=== PATIENT | male | born 1950 | race Caucasian/White ===

== ENCOUNTER 2024-08-06 17:58 | Inpatient (IN) | payer OTHER, MEDICAID ==
[~2024-08-06] VITALS: Ht 180.3 cm; Wt 69.4 kg
[2024-08-06] MEDS: NOREPINEPHRINE 8 MG/250ML KIT 250 ML IV SCH
--- NOTE | 2024-08-06 18:12 | ED.PDOC ---
History of Present Illness HPI Comments 74 year old male with a history of COPD, HTN, and A-Fib was BIBA for the c/c of SOB. Pt states that he was at home with his sister and nephew when he started feeling SOB 3x hours ago with no alleviating factors at this time. Pt notes he is also experiencing associated N/, chills, and a Cough that produces yellow colored Phlegm. Pt also notes of being here at [facility] 13x days ago and he is noted to have been Dx with Pneumonia and Sepsis. No other symptoms or modifying factors reported at this time. Time Seen by MD: 18:04 Reviewed Notes: Nurses Notes, Boiler Technician Notes, Medications, Allergies Allergies: Coded Allergies: NO KNOWN ALLERGIES (Unverified , 08/06/24) Information Source: Patient, Emergency Med Personnel Mode of Arrival: EMS Severity: Moderate Timing: Hours Duration: Since onset, Hours Prehospital treatment: Accucheck, Oxygen Past Medical History PAST MEDICAL HISTORY: AFIB, COPD, HTN Surgical History: Denies all surgeries Family History Family History: Reviewed,noncontributory to illness, No family hx of Cancer, No family hx of DM, No family hx of Heart annie, No family hx of HTN, No family hx ofKidney annie, No family hx of Liver annie, No family hx of Lung annie, No family hx of Stroke Social History Smoker: Secondhand Alcohol: Denies ETOH Use Drugs: Denies Drug Use Lives In: Home Constitutional: reports: chills; denies: diaphoresis, fatigue, fever, malaise, sweats, weakness, others EENTM: denies: blurred vision, double vision, ear bleeding, ear discharge, ear drainage, ear pain, ear ringing, eye pain, eye redness, hearing loss, mouth pain, mouth swelling, nasal discharge, nose bleeding, nose congestion, nose pain, photophobia, tearing, throat pain, throat swelling, voice changes, others Respiratory: reports: cough; denies: hemoptysis, orthopnea, SOB at rest, shortness of breath, SOB with excertion, stridor, wheezing, others Cardiovascular: denies: chest pain, dizzy spells, diaphoresis, Dyspnea on exertion, edema, irregular heart beat, left arm pain, lightheadedness, palpitations, PND, syncope, others Gastrointestinal: reports: nausea; denies: abdomen distended, abdominal pain, blood streaked bowels, constipated, diarrhea, dysphagia, difficulty swallowing, hematemesis, melena, poor appetite, poor fluid intake, rectal bleeding, rectal pain, vomiting, others Genitourinary: denies: burning, dysuria, flank pain, frequency, hematuria, incontinence, penile discharge, penile sore, pain, testicle pain, testicle swelling, urgency, others Neurological: denies: dizziness, fainting, headache, left sided numbness, left sided weakness, numbness, paresthesia, pre-existing deficit, right sided numbness, right sided weakness, seizure, speech problems, tingling, tremors, weakness, others Musculoskeletal: denies: back pain, gout, joint pain, joint swelling, muscle pain, muscle stiffness, neck pain, others Integumetry: denies: bruises, change in color, change in hair/nails, dryness, laceration, lesions, lumps, rash, wounds, others Allergic/Immunocompromised: denies: Difficulty Healing, Frequent Infections, Hives, Itching, others Hematologic/Lymphatic: denies: anemia, blood clots, easy bleeding, easy bruising, swollen glands, others Endocrine: denies: excessive hunger, excessive sweating, excessive thirst, excessive urination, flushing, intolerance to cold, intolerance to heat, unexplained weight gain, unexplained weight loss, others Psychiatric: denies: anxiety, bipolar disorder, depression, hopeless, panic disorder, schizophrenia, sleepless, suicidal, others All Other Systems: Reviewed and Negative Physical Exam General Appearance: Moderate Distress HEENT: Normal ENT Inspection, Pharynx Normal, TMs Normal Neck: Full Range of Motion, Non-Tender, Normal, Normal Inspection Respiratory: Chest Non-Tender, Lungs Clear, No Accessory Muscle Use, No Respir atory Distress, Normal Breath Sounds Cardiovascular: No Edema, No JVD, No Murmur, No Gallop, Normal Peripheral Pulses, Regular Rate/Rhythm Breast Exam: Deferred Gastrointestinal: No Organomegaly, Non Tender, No Pulsatile Mass, Normal Bowel Sounds, Soft Genitalia: Deferred Pelvic: Deferred Rectal: Deferred Extremities: No calf tenderness, Normal capillary refill, No pedal edema Musculoskeletal : Apperance: Normal Neurologic: Alert, head of stock II-XII nml as Tested, Motor Weakness, Normal Affect, Normal Mood, No Sensory Deficits Cerebellar Function: Unable to Test Reflexes: Normal Skin: Dry, Normal Color, Warm Lymphatic: No Adenopathy Was a procedure done? Was a procedure done?: No Differential Dx Considerations may include: Generalized weakness, pneumonia, electrolyte imbalance, dehydration X-Ray, Labs, Meds, VS Vital Signs Date Time Temp Pulse Resp B/P (MAP) Pulse Ox O2 Delivery O2 Flow Rate FiO2 08/06/24 20:16 120 18 96 Nasal Cannula* 5 40 08/06/24 20:16 98.1 120 18 130/78 (95) 97 98.1 08/06/24 20:00 121 08/06/24 18:26 117 08/06/24 18:16 97.1 118 44 128/107 (114) 85 97.1 08/06/24 18:16 118 44 85 Nasal Cannula* 5 40 08/06/24 18:15 33 100 Nasal Cannula* 4 36 08/06/24 18:08 98.1 116 24 118/93 (101) 99 98.1 Lab Test 08/06/24 21:07 08/06/24 19:37 08/06/24 18:15 Range/Units Sodium Level Pending 144 136-145 mmol/L Potassium Level Pending 5.0 3.5-5.1 mmol/L Chloride Level Pending 105 98-107 mmol/L Carbon Dioxide Level Pending 16 L 20-31 mmol/L Anion Gap Pending 23 H 5-15 Blood Urea Nitrogen Pending 62 H 9-23 mg/dL Creatinine Pending 4.03 H 0.700-1.30 mg/dL Glomerular Filtration Rate Calc Pending 15 >90 mL/min BUN/Creatinine Ratio Pending 15.4 10.0-20.0 Serum Glucose Pending 109 H 74-106 mg/dL Calcium Level Pending 9.5 8.7-10.4 mg/dL Magnesium Level Pending Total Bilirubin Pending Direct Bilirubin Pending Aspartate Amino Transferase (AST) Pending Alanine Aminotransferase (ALT) Pending Alkaline Phosphatase Pending Troponin I High Sensitivity Pending 21 17 </=54 ng/L Total Protein Pending Albumin Pending White Blood Count 3.8 L 4.4-10.8 10^3/uL Red Blood Count 4.41 L 4.5-5.90 10^6/uL Hemoglobin 13.6 13.5-17.5 g/dL Hematocrit 41.2 41.0-53.0 % Mean Corpuscular Volume 93.4 80.0-100.0 fL Mean Corpuscular Hemoglobin 30.8 28.0-32.0 pg Mean Corpuscular Hemoglobin Concent 33.0 32.0-36.0 g/dL Red Cell Distribution Width 22.5 H 11.8-14.3 % Platelet Count 247 140-450 10^3/uL Mean Platelet Volume 9.4 6.9-10.8 fL Neutrophils (%) (Auto) 78.0 37.0-80.0 % Lymphocytes (%) (Auto) 13.4 10.0-50.0 % Monocytes (%) (Auto) 8.4 0.0-12.0 % Eosinophils (%) (Auto) 0.1 0.0-7.0 % Basophils (%) (Auto) 0.1 0.0-2.0 % Neutrophils # (Auto) 3.0 1.6-8.6 10 ^3/uL Lymphocytes # (Auto) 0.5 0.4-5.4 10 ^3/uL Monocytes # (Auto) 0.3 0-1.3 10 ^3/uL Eosinophils # (Auto) 0 0-0.8 10 ^3/uL Basophils # (Auto) 0 0-0.2 10 ^3/uL Nucleated Red Blood Cells 1.1 % Prothrombin Time Pending Prothrombin Time INR Pending Activated Partial Thromboplast Time Pending Hemoglobin A1c Pending B-Type Natriuretic Peptide 50.58 0-100 pg/mL Vitamin B12 Level Pending Folic Acid Pending Thyroid Stimulating Hormone (TSH) Pending Current Medications Medications (Trade) Dose Ordered Sig/[facility] Route Start Time Stop Time Status Last Admin Methylprednisolone Sodium Succinate (Solu Medrol) 125 mg ONCE ONCE IV 08/06/24 18:15 08/06/24 18:16 DC 08/06/24 18:15 Ipratropium [place] (Atrovent Medneb) 1 mg ONCE ONCE HHN 08/06/24 18:15 08/06/24 18:16 DC 08/06/24 18:34 Albuterol (Ventolin Medneb) 20 mg ONCE ONCE HHN 08/06/24 18:15 08/06/24 18:16 DC 08/06/24 18:34 CBC is within normal limits The chemistry panel shows a CO2 of 16 The anion gap is elevated at 23 The BUN is 62 and the creatinine is 4.03 The patient is having some shortness a breath and so was given a breathing treatment of albuterol and Atrovent as a continuous The patient was given Solu-Medrol 125 mg IV push At this time, the patient is being admitted IMPRESSION: Right basilar atelectasis/ pneumonia with mild pulmonary vascular congestion / senescent changes. The patient is admitted Images Reviewed?: Images reviewed and evaluated by me Time of 1ST Reevaluation: 18:34 Reevaluation 1ST: Unchanged Patient Education/Counseling: Diagnosis, Treatment, Prognosis Family Education/Counseling: No Family Present SEPSIS Sepsis Screen Physician Orders Urinalysis (08/06/24 18:05) Med Neb Initial Treatment (08/06/24 18:05) Chest Portable (08/06/24 18:05) Heplock Iv (08/06/24 18:05) Pulse Oximetry (08/06/24 18:05) Liquid Chlorine Operator (08/06/24 18:05) Blood Pressure (08/06/24 18:05) Troponin-I Hs (08/06/24 21:05) Electrocardigram (08/06/24 19:05) Electrocardigram (08/06/24 21:05) Vital Signs Date Time Temp Pulse Resp B/P (MAP) Pulse Ox O2 Delivery O2 Flow Rate FiO2 08/06/24 20:16 120 18 96 Nasal Cannula* 5 40 08/06/24 20:16 98.1 120 18 130/78 (95) 97 98.1 08/06/24 20:00 121 08/06/24 18:26 117 08/06/24 18:16 97.1 118 44 128/107 (114) 85 97.1 08/06/24 18:16 118 44 85 Nasal Cannula* 5 40 08/06/24 18:15 33 100 Nasal Cannula* 4 36 08/06/24 18:08 98.1 116 24 118/93 (101) 99 98.1 Laboratory Tests Test 08/06/24 18:15 White Blood Count 3.8 10^3/uL (4.4-10.8) L Medications Medications Dose Ordered Sig/Mary Route Start Time Stop Time Status Last Admin Dose Admin Albuterol 20 mg ONCE ONCE HHN 08/06/24 18:15 08/06/24 18:16 DC 08/06/24 18:34 Ipratropium [place] 1 mg ONCE ONCE HHN 08/06/24 18:15 08/06/24 18:16 DC 08/06/24 18:34 Methylprednisolone Sodium Succinate 125 mg ONCE ONCE IV 08/06/24 18:15 08/06/24 18:16 DC 08/06/24 18:15 Departure 1 Departure Time of Disposition: 21:30 Impression: Primary Impression: Generalized weakness Additional Impression: Autonomic dysfunction Disposition: ADMITTED INPATIENT Admit to: [facility] Condition: Fair Critical Care Note Critical Care Time?: Yes (45 min-critical care time only) Stability Stability form required: Yes Unstable for transfer: Telemetry monitoring (Telemetry monitoring required), ED Physician Assesment (Clinical assesment) Heart Score Heart Score: Heart Score Response (Comments) Value History N/A 0 EKG N/A 0 Age N/A 0 Risk Factors N/A 0 Troponin N/A 0 Total 0 I personally scribed for MADY ROMERO MD ([email or web address]) on 08/06/24 at 18:12. Electronically submitted by Dharmesh Shaver ([email or web address]). I personally scribed for MADY ROMERO MD ([email or web address]) on 08/06/24 at 19:36. Electronically submitted by Dahrmesh Shaver ([email or web address]). MADY ROMERO MD Aug 06, 2024 18:12
[2024-08-06] MEDS: methylPREDNISolone SOD SUCC 125 MG/2 ML VL IV ONE (18:15)
[2024-08-06 18:16] VITALS: PULSE 118; RESP 44; O2SAT 85
--- NOTE | 2024-08-06 18:27 | ECG ---
[facility] Test Date: 2024-08-06 Test Time: 18:26:11 Pat Name: BEE OSBORN Department: ED Room: 0264 Gender: M Transition Manager: MARZENA : 1950 Requested By: MADY ROMERO Order Number: [id number] Reading MD: Yann Lal Measurements Intervals [place] Rate: 117 P: 77 NM: 114 QRS: -90 QRSD: 94 T: 81 QT: 360 QTc: 503 Interpretive Statements Sinus tachycardia RVH with secondary repolarization abnrm Inferolateral infarct, old Prolonged QT interval Baseline wander in lead(s) V3 Electronically Signed On 08-07-2024 22:56:14 PDT by Yann Lal Please click the below link to view image of tracing.
[2024-08-06] MEDS: ALBUTEROL SULF 2.5 MG/0.5ML(0.5%) NEB SOLN HHN ONE (18:34)
[2024-08-06] MEDS: IPRATROPIUM BROM 0.5 MG/2.5ML INH SOL HHN ONE (18:34)
[2024-08-06 18:43] LABS: Chloride 105 mmol/L (98-107); Sodium 144 mmol/L (136-145)
[2024-08-06 18:44] LABS: Anion Gap 23 (5-15)
[2024-08-06 18:45] LABS: Calcium 9.5 mg/dL (8.7-10.4)
[2024-08-06 18:49] LABS: BUN/Creatinine Ratio 15.4 (10.0-20.0)
[2024-08-06 18:54] LABS: Blood Urea Nitrogen 62 mg/dL (9-23); Carbon Dioxide 16 mmol/L (20-31); Glucose 109 mg/dL (74-106)
[2024-08-06 18:56] LABS: Basophils # (auto) 0 10 ^3/uL (0-0.2); Basophils % (auto) 0.1 % (0.0-2.0); Eosinophils # (auto) 0 10 ^3/uL (0-0.8); Eosinophils % (auto) 0.1 % (0.0-7.0); Hematocrit 41.2 % (41.0-53.0); Hemoglobin 13.6 g/dL (13.5-17.5); Lymphocytes # (auto) 0.5 10 ^3/uL (0.4-5.4); Lymphocytes % (auto) 13.4 % (10.0-50.0); Mean Corpuscular Hemoglobin 30.8 pg (28.0-32.0); Mean Corpuscular Volume 93.4 fL (80.0-100.0); Monocytes # (auto) 0.3 10 ^3/uL (0-1.3); Monocytes % (auto) 8.4 % (0.0-12.0); Nucleated Red Blood Cells % 1.1 %; Platelet Count (auto) 247 10^3/uL (140-450); Red Blood Cells 4.41 10^6/uL (4.5-5.90); White Blood Cell 3.8 10^3/uL (4.4-10.8)
[2024-08-06 18:58] LABS: Red Cell Distribution Width 22.5 % (11.8-14.3)
--- NOTE | 2024-08-06 19:04 | DVH ---
CHEST RADIOGRAPH Indication: sob Technique: Single frontal view of the chest was obtained Comparison: None FINDINGS: Lines and Tubes: None Lungs: External artifact overlies the right lung apex limiting evaluation. Right basilar opacity. Mil d interstitial prominence. Pleura: No effusion. No pneumothorax. Cardiomediastinal contours: Unremarkable Bones: No acute osseous abnormality. IMPRESSION: Right basilar atelectasis/ pneumonia with mild pulmonary vascular congestion / senescent changes.
[2024-08-06 20:16] VITALS: PULSE 120; RESP 18; O2SAT 96
[2024-08-06] MEDS: PIPERACILLIN-TAZO 4.5GM 100 ML IV ONE (21:15)
[2024-08-06 21:21] VITALS: BP 130/78; PULSE 102; RESP 18; TEMP 98.7; O2SAT 97
--- NOTE | 2024-08-06 21:22 | DVHHPRES ---
History of Present Illness Resident Creating Document: MARLON TY RESIDENT History of Present Illness 73-year-old Male with past medical history of COPD, hypertension, AFib, questionable CHF, questionable CKD presented with complaints of syncopal episode that heparin 4 hours before presented to the. Patient was seen by his daughter to be passing out and as per the patient he passed out for 10 minutes. Patient also mentioned that has been having shortness of breath at the same time it was associated with cough, nausea, vomiting and chills. On presented to the ED patient was found to be tachypneic and tachycardiac. Patient was seen and examined bedside. Patient was currently on room air. He is mentioning of generalized weakness and we will dizziness but not mentioning of any shortness of breath, cough, chest pain, nausea, vomiting, abdominal pain. He was recently admitted in [facility] for pneumonia and sepsis. Past medical history COPD, hypertension, AFib, questionable CHF, questionable CKD Surgical history Denied any recent surgery Medication History Metoprolol, Amlodipine, Eliquis, Tizanidine Social History Ex-smoker, quit four months ago used to smoke for more than 20 years, History of alcohol use disorder but not actively consuming Did not marijuana or any other drug intake Lives With daughter Family history Noncontributory to the above illness Allergic history No known allergies Review of Systems Review of Systems As described in the HPI Allergies: Coded Allergies: NO KNOWN ALLERGIES (Unverified , 08/06/24) Medications Current Medications Medications Dose Ordered Sig/Mary Route Start Time Stop Time Status Last Admin Dose Admin Piperacillin Sod/ Tazobactam Sod 100 ml @ 25 mls/hr Q12HR IV 08/06/24 22:00 UNV Albuterol 2.5 mg Q4HPRN PRN NEB 08/06/24 21:15 UNV Ipratropium Christine 0.5 mg Q4HPRN PRN NEB 08/06/24 21:15 UNV Linezolid 300 ml @ 150 mls/hr Q12HR IV 08/06/24 22:00 UNV Exam Vital Signs Vital Signs Date Time Temp Pulse Resp B/P (MAP) Pulse Ox O2 Delivery O2 Flow Rate FiO2 08/06/24 20:16 120 18 96 Nasal Cannula* 5 40 08/06/24 20:16 98.1 130/78 (95) 98.1 Exam Examination General Appearance: Alert, Oriented X3, Cooperative, No acute distress HEENT: EOMI Respiratory: Clear to auscultation, Normal air movement Cardiovascular: Regular rate, Normal S1, Normal S2 Abdominal: Normal bowel sounds, ecchymosis right flank Extremities: No cyanosis, No edema, Normal pulses, No tenderness/swelling Skin: No rashes, No breakdown Neuro: Speech and tone, gait not assessed Point of care ultrasound done at bedside Lung ultrasound B lines on the right lower lobe IVC Greater than 50% collapsibility Limited cardiac ultrasound because of technical difficulty Labs/Xrays Labs Test 08/06/24 21:07 08/06/24 18:15 Range/Units White Blood Count 3.8 L 4.4-10.8 10^3/uL Red Blood Count 4.41 L 4.5-5.90 10^6/uL Hemoglobin 13.6 13.5-17.5 g/dL Hematocrit 41.2 41.0-53.0 % Mean Corpuscular Volume 93.4 80.0-100.0 fL Mean Corpuscular Hemoglobin 30.8 28.0-32.0 pg Mean Corpuscular Hemoglobin Concent 33.0 32.0-36.0 g/dL Red Cell Distribution Width 22.5 H 11.8-14.3 % Platelet Count 247 140-450 10^3/uL Mean Platelet Volume 9.4 6.9-10.8 fL Neutrophils (%) (Auto) 78.0 37.0-80.0 % Lymphocytes (%) (Auto) 13.4 10.0-50.0 % Monocytes (%) (Auto) 8.4 0.0-12.0 % Eosinophils (%) (Auto) 0.1 0.0-7.0 % Basophils (%) (Auto) 0.1 0.0-2.0 % Neutrophils # (Auto) 3.0 1.6-8.6 10 ^3/uL Lymphocytes # (Auto) 0.5 0.4-5.4 10 ^3/uL Monocytes # (Auto) 0.3 0-1.3 10 ^3/uL Eosinophils # (Auto) 0 0-0.8 10 ^3/uL Basophils # (Auto) 0 0-0.2 10 ^3/uL Nucleated Red Blood Cells 1.1 % Sodium Level 144 136-145 mmol/L Potassium Level 5.0 3.5-5.1 mmol/L Chloride Level 105 98-107 mmol/L Carbon Dioxide Level 16 L 20-31 mmol/L Anion Gap 23 H 5-15 Blood Urea Nitrogen 62 H 9-23 mg/dL Creatinine 4.03 H 0.700-1.30 mg/dL Glomerular Filtration Rate Calc 15 >90 mL/min BUN/Creatinine Ratio 15.4 10.0-20.0 Serum Glucose 109 H 74-106 mg/dL Calcium Level 9.5 8.7-10.4 mg/dL B-Type Natriuretic Peptide 50.58 0-100 pg/mL Assessment/Plan Assessment/Plan A and P # shock likely hypovolemic shock/septic shock IV fluids followed by norepinephrine drip Currently on norepinephrine at 4 Retroperitoneal hemorrhage measures up to 10 cm longitudinal. right iliacus intramuscular hemorrhage. ( SEEN ON CT ) # severe Sepsis with septic shock likely due to ?aspiration pneumonia, other sources not identified yet -IV fluids, small boluses (history of CHF) -IV antibiotics -cultures -Lactic acid -ABG #Acute hypoxic resp failure due to sepsis, ?aspiration pneumonia -currently on room air CT chest shows No focal pneumonia. #Chronic HFpEF, ?acute exacerbation -echo #Multiple pulmonary nodules seen on chest CT : Multiple pulmonary nodules (at least 8) are seen throughout both lungs, the largest measuring up to 10 mm in the left upper lobe. Recommend PET-CT for further evaluation. #Mediastinal lymphadenopathy, left paratracheal lymph node measuring up to 1.5 cm. -seen on chest CT #Small right pleural effusion possible exudative ? parapneumonic effusion ?transudative -seen on chest CT -consider thoracentesis #FILIPPO on CKD likely due to vasomotor nephropathy due to sepsis -iV fluids urine studies pending # Retroperitoneal hemorrhage measures up to 10 cm longitudinal. # likely right iliacus intramuscular hemorrhage. -seen on CT surgical #COPD Severe centrilobular emphysema seen on chest CT -no wheezing PRN albuterol and ipratropium #Afib, now sinus tachycardia EKG hold anticoagulation, retroperitoneal hemorrhage on imaging #Syncope -echo ekg tsh b12 fdolate head CT #Hypertension -currently in shock #history of Cirrhosis #Coagulopathy due to ?sepsis ?liver cirrohsis ?anticoagulation therapy IV access : Peripheral lines Critical care time excluding procedures >77 min Code status discussed with the patient for 21 min, FULL CODE Case discussion with Dr Martinez Plan discussed with: Other My Orders Orders - MARLON TY RESIDENT Procedure Category Date Status Time Complete Blood Count LAB 08/06/24 Logged 21:07 Comprehensive LAB 08/06/24 Logged Metabolic Panel 21:07 B-Type Natriuretic LAB 08/06/24 Logged Peptide 21:07 Urinalysis LAB 08/06/24 Logged 21:07 Magnesium LAB 08/06/24 Logged 21:07 Sodium Chloride 0.9% PHA 08/06/24 In Process 21:15 Troponin-I Hs LAB 08/06/24 Logged 22:07 Troponin-I Hs LAB 08/07/24 Verified 00:07 Admit ADMIT 08/06/24 Transmitted 21:07 Oxygen By Nasal RT 08/06/24 Transmitted Cannula 21:07 Stat Ekg For Chest JOSE 08/06/24 In Process Pain 21:07 Notify Of Changes JOSE 08/06/24 In Process From Base 21:07 Shank Cementer Hand For [facility] 08/06/24 In Process 24 Hours 21:07 Emergency Dysrhythmia JOSE 08/06/24 In Process Protocol 21:07 Rhythm Strips Once JOSE 08/06/24 In Process Every Shift 21:07 Piperacillin-Tazo PHA 08/06/24 In Process 4.5gm (Zosyn 4.5gm/100 21:15 Piperacillin-Tazob PHA 08/06/24 Logged 3.375gm (Zosyn 3.375g 22:00 Lactic Acid W/ Reflex LAB 08/06/24 Logged Order 21:07 Bilat Lower Dvt US 08/06/24 Logged 21:07 Albuterol Medneb PHA 08/06/24 Logged (Ventolin Medneb) 21:15 Ipratropium Medneb PHA 08/06/24 Logged (Atrovent Medneb) 21:15 Covid19 Antigen Yamel LAB 08/06/24 Logged Rapid Influenza A&B LAB 08/06/24 Logged 21:07 Mrsa Screen IRIS 08/06/24 Logged 21:07 Linezolid 600mg/300ml PHA 08/06/24 Logged (Zyvox) 22:[address] 08/06/24 Logged 21:12 Urine Creatinine LAB 08/06/24 Transmitted 21:12 Urine Sodium LAB 08/06/24 Transmitted 21:[address] 08/06/24 Logged 21:12 Blood Culture IRIS 08/06/24 Verified 21:14 Respiratory Culture IRIS 08/06/24 Verified W/ Gs 21:14 Sputum Induction RT 08/06/24 Verified 21:14 Date of Service: Aug 06, 2024 Billing Provider: PATI MARTINEZ MD Common Visit Codes: 37021-[id number] INP/OBS CARE (HIGH) Secondary Visit Codes: 82812-[id number] CARE PLAN 30 MINUTES MARLON TY RESIDENT Aug 06, 2024 21:22
[2024-08-06] MEDS: SODIUM CHLORIDE 0.9% 250 ML IV ONE ×2 (21:28→23:24)
[2024-08-06] MEDS ORDERED: ACETAMINOPHEN 500 MG TAB or CAP PO PRN (21:30)
[2024-08-06 21:52] LABS: Base Excess -9.3 mmol/L (-2.0-3.0)
[2024-08-06 21:53] LABS: Anion Gap 22 (5-15); BUN/Creatinine Ratio 12.5 (10.0-20.0); Calcium 9.3 mg/dL (8.7-10.4); Chloride 107 mmol/L (98-107); Glucose 102 mg/dL (74-106); Potassium 4.8 mmol/L (3.5-5.1); Sodium 141 mmol/L (136-145)
--- NOTE | 2024-08-06 21:53 | DVH ---
EXAM: CT HEAD WITHOUT CONTRAST INDICATION: syncope TECHNIQUE: CT of the head without intravenous contrast. Radiation Dose : 1. Head: CT Dose: CTDI volume is 61.61 mGy. Dose-length product is 1181.37 mGy*cm The dose indicators for CT are the volume Computed Tomography (CT) Dose Index (CTDIvol) and the Dose Length Product (DLP), and are measured in units of mGy and mGy-cm, respectively. These indicators are not patient dose, but values generated from the CT scanner acquisition factors. The report includes radiation exposure data for exposures received during this examination. COMPARISON: None FINDINGS: There is no evidence of acute intracranial hemorrhage, extra-axial collection, mass effect, midline s hift, herniation or hydrocephalus. The ventricles, sulci and cisterns are age appropriate. The sheffield-white differentiation is intact. Patchy periventricular and subcortical white matter hypoattenuation is nonspecific but may be related to small vessel ischemic disease. The visualized paranasal sinuses and mastoid air cells are clear. The surrounding soft tissues and osseous structures are unremarkable. IMPRESSION: 1. No acute intracranial abnormality. Radiation optimization: All CT scans at this facility use at least one of these dose optimization geovanna hniques: automated exposure control mA and/or kV adjustment per patient size (includes targeted exam s where dose is matched to clinical indication) or iterative reconstruction.
[2024-08-06 21:55] LABS: Folate (Folic Acid) 14.61 ng/mL (>5.38)
[2024-08-06 21:56] LABS: Alanine Aminotransferase 77 U/L (7-40); Aspartate Aminotransferase 143 U/L (<34); Bilirubin, Direct 2.8 mg/dL (<0.3); Bilirubin, Total 3.6 mg/dL (0.2-1.0); Blood Urea Nitrogen 50 mg/dL (9-23); Carbon Dioxide 12 mmol/L (20-31); Total Protein 5.1 g/dL (5.7-8.2)
[2024-08-06 22:04] LABS: INR 3.84 (0.9-1.15); Partial Thromboplastin Time 52.1 SEC (24.5-34.5); Prothrombin Time 35.6 sec (9.3-11.8)
[2024-08-06 22:15] LABS: Alkaline Phosphatase 1240 U/L (46-116)
[2024-08-06] MEDS ORDERED: HEPARIN SODIUM (PORCINE) 5000 UNITS/ML 1ML VIAL IV ONE (22:15)
[2024-08-06 22:27] LABS: Magnesium 2.7 mg/dL (1.6-2.6)
--- NOTE | 2024-08-06 22:35 | DVH ---
Bilateral lower extremity venous duplex Clinical History: rule out DVT Comparison: None Technique: Duplex Doppler evaluation of the deep venous systems of both lower extremities from the common femora l veins to the popliteal veins including color Doppler and spectral/pulsed waveform analysis was perf ormed. Findings: RIGHT SIDE: The common femoral vein demonstrates appropriate compressibility and waveform variability. There is compressibility/patency of the great saphenous vein at the proximal thigh. The femoral vein demonstrates appropriate compressibility and waveform variability. The deep femoral vein demonstrates appropriate compressibility and waveform variability. The popliteal vein demonstrates appropriate compressibility and waveform variability. There is normal compressibility at the tibioperoneal trunk. LEFT SIDE: The common femoral vein demonstrates appropriate compressibility and waveform variability. There is compressibility/patency of the great saphenous vein at the proximal thigh. The femoral vein demonstrates appropriate compressibility and waveform variability. The deep femoral vein demonstrates appropriate compressibility and waveform variability. The popliteal vein demonstrates appropriate compressibility and waveform variability. There is normal compressibility at the tibioperoneal trunk. Impression: 1. No right or left femoropopliteal venous thrombosis.
[2024-08-06 22:36] LABS: Lactic Acid w/Reflex 11.9 mmol/L (0.4-2.0)
[2024-08-06 23:11] LABS: Basophils # (auto) 0 10 ^3/uL (0-0.2); Basophils % (auto) 0.4 % (0.0-2.0); Eosinophils # (auto) 0 10 ^3/uL (0-0.8); Eosinophils % (auto) 0.1 % (0.0-7.0); Hematocrit 37.1 % (41.0-53.0); Hemoglobin 12.3 g/dL (13.5-17.5); Lymphocytes # (auto) 0.2 10 ^3/uL (0.4-5.4); Lymphocytes % (auto) 3.8 % (10.0-50.0); Mean Corpuscular Hemoglobin 31.1 pg (28.0-32.0); Mean Corpuscular Volume 94.3 fL (80.0-100.0); Monocytes # (auto) 0.3 10 ^3/uL (0-1.3); Monocytes % (auto) 5.9 % (0.0-12.0); Neutrophils # (auto) 4.2 10 ^3/uL (1.6-8.6); Neutrophils % (auto) 89.8 % (37.0-80.0); Nucleated Red Blood Cells % 0.4 %; Platelet Count (auto) 257 10^3/uL (140-450); Red Blood Cells 3.94 10^6/uL (4.5-5.90); Red Cell Distribution Width 22.8 % (11.8-14.3); White Blood Cell 4.7 10^3/uL (4.4-10.8)
[2024-08-06 23:24] LABS: Partial Thromboplastin Time 57.5 SEC (24.5-34.5); Prothrombin Time 47.8 sec (9.3-11.8)
[2024-08-06 23:30] VITALS: PULSE 99; RESP 28; O2SAT 100
[2024-08-06] MEDS: SODIUM CHLORIDE 0.9% 1,000 ML IV ONE (23:30)
[2024-08-06 23:32] LABS: INR 5.32 (0.9-1.15)
[2024-08-06] MEDS: LINEZOLID 600MG/300ML 300 ML IV SCH (23:54)
[2024-08-07] VITALS (95 sets, daily range): BP systolic 78–116; BP diastolic 49–77; PULSE 52–135; RESP 14–43; TEMP 95.5–98.1; O2SAT 97–100
[2024-08-07] MEDS: HEPARIN DRIP/D5W 100UNITS/ML 250 ML IV SCH (00:12)
[2024-08-07] MEDS: IPRATROPIUM BROM 0.5 MG/2.5ML INH SOL NEB PRN (00:59)
[2024-08-07] MEDS: ALBUTEROL SULF 2.5 MG/0.5ML(0.5%) NEB SOLN NEB PRN (00:59)
--- NOTE | 2024-08-07 01:04 | DVH ---
Procedure: CT CHEST WITHOUT CONTRAST Reason for study/Clinical History: [facility] Comparison Study: None Exam Date: 08/06/2024 09:26 PM TECHNIQUE: Multidetector CT of the chest was performed from the lung apices to the upper abdomen with out the use of intravenous contract. Axial, coronal and sagittal multiplanar reformats were performed . Radiation Dose Information: CT Dose: CTDI volume is 5.1 mGy. Dose-length product is 1181 mGy*cm The dose indicators for CT are the volume Computed Tomography (CT) Dose Index (CTDIvol) and the Dose Length Product (DLP), and are measured in units of mGy and mGy-cm, respectively. These indicators are not patient dose, but values generated from the CT scanner acquisition factors. The report includes radiation exposure data for exposures received during this examination. FINDINGS: Lower neck: Normal thyroid. Lungs: No focal consolidation, pleural effusion or pneumothorax. Multiple pulmonary nodules (at least 8) are seen throughout both lungs, the largest measuring up to 10 mm in the left upper lobe. Severe centrilobular emphysema. Heart/Vascular Structures: Normal heart size. No pericardial effusion. Lymph Nodes: Mediastinal lymphadenopathy, for example a left paratracheal lymph node measuring up to 1.5 cm. Pleura: Small right pleural effusion. Musculoskeletal: No acute osseous abnormality. Soft tissues: Normal. Upper abdomen: Limited portions of the upper abdomen are unremarkable. IMPRESSION: 1. No focal pneumonia. 2. Multiple pulmonary nodules (at least 8) are seen throughout both lungs, the largest measuring up t o 10 mm in the left upper lobe. Recommend PET-CT for further evaluation. 3. Severe centrilobular emphysema. 4. Mediastinal lymphadenopathy, for example a left paratracheal lymph node measuring up to 1.5 cm. 5. Small right pleural effusion. Radiation optimization: All CT scans at this facility use at least one of these dose optimization geovanna hniques: automated exposure control mA and/or kV adjustment per patient size (includes targeted exam s where dose is matched to clinical indication) or iterative reconstruction.
[2024-08-07 03:48] LABS: COVID19 ANTIGEN SOFIA FIA NEGATIVE (NEGATIVE); Rapid Influenza A Negative (Negative); Rapid Influenza B Negative (Negative)
[2024-08-07 05:14] LABS: Chloride 106 mmol/L (98-107); Potassium 4.4 mmol/L (3.5-5.1); Sodium 143 mmol/L (136-145)
[2024-08-07 05:15] LABS: Anion Gap 26 (5-15)
[2024-08-07 05:18] LABS: Hemoglobin 11.9 g/dL (13.5-17.5); Mean Corpuscular Hemoglobin 31.1 pg (28.0-32.0); Mean Corpuscular Hgb Conc. 33.1 g/dL (32.0-36.0); Mean Corpuscular Volume 94.1 fL (80.0-100.0); Platelet Count (auto) 259 10^3/uL (140-450); Red Blood Cells 3.83 10^6/uL (4.5-5.90); Red Cell Distribution Width 22.4 % (11.8-14.3); White Blood Cell 6.7 10^3/uL (4.4-10.8)
[2024-08-07 05:19] LABS: Calcium 7.9 mg/dL (8.7-10.4); Carbon Dioxide 11 mmol/L (20-31)
[2024-08-07 05:20] LABS: BUN/Creatinine Ratio 14.1 (10.0-20.0)
[2024-08-07 05:22] LABS: Basophils % (manual) 0 (0.0-2.0); Blast Cells 0; Eosinophils % (manual) 0 (0-7); Metamyelocytes % 0; Myelocytes % 0; Promyelocytes % 0; Reactive Lymphocytes 0
--- NOTE | 2024-08-07 05:29 | DVH ---
EXAM: XY CHEST PORTABLE Indication: SOB Technique: Single frontal view of the chest was obtained Comparison: XY CHEST PORTABLE on DOS: 08/06/24 FINDINGS: Lines and Tubes: None Lungs: Pulmonary vascular congestion. Pleura: No effusion. No pneumothorax. Cardiomediastinal contours: Unremarkable Bones: No acute osseous abnormality. IMPRESSION: Pulmonary vascular congestion. Pulmonary nodules better seen on prior CT.
[2024-08-07 05:41] LABS: Glucose 232 mg/dL (74-106)
[2024-08-07 05:42] LABS: Blood Urea Nitrogen 64 mg/dL (9-23)
--- NOTE | 2024-08-07 05:47 | DVH ---
EXAM: CT CT AB PEL WO CON-NO ORAL OR IV HISTORY: lung nodules COMPARISON: CT scan of the chest dated 08/06/2024. TECHNIQUE: Helical CT images of the abdomen and pelvis were performed without IV contrast. Sagittal a nd coronal reformatted images were obtained. This CT exam was performed using one or more of the foll owing dose reduction techniques: Automated exposure control, adjustment of the mA and/or kv according to patient size, or the use of iterative reconstruction techniques. Radiation Dose: Abdomen/Pelvis: CTDIvol 12.55 mGy, DLP 641.71 mGy*cm. FINDINGS: CT abdomen: There small bilateral pleural effusions, larger on the right. There are interstitial opac ities in the bilateral lung bases. There is peribronchial thickening and mucous plugging, greatest in the right lower lobe. Emphysematous changes are better characterized on prior CT scan of the chest. The heart is not enlarged. There are coronary artery calcifications. There is a small pericardial e ffusion. The liver measures 20 cm longitudinal. The noncontrast spleen, gallbladder, pancreas, kidney s, and adrenal glands are unremarkable. No abdominal aortic aneurysm. There are atherosclerotic calci fications of the abdominal aorta and major branches. There is a retroperitoneal hemorrhage measuring 10 cm longitudinal x 4.6 cm transverse x 3.8 cm AP (images 33-49, series 2; images 64-74, series 601) . There is likely also mild intramuscular hemorrhage involving the right iliacus muscle (image 56, se quin 2). CT pelvis: No abnormal bowel dilatation or free air. There is low volume free fluid in the pelvis. T he appendix is not visualized, and there is no specific evidence of acute appendicitis. There is mode rate osteoarthritis of the hips. There is moderate to severe lumbar degenerative disc disease and fa cet arthropathy. There are thoracolumbar and lumbosacral transitional vertebrae. IMPRESSION: 1. Emphysema and reactive airways disease in the lung bases, with mucous plugging in the right lower lobe. 2. Small bilateral pleural effusions, voygv-tudubge-vcyj-left, stable since the previous day. 3. Coronary artery disease and atherosclerotic vascular disease in the abdomen and pelvis. 4. Right retroperitoneal hemorrhage measures up to 10 cm longitudinal. There is also likely right il iacus intramuscular hemorrhage. 5. Moderate to severe degenerative changes in the lumbar spine. 6. No evidence of bowel obstruction or other acute process in the abdomen or pelvis.
[2024-08-07 06:11] LABS: Band Neutrophils % (manual) 2; Lymphocytes % (manual) 1 (10.0-50.0); Monocytes % (manual) 2 (0-12)
[2024-08-07 06:12] LABS: Large Platelets FEW; Platelet Estimate Adequate
[2024-08-07] MEDS: PIPERACILLIN-TAZOB 3.375GM 100 ML IV SCH ×2 (06:37→18:00)
[2024-08-07] MEDS: LIDOCAINE 2% JELLY 11ml (GLYDO) ONE (10:43)
--- NOTE | 2024-08-07 11:11 | DVHINCON2 ---
Date of service: Aug 07, [address] Breaux Reason for Consultation Acute kidney injury History of Present Illness Patient is a 73-year-old male with past medical history of AFIB, COPD, emphysema and HTN is admitted for shortness of breath associated with cough and sputum production. On admission patient found to have elevated BUN creatinine nephrology is consulted for acute kidney injury Past Medical History PAST MEDICAL HISTORY: AFIB, COPD, HTN Past Surgical History Surgical History: Denies all surgeries Allergies: Coded Allergies: NO KNOWN ALLERGIES (Unverified , 08/06/24) Current Medications Current Medications Medications (Trade) Dose Ordered Sig/Mary Route PRN Reason Start Time Stop Time Status Last Admin Piperacillin Sod/ Tazobactam Sod 100 ml @ 25 mls/hr Q12HR IV 08/07/24 10:00 08/07/24 08:48 DC 08/07/24 06:37 Albuterol (Ventolin Medneb) 2.5 mg Q4HPRN PRN NEB SHORTNESS OF BREATH 08/06/24 21:15 08/07/24 07:39 Ipratropium [place] (Atrovent Medneb) 0.5 mg Q4HPRN PRN NEB SHORTNESS OF BREATH 08/06/24 21:15 08/07/24 07:39 Linezolid 300 ml @ 150 mls/hr Q12HR IV 08/06/24 22:00 08/07/24 10:43 Acetaminophen (Tylenol Tablet Or Capsule) 500 mg Q8HP PRN PO MILD PAIN (1-3 PAIN SCALE) 08/06/24 21:30 Heparin Sodium/ Dextrose 250 ml @ 11 mls/hr [id number] IV 08/06/24 22:15 08/07/24 02:34 DC 08/07/24 02:08 Norepinephrine Bitartrate 250 ml @ 3.75 mls/hr Q24H IV 08/06/24 23:15 08/07/24 00:00 Piperacillin Sod/ Tazobactam Sod 100 ml @ 25 mls/hr Q12H IV 08/07/24 18:00 Family History: FH: cancer G8 MOTHER Review of Systems All 12 item review of systems reviewed with the patient nonsignificant except what is mentioned in the history of present illness H&P Exam Vital Signs/I&O Vital Sign Date Time Temp Pulse Resp B/P (MAP) Pulse Ox O2 Delivery O2 Flow Rate FiO2 08/07/24 07:50 80 20 100 08/07/24 07:47 Nasal Cannula* 2 28 08/07/24 07:30 101/65 (77) 08/07/24 04:25 96.6 96.6 Intake and Output 08/06/24 08/07/24 19:00 07:00 Intake Total 1030.00 ml Output Total 0 ml Balance 1030.00 ml Intake Oral 0 ml IV Total 1030.00 ml Output Urine Total 0 ml Physical Exam Patient lying in bed with jaundic Lungs distant breath sounds Cardiac exam regular rate and rhythm GI soft nontender distended bladder Extremities no clubbing cyanosis or edema Neuro nonfocal Labs/Diagnostic Data Labs/Diagnostic Data Laboratory Tests Test 08/07/24 07:29 08/07/24 04:42 08/07/24 03:03 08/07/24 02:45 Range/Units Lactic Acid Level 8.6 *H 10.0 *H 0.4-2.0 mmol/L White Blood Count 6.7 # 4.4-10.8 10^3/uL Red Blood Count 3.83 L 4.5-5.90 10^6/uL Hemoglobin 11.9 L 13.5-17.5 g/dL Hematocrit 36.0 L 41.0-53.0 % Mean Corpuscular Volume 94.1 80.0-100.0 fL Mean Corpuscular Hemoglobin 31.1 28.0-32.0 pg Mean Corpuscular Hemoglobin Concent 33.1 32.0-36.0 g/dL Red Cell Distribution Width 22.4 H 11.8-14.3 % Platelet Count 259 140-450 10^3/uL Mean Platelet Volume 9.4 6.9-10.8 fL Neutrophils (%) (Auto) 37.0-80.0 % Lymphocytes (%) (Auto) 10.0-50.0 % Monocytes (%) (Auto) 0.0-12.0 % Basophils (%) (Auto) 0.0-2.0 % Neutrophils # (Auto) 1.6-8.6 10 ^3/uL Lymphocytes # (Auto) 0.4-5.4 10 ^3/uL Monocytes # (Auto) 0-1.3 10 ^3/uL Differential Total Cells Counted 100.0 100 Neutrophils % (Manual) 95 H 37.0-80.0 Band Neutrophils % (Manual) 2 Lymphocytes % (Manual) 1 L 10.0-50.0 Monocytes % (Manual) 2 0-12 Eosinophils % (Manual) 0 0-7 Basophils % (Manual) 0 0.0-2.0 Metamyelocytes % (manual) 0 Myelocytes % (Manual) 0 Promyelocytes % (Manual) 0 Blast Cells % (Manual) 0 Reactive Lymphocytes 0 Platelet Estimate Adequate Clumped Platelets Few Large Platelets Few Sodium Level 143 136-145 mmol/L Potassium Level 4.4 3.5-5.1 mmol/L Chloride Level 106 98-107 mmol/L Carbon Dioxide Level 11 L 20-31 mmol/L Anion Gap 26 H 5-15 Blood Urea Nitrogen 64 #H 9-23 mg/dL Creatinine 4.54 H 0.700-1.30 mg/dL Glomerular Filtration Rate Calc 13 >90 mL/min BUN/Creatinine Ratio 14.1 10.0-20.0 Serum Glucose 232 #H 74-106 mg/dL Calcium Level 7.9 L 8.7-10.4 mg/dL Carcinoembryonic Antigen 2.73 <=5.0 ng/mL Influenza Type A Antigen Negative Negative Influenza Type B Antigen Negative Negative SARS-CoV-2 Antigen (Rapid) Negative NEGATIVE Test 08/07/24 00:35 08/06/24 22:49 08/06/24 21:51 08/06/24 21:45 Range/Units Lactic Acid Level 11.7 *H 11.9 *H 0.4-2.0 mmol/L Troponin I High Sensitivity 28 </=54 ng/L White Blood Count 4.7 4.4-10.8 10^3/uL Red Blood Count 3.94 L 4.5-5.90 10^6/uL Hemoglobin 12.3 L 13.5-17.5 g/dL Hematocrit 37.1 L 41.0-53.0 % Mean Corpuscular Volume 94.3 80.0-100.0 fL Mean Corpuscular Hemoglobin 31.1 28.0-32.0 pg Mean Corpuscular Hemoglobin Concent 33.0 32.0-36.0 g/dL Red Cell Distribution Width 22.8 H 11.8-14.3 % Platelet Count 257 140-450 10^3/uL Mean Platelet Volume 9.4 6.9-10.8 fL Neutrophils (%) (Auto) 89.8 H 37.0-80.0 % Lymphocytes (%) (Auto) 3.8 L 10.0-50.0 % Monocytes (%) (Auto) 5.9 0.0-12.0 % Eosinophils (%) (Auto) 0.1 0.0-7.0 % Basophils (%) (Auto) 0.4 0.0-2.0 % Neutrophils # (Auto) 4.2 1.6-8.6 10 ^3/uL Lymphocytes # (Auto) 0.2 L 0.4-5.4 10 ^3/uL Monocytes # (Auto) 0.3 0-1.3 10 ^3/uL Eosinophils # (Auto) 0 0-0.8 10 ^3/uL Basophils # (Auto) 0 0-0.2 10 ^3/uL Nucleated Red Blood Cells 0.4 % Prothrombin Time 47.8 H 9.3-11.8 sec Prothrombin Time INR 5.32 *H 0.9-1.15 Activated Partial Thromboplast Time 57.5 H 24.5-34.5 SEC Blood Gas Specimen Type Arterial Blood Gas Sample Site Right radial Blood Gas Patient Temperature 37.0 Arterial Blood Date Drawn [id number] Arterial Blood pH 7.433 7.350-7.450 Arterial Blood Partial Pressure CO2 19.2 *L 35.0-48.0 mmHg Arterial Blood Partial Pressure O2 102.5 83.0-108.0 mmHg Arterial Blood HCO3 12.5 L 21.0-28.0 mmol/L Arterial Blood Oxygen Saturation 97.6 94.0-98.0 % Arterial Blood Base Excess -9.3 L -2.0-3.0 mmol/L Arterial Blood Oxyhemoglobin 96.4 94.0-98.0 % Arterial Blood Carboxyhemoglobin 0.7 0.5-1.5 % Arterial Blood Methemoglobin 0.5 0.0-1.5 % Vinny Test Yes Blood Gas Total Hemoglobin 13.10 L 13.5-17.5 g/dL Blood Gas Liter Flow 3.00 Blood Gas Modality Nasal cannula Blood Gas Spontaneous Rate 28 FiO2 % 32.0 Specimen Drawn By Deisy madden rt Blood Gas Critical Value Read Back Yes Blood Gas Notified Whom aparna Breaux md Blood Gas Notified Time [id number] Blood Gas Notified By Deisy madden rt Test 08/06/24 21:07 08/06/24 19:37 08/06/24 18:15 Range/Units Sodium Level 141 144 136-145 mmol/L Potassium Level 4.8 5.0 3.5-5.1 mmol/L Chloride Level 107 105 98-107 mmol/L Carbon Dioxide Level 12 L 16 L 20-31 mmol/L Anion Gap 22 H 23 H 5-15 Blood Urea Nitrogen 50 #H 62 H 9-23 mg/dL Creatinine 4.01 H 4.03 H 0.700-1.30 mg/dL Glomerular Filtration Rate Calc 15 15 >90 mL/min BUN/Creatinine Ratio 12.5 15.4 10.0-20.0 Serum Glucose 102 109 H 74-106 mg/dL Calcium Level 9.3 9.5 8.7-10.4 mg/dL Magnesium Level 2.7 H 1.6-2.6 mg/dL Total Bilirubin 3.6 H 0.2-1.0 mg/dL Direct Bilirubin 2.8 H <0.3 mg/dL Aspartate Amino Transferase (AST) 143 H <34 U/L Alanine Aminotransferase (ALT) 77 H 7-40 U/L Alkaline Phosphatase 1240 H 46-116 U/L Troponin I High Sensitivity 25 21 17 </=54 ng/L Total Protein 5.1 L 5.7-8.2 g/dL Albumin 3.0 L 3.2-4.8 g/dL White Blood Count 3.8 L 4.4-10.8 10^3/uL Red Blood Count 4.41 L 4.5-5.90 10^6/uL Hemoglobin 13.6 13.5-17.5 g/dL Hematocrit 41.2 41.0-53.0 % Mean Corpuscular Volume 93.4 80.0-100.0 fL Mean Corpuscular Hemoglobin 30.8 28.0-32.0 pg Mean Corpuscular Hemoglobin Concent 33.0 32.0-36.0 g/dL Red Cell Distribution Width 22.5 H 11.8-14.3 % Platelet Count 247 140-450 10^3/uL Mean Platelet Volume 9.4 6.9-10.8 fL Neutrophils (%) (Auto) 78.0 37.0-80.0 % Lymphocytes (%) (Auto) 13.4 10.0-50.0 % Monocytes (%) (Auto) 8.4 0.0-12.0 % Eosinophils (%) (Auto) 0.1 0.0-7.0 % Basophils (%) (Auto) 0.1 0.0-2.0 % Neutrophils # (Auto) 3.0 1.6-8.6 10 ^3/uL Lymphocytes # (Auto) 0.5 0.4-5.4 10 ^3/uL Monocytes # (Auto) 0.3 0-1.3 10 ^3/uL Eosinophils # (Auto) 0 0-0.8 10 ^3/uL Basophils # (Auto) 0 0-0.2 10 ^3/uL Nucleated Red Blood Cells 1.1 % Prothrombin Time 35.6 H 9.3-11.8 sec Prothrombin Time INR 3.84 H 0.9-1.15 Activated Partial Thromboplast Time 52.1 H 24.5-34.5 SEC Hemoglobin A1c 4.7 <5.7 % A1C B-Type Natriuretic Peptide 50.58 0-100 pg/mL Vitamin B12 Level 1589 H 211-911 pg/mL Folic Acid 14.61 >5.38 ng/mL Thyroid Stimulating Hormone (TSH) 7.08 H 0.55-4.78 uIU/mL Assessment Acute kidney injury superimposed imposed on Chronic Kidney Disease secondary urinary retention COPD exacerbation AFib Metabolic acidosis Jaundice Transaminitis Anemia of chronic kidney disease Recommendations Closely monitor fluid and electrolytes Avoid nephrotoxic medications [place] catheter Strict I&Os Check urinalysis urine electrolytes and protein excretion Check kidney ultrasound Check hep B and hep C virus IVF 1/2 NS with 50 mEq/L sodium bicarb at 100 cc/hour IV steroids IV antibiotics We will Continue to follow Patient seen and examined by myself in the day OU. I discussed my plan of care with the patient and primary nurse at the bedside I would like to thank Dr. Garcia for the consult, will follow up Plan discussed with: Patient KISHA DUBOIS MD Aug 07, 2024 11:11
[2024-08-07 11:39] LABS: Magnesium 2.4 mg/dL (1.6-2.6)
[2024-08-07 11:44] LABS: Phosphorus 7.2 mg/dL (2.4-5.1)
[2024-08-07 11:52] LABS: Urine Bacteria FEW /hpf (None Seen); Urine Blood TRACE /uL (Negative); Urine Clarity Turbid (Clear); Urine Color Dark-Yellow (Yellow); Urine Protein, UAD 1+ (Negative); Urine Squamous Epithelial Cell FEW /hpf (<5); Urine Urobilinogen 4 mg/dL (Negative); Urine WBC 12 /HPF (0-3)
--- NOTE | 2024-08-07 12:05 | DVHCONRES ---
Date Seen: Aug 07, 2024 Resident Creating Document: GRACE LUGO Jr., MD Referring Physician er Reason for Consultation A retroperitoneal hematoma History of Present Illness 73-year-old Male with past medical history of COPD, hypertension, AFib, questionable CHF, questionable CKD presented with complaints of syncopal episode that heparin 4 hours before presented to the. Patient was seen by his daughter to be passing out and as per the patient he passed out for 10 minutes. Patient also mentioned that has been having shortness of breath at the same time it was associated with cough, nausea, vomiting and chills. On presented to the ED patient was found to be tachypneic and tachycardiac. Patient was seen and examined bedside. Patient was currently on room air. He is mentioning of generalized weakness and we will dizziness but not mentioning of any shortness of breath, cough, chest pain, nausea, vomiting, abdominal pain. 60 scan demonstrated a retroperitoneal hematoma measuring 10 cm patient is complaining of minimal flank pain. Past Medical History COPD, hypertension, AFib, questionable CHF, questionable CKD Family History: FH: cancer G8 MOTHER Social History Nonsmoker and nondrinker Allergies: Coded Allergies: NO KNOWN ALLERGIES (Unverified , 08/06/24) Current Medications Current Medications Medications (Trade) Dose Ordered Sig/Mary Route PRN Reason Start Time Stop Time Status Last Admin Piperacillin Sod/ Tazobactam Sod 100 ml @ 25 mls/hr Q12HR IV 08/07/24 10:00 08/07/24 08:48 DC 08/07/24 06:37 Albuterol (Ventolin Medneb) 2.5 mg Q4HPRN PRN NEB SHORTNESS OF BREATH 08/06/24 21:15 08/07/24 07:39 Ipratropium [place] (Atrovent Medneb) 0.5 mg Q4HPRN PRN NEB SHORTNESS OF BREATH 08/06/24 21:15 08/07/24 07:39 Linezolid 300 ml @ 150 mls/hr Q12HR IV 08/06/24 22:00 08/07/24 10:43 Acetaminophen (Tylenol Tablet Or Capsule) 500 mg Q8HP PRN PO MILD PAIN (1-3 PAIN SCALE) 08/06/24 21:30 Heparin Sodium/ Dextrose 250 ml @ 11 mls/hr [id number] IV 08/06/24 22:15 08/07/24 02:34 DC 08/07/24 02:08 Norepinephrine Bitartrate 250 ml @ 3.75 mls/hr Q24H IV 08/06/24 23:15 08/07/24 00:00 Piperacillin Sod/ Tazobactam Sod 100 ml @ 25 mls/hr Q12H IV 08/07/24 18:00 Sodium Bicarbonate 75 ml/ Sodium Chloride 1,075 ml @ 100 mls/hr [id number] IV 08/07/24 11:15 UNV Review of Systems All systems reviewed otherwise negative other than what is in HPI. Vital Signs Vital Signs Date Time Temp Pulse Resp B/P (MAP) Pulse Ox O2 Delivery O2 Flow Rate FiO2 08/07/24 07:50 80 20 100 08/07/24 07:47 Nasal Cannula* 2 28 08/07/24 07:30 101/65 (77) 08/07/24 04:25 96.6 96.6 Physical Exam Head eyes ears nose and throat exam eyes nonicteric conjunctiva is pink neck was supple no JVD no lymphadenopathy no carotid bruits. Lungs are clear to auscultation heart was regular rate and rhythm abdomen is soft nontender he has not ecchymosis in the right flank. Palpable femoral and pedal pulses bilaterally. Labs/Diagnostic Data Labs Test 08/07/24 11:15 08/07/24 07:29 08/07/24 04:42 08/07/24 03:03 Range/Units Urine Color Dark-yellow Yellow Urine Clarity Turbid H Clear Urine pH 5.0 5.0-9.0 Urine Specific [place] 1.020 1.001-1.035 Urine Protein 1+ H Negative Urine Ketones 1+ H Negative Urine Blood Trace H Negative /uL Urine Nitrite Negative Negative Urine Bilirubin 1+ Negative Urine Urobilinogen 4 H Negative mg/dL Urine Leukocyte Esterase Negative Negative /uL Urine RBC 5 0 - 3 /hpf Urine Microscopic WBC 12 H 0-3 /HPF Urine Squamous Epithelial Cells Few <5 /hpf Urine Bacteria Few H None Seen /hpf Urine Glucose 1+ H Normal mg/dL Lactic Acid Level 8.6 *H 0.4-2.0 mmol/L White Blood Count 6.7 # 4.4-10.8 10^3/uL Red Blood Count 3.83 L 4.5-5.90 10^6/uL Hemoglobin 11.9 L 13.5-17.5 g/dL Hematocrit 36.0 L 41.0-53.0 % Mean Corpuscular Volume 94.1 80.0-100.0 fL Mean Corpuscular Hemoglobin 31.1 28.0-32.0 pg Mean Corpuscular Hemoglobin Concent 33.1 32.0-36.0 g/dL Red Cell Distribution Width 22.4 H 11.8-14.3 % Platelet Count 259 140-450 10^3/uL Mean Platelet Volume 9.4 6.9-10.8 fL Neutrophils (%) (Auto) 37.0-80.0 % Lymphocytes (%) (Auto) 10.0-50.0 % Monocytes (%) (Auto) 0.0-12.0 % Basophils (%) (Auto) 0.0-2.0 % Neutrophils # (Auto) 1.6-8.6 10 ^3/uL Lymphocytes # (Auto) 0.4-5.4 10 ^3/uL Monocytes # (Auto) 0-1.3 10 ^3/uL Differential Total Cells Counted 100.0 100 Neutrophils % (Manual) 95 H 37.0-80.0 Band Neutrophils % (Manual) 2 Lymphocytes % (Manual) 1 L 10.0-50.0 Monocytes % (Manual) 2 0-12 Eosinophils % (Manual) 0 0-7 Basophils % (Manual) 0 0.0-2.0 Metamyelocytes % (manual) 0 Myelocytes % (Manual) 0 Promyelocytes % (Manual) 0 Blast Cells % (Manual) 0 Reactive Lymphocytes 0 Platelet Estimate Adequate Clumped Platelets Few Large Platelets Few Sodium Level 143 136-145 mmol/L Potassium Level 4.4 3.5-5.1 mmol/L Chloride Level 106 98-107 mmol/L Carbon Dioxide Level 11 L 20-31 mmol/L Anion Gap 26 H 5-15 Blood Urea Nitrogen 64 #H 9-23 mg/dL Creatinine 4.54 H 0.700-1.30 mg/dL Glomerular Filtration Rate Calc 13 >90 mL/min BUN/Creatinine Ratio 14.1 10.0-20.0 Serum Glucose 232 #H 74-106 mg/dL Calcium Level 7.9 L 8.7-10.4 mg/dL Phosphorus Level 7.2 H 2.4-5.1 mg/dL Magnesium Level 2.4 1.6-2.6 mg/dL Carcinoembryonic Antigen 2.73 <=5.0 ng/mL Vitamin D 25-Hydroxy 32.0 30.0-100 ng/mL Parathyroid Hormone (Intact) 256.2 H 18.4-80.1 pg/mL Influenza Type A Antigen Negative Negative Influenza Type B Antigen Negative Negative SARS-CoV-2 Antigen (Rapid) Negative NEGATIVE Test 08/07/24 00:35 08/06/24 22:49 08/06/24 21:45 08/06/24 21:07 Range/Units Troponin I High Sensitivity 28 </=54 ng/L Eosinophils (%) (Auto) 0.1 0.0-7.0 % Eosinophils # (Auto) 0 0-0.8 10 ^3/uL Basophils # (Auto) 0 0-0.2 10 ^3/uL Nucleated Red Blood Cells 0.4 % Prothrombin Time 47.8 H 9.3-11.8 sec Prothrombin Time INR 5.32 *H 0.9-1.15 Activated Partial Thromboplast Time 57.5 H 24.5-34.5 SEC Blood Gas Specimen Type Arterial Blood Gas Sample Site Right radial Blood Gas Patient Temperature 37.0 Arterial Blood Date Drawn [id number] Arterial Blood pH 7.433 7.350-7.450 Arterial Blood Partial Pressure CO2 19.2 *L 35.0-48.0 mmHg Arterial Blood Partial Pressure O2 102.5 83.0-108.0 mmHg Arterial Blood HCO3 12.5 L 21.0-28.0 mmol/L Arterial Blood Oxygen Saturation 97.6 94.0-98.0 % Arterial Blood Base Excess -9.3 L -2.0-3.0 mmol/L Arterial Blood Oxyhemoglobin 96.4 94.0-98.0 % Arterial Blood Carboxyhemoglobin 0.7 0.5-1.5 % Arterial Blood Methemoglobin 0.5 0.0-1.5 % Vinny Test Yes Blood Gas Total Hemoglobin 13.10 L 13.5-17.5 g/dL Blood Gas Liter Flow 3.00 Blood Gas Modality Nasal cannula Blood Gas Spontaneous Rate 28 FiO2 % 32.0 Specimen Drawn By Deisy tirado Blood Gas Critical Value Read Back Yes Blood Gas Notified Whom aparna Breaux md Blood Gas Notified Time [id number] Blood Gas Notified By L madden rt Total Bilirubin 3.6 H 0.2-1.0 mg/dL Direct Bilirubin 2.8 H <0.3 mg/dL Aspartate Amino Transferase (AST) 143 H <34 U/L Alanine Aminotransferase (ALT) 77 H 7-40 U/L Alkaline Phosphatase 1240 H 46-116 U/L Total Protein 5.1 L 5.7-8.2 g/dL Albumin 3.0 L 3.2-4.8 g/dL Test 08/06/24 18:15 Range/Units Hemoglobin A1c 4.7 <5.7 % A1C B-Type Natriuretic Peptide 50.58 0-100 pg/mL Vitamin B12 Level 1589 H 211-911 pg/mL Folic Acid 14.61 >5.38 ng/mL Thyroid Stimulating Hormone (TSH) 7.08 H 0.55-4.78 uIU/mL EXAM: CT CT AB PEL WO CON-NO ORAL OR IV HISTORY: lung nodules COMPARISON: CT scan of the chest dated 08/06/2024. TECHNIQUE: Helical CT images of the abdomen and pelvis were performed without IV contrast. Sagittal and coronal reformatted images were obtained. This CT exam was performed using one or more of the following dose reduction techniques: Automated exposure control, adjustment of the mA and/or kv according to patient size, or the use of iterative reconstruction techniques. Radiation Dose: Abdomen/Pelvis: CTDIvol 12.55 mGy, DLP 641.71 mGy*cm. FINDINGS: CT abdomen: There small bilateral pleural effusions, larger on the right. There are interstitial opacities in the bilateral lung bases. There is peribronchial thickening and mucous plugging, greatest in the right lower lobe. Emphysematous changes are better characterized on prior CT scan of the chest. The heart is not enlarged. There are coronary artery calcifications. There is a small pericardial effusion. The liver measures 20 cm longitudinal. The noncontrast spleen, gallbladder, pancreas, kidneys, and adrenal glands are unremarkable. No abdominal aortic aneurysm. There are atherosclerotic calcifications of the abdominal aorta and major branches. There is a retroperitoneal hemorrhage measuring 10 cm longitudinal x 4.6 cm transverse x 3.8 cm AP (images 33-49, series 2; images 64-74, series 601). There is likely also mild intramuscular hemorrhage involving the right iliacus muscle (image 56, series 2). CT pelvis: No abnormal bowel dilatation or free air. There is low volume free fluid in the pelvis. The appendix is not visualized, and there is no specific evidence of acute appendicitis. There is moderate osteoarthritis of the hips. There is moderate to severe lumbar degenerative disc disease and facet arthropa thy. There are thoracolumbar and lumbosacral transitional vertebrae. IMPRESSION: 1. Emphysema and reactive airways disease in the lung bases, with mucous plugging in the right lower lobe. 2. Small bilateral pleural effusions, [id number]-[id number]-left, stable since the previous day. 3. Coronary artery disease and atherosclerotic vascular disease in the abdomen and pelvis. 4. Right retroperitoneal hemorrhage measures up to 10 cm longitudinal. There is also likely right iliacus intramuscular hemorrhage. 5. Moderate to severe degenerative changes in the lumbar spine. 6. No evidence of bowel obstruction or other acute process in the abdomen or pelvis. Assessment Right retroperitoneal hematoma Hold anticoagulation Monitor exam No surgical intervention at this time. Plan discussed with: Patient GRACE LUGO Jr., MD Aug 07, 2024 12:05
--- NOTE | 2024-08-07 13:54 | DVH ---
INDICATION: neeraj TECHNIQUE: Multiple real-time sonographic images of the kidneys and bladder were obtained. COMPARISON: None FINDINGS: The right kidney measures 9.0 cm in length, which is normal in size. There is normal echoge nicity of the right kidney. No hydronephrosis. The left kidney measures 10.5 cm in length, which is normal in size. There is normal echogenicity of the left kidney. No hydronephrosis. Urinary bladder is decompressed with [place] catheter. Incidentally seen trace bilateral pleural effusi ons. IMPRESSION: 1. Normal sonographic appearance of the kidneys. No hydronephrosis.
[2024-08-07 14:20] LABS: Protein, Urine 115.9 mg/dL (1-14)
[2024-08-07 14:22] LABS: Creatinine, Urine 152.15 mg/dL (30.0-125.0); Urine Protein/Creatinine Ratio 0.76
[2024-08-07] MEDS: SODIUM BICARB 50mEq/50ml Vial 75 ML in SOD CHL 0.45% 1,000 ML IV SCH (15:05)
--- NOTE | 2024-08-07 15:50 | DVHPNRES ---
Progress Note Date Seen: Aug 07, 2024 Resident Creating Document: NANI NESBITT RESIDENT Has the PT tested + for MRSA If YES, has PT been informed?: No Medical Necessity Reason Pt with a Central, PICC or Fol: No The following are medically ne: Central Line Medical Necessity Reason Patient is a 73-year-old Male with past medical history of COPD, hypertension, AFib, questionable CHF, questionable CKD presented with complaints of syncopal episode that happened 4 hours prior to presentation. According to the patient, he passed out whilst returning from the bathroom. Denies any chest pain, palpitations,dizziness prior to passing out. Per patient, he passed out for about 10 minutes. He lives with his sister who saw him and called the ambulance to bring him to the hospital. Patient also mentioned that has been having .9, T. simon: 3.6, TSH: 7.08. Right basilar atelectasis/ pneumonia with mild pulmonary vascular congestion / senescent changes. Kidney US Normal sonographic appearance of the kidneys. No hydronephrosis. CT abdomen: Right retroperitoneal hemorrhage measures up to 10 cm longitudinal.There is also likely right iliacus intramuscular hemorrhage. Moderate to severe degenerative changes in the lumbar spine. Subjective Review of Systems Constitutional: Denies fever no chills no feeling of malaise HEENT: Denies headache, ear pain, ear discharges, conjunctivitis, nasal discharge throat pain Cardiovascular: Denies chest pain, palpitation, orthopnea, PND, or pedal edema Respiratory: Denies shortness of breath, cough cough, sputum production, hemoptysis, GI: Denies abdominal pain, nausea, vomiting, diarrhea, hematemesis, hematochezia, : Denies frequency, urgency, hematuria, Endocrine: Denies unintentional weight gain or weight loss, feeling of hot flashes, Eugenio: Denies easy bruising, bleeding disorders, epistaxis Musculoskeletal: Denies joint pains, muscle aches Psych: No evidence of depression, bob, suicidal ideation Objective vital signs Vital Sign Date Time Temp Pulse Resp B/P (MAP) Pulse Ox O2 Delivery O2 Flow Rate FiO2 08/07/24 14:00 89 30 98/65 (76) 99 08/07/24 14:00 Nasal Cannula* 2 28 08/07/24 11:45 97.0 206.6 Total Intake and Output 08/06/24 08/06/24 08/07/24 15:00 23:00 07:00 Intake Total 1030.00 ml Output Total 0 ml Balance 1030.00 ml medications Current Medications Medications Dose Ordered Sig/Mary Route Start Time Stop Time Status Last Admin Dose Admin Albuterol 2.5 mg Q4HPRN PRN NEB 08/06/24 21:15 08/07/24 07:39 2.5 MG Ipratropium [place] 0.5 mg Q4HPRN PRN NEB 08/06/24 21:15 08/07/24 07:39 0.5 MG Linezolid 300 ml @ 150 mls/hr Q12HR IV 08/06/24 22:00 08/07/24 10:43 150 MLS/HR Acetaminophen 500 mg Q8HP PRN PO 08/06/24 21:30 Norepinephrine Bitartrate 250 ml @ 3.75 mls/hr Q24H IV 08/06/24 23:15 08/07/24 00:00 3.75 MLS/HR Piperacillin Sod/ Tazobactam Sod 100 ml @ 25 mls/hr Q12H IV 08/07/24 18:00 Sodium Bicarbonate 75 ml/ Sodium Chloride 1,075 ml @ 100 mls/hr [id number] IV 08/07/24 11:15 08/07/24 15:05 100 MLS/HR Examination General Appearance: Alert, Oriented X3, Cooperative, No acute distress HEENT: Atraumatic, PERRLA, EOMI, Mucous membrane moist/pink Respiratory: Clear to auscultation, Normal air movement Cardiovascular: Regular rate, Normal S1, Normal S2, No murmurs, no chest wall tenderness Abdominal: RIGHT right flank pain, Extremities: No clubbing, No cyanosis, No edema, Normal pulses, No tenderness/swelling Skin: No rashes, No breakdown, No significant lesion Neuro: Normal gait, Normal speech, Strength at 5/5 X4 ext, Normal tone, Sensation intact, Cranial nerves 3-12 NL, Reflexes 2+ Psych/Mental Status: Mental status NL, Mood NL laboratory and microbiology Laboratory Tests 08/07/24 04:42 Test 08/07/24 04:42 Range/Units Serum Glucose 232 #H 74-106 mg/dL Microbiology Date/Time Source Procedure Growth Status 08/07/24 03:03 Nose MRSA Screen - Final Complete Problem List/Assessment/Plan Problem List/Assessment/Plan Assessment and plan Neurology: syncope -echo pending - tsh b12 fdolate - head CT: No acute intracranial abnormality. Cardiovascular: Chronic HFpEF, ?acute exacerbation Afib, now sinus tachycardia Hypotension -currently in shock, on levophed 2mcg/hr hold anticoagulation, retroperitoneal hemorrhage on imaging -echo Respiratory: Acute hypoxic resp failure due to sepsis, ?aspiration pneumonia Multiple pulmonary nodules Mediastinal lymphadenopathy, left paratracheal lymph node measuring up to 1.5 cm ( CT) Small right pleural effusion possible exudative ? parapneumonic effusion ?transudative COPD - PRN albuterol and ipratropium - CT : Multiple pulmonary nodules (at least 8) are seen throughout both lungs, the largest measuring up to 10 mm in the left upper lobe. Recommend PET-CT for further evaluation. - currently on room air - CT chest shows No focal pneumonia. - consider thoracentesis Gastrointestinal : Retroperitoneal hemorrhage measures up to 10 cm longitudinal. right iliacus intramuscular hemorrhage. ( SEEN ON CT ) Coagulopathy due to ?sepsis Possible liver cirrohsis anticoagulation therapy Jaundice Transaminitis Gi consult Monitor hemoglobin Genitourinary: FILIPPO on CKD likely due to vasomotor nephropathy due to sepsis Anemia of chronic kidney disease -iV fluids - urine studies pending Infectious Disease Shock likely hypovolemic shock/septic shock Severe Sepsis with septic shock likely due to ?aspiration pneumonia, other sources not identified yet Lactic acid:8.6 Metabolic acidosis IV fluids followed by norepinephrine drip, 2mcg/hr -IV fluids, small boluses (history of CHF) -IV antibiotics -cultures IV access : Peripheral lines Critical care time excluding procedures >45 min Code status discussed with the patient for 21 min, FULL CODE advance care discussed with patient and nurse Case and plan discussed with Plan discussed with: Patient My Orders My Orders Orders - NANI NESBITT Procedure Category Date Status Time Full Liq Diet DIET 08/07/24 Transmitted Lunch Dietary Evaluation Review Comments: 1) Advance to renal specific 40gm 2) Monitor wt trend, lab values, PO intake Expected Outcomes/Goals: To meet >75% estimated needs Fu 3-5 days Date of Service: Aug 07, 2024 Billing Provider: JOSE MELENDEZ MD Common Visit Codes: NOT BILLABLE NANI NESBITT Aug 07, 2024 15:50 JOSE MELENDEZ MD Aug 13, 2024 17:58
[2024-08-08] VITALS (102 sets, daily range): BP systolic 76–166; BP diastolic 22–89; PULSE 79–148; RESP 11–34; TEMP 96.1–99.2; O2SAT 91–100
[2024-08-08] MEDS: ONDANSETRON HCL 4 MG/2 ML VIAL IV PRN (08:08)
[2024-08-08 09:39] LABS: Hemoglobin 10.8 g/dL (13.5-17.5); Mean Corpuscular Hemoglobin 30.9 pg (28.0-32.0); Mean Corpuscular Hgb Conc. 33.8 g/dL (32.0-36.0); Mean Corpuscular Volume 91.6 fL (80.0-100.0); Platelet Count (auto) 227 10^3/uL (140-450); Red Cell Distribution Width 22.7 % (11.8-14.3); White Blood Cell 12.4 10^3/uL (4.4-10.8)
[2024-08-08 09:45] LABS: Chloride 106 mmol/L (98-107); Potassium 3.8 mmol/L (3.5-5.1); Sodium 143 mmol/L (136-145)
[2024-08-08 09:46] LABS: Anion Gap 17 (5-15); Calcium 8.4 mg/dL (8.7-10.4); Carbon Dioxide 20 mmol/L (20-31)
[2024-08-08 09:47] LABS: Band Neutrophils % (manual) 0; Basophils % (manual) 0 (0.0-2.0); Blast Cells 0; Eosinophils % (manual) 0 (0-7); Myelocytes % 0; Promyelocytes % 0; Reactive Lymphocytes 0
[2024-08-08 09:51] LABS: BUN/Creatinine Ratio 14.3 (10.0-20.0); Blood Urea Nitrogen 72 mg/dL (9-23); Glucose 123 mg/dL (74-106)
[2024-08-08 09:52] LABS: Lactic Acid w/Reflex 4.1 mmol/L (0.4-2.0)
[2024-08-08 10:37] LABS: Anisocytosis Slight; Lymphocytes % (manual) 2 (10.0-50.0); Metamyelocytes % 1; Monocytes % (manual) 7 (0-12); Platelet Estimate Adequate
--- NOTE | 2024-08-08 10:40 | DVHPN2 ---
Progress Note Date Seen: Aug 08, 2024 Has the PT tested + for MRSA If YES, has PT been informed?: No Medical Necessity Reason Pt with a Central, PICC or Fol: No The following are medically ne: Central Line Subjective Other Systems: Patient seen and examined by myself today in follow-up Objective vital signs Vital Sign Date Time Temp Pulse Resp B/P (MAP) Pulse Ox O2 Delivery O2 Flow Rate FiO2 08/08/24 09:07 96 Room Air 0.0 08/08/24 09:07 21 08/08/24 08:00 26 08/08/24 08:00 87 08/08/24 08:00 98.4 117/70 (86) 98.4 Total Intake and Output 08/07/24 08/07/24 08/08/24 15:00 23:00 07:00 Intake Total 426.25 ml 1283.75 ml 1098.75 ml Output Total 100 ml 150 ml Balance 426.25 ml 1183.75 ml 948.75 ml medications Current Medications Medications Dose Ordered Sig/Mary Route Start Time Stop Time Status Last Admin Dose Admin Albuterol 2.5 mg Q4HPRN PRN NEB 08/06/24 21:15 08/07/24 22:54 2.5 MG Ipratropium [place] 0.5 mg Q4HPRN PRN NEB 08/06/24 21:15 08/07/24 07:39 0.5 MG Linezolid 300 ml @ 150 mls/hr Q12HR IV 08/06/24 22:00 08/08/24 00:01 150 MLS/HR Acetaminophen 500 mg Q8HP PRN PO 08/06/24 21:30 Norepinephrine Bitartrate 250 ml @ 3.75 mls/hr Q24H IV 08/06/24 23:15 08/07/24 00:00 3.75 MLS/HR Piperacillin Sod/ Tazobactam Sod 100 ml @ 25 mls/hr Q12H IV 08/07/24 18:00 08/08/24 07:03 25 MLS/HR Ondansetron HCl 4 mg Q4HPRN PRN IV 08/08/24 06:00 08/08/24 08:08 4 MG Sodium Bicarbonate 75 ml/ Sodium Chloride 1,075 ml @ 120 mls/hr Q8H58M IV 08/08/24 10:45 UNV Dopamine HCl/ Dextrose 250 ml @ 5.205 mls/ hr Q24H IV 08/08/24 10:45 UNV Examination: LUNGS:Normal, CVS:Normal, MSK:Normal laboratory and microbiology Laboratory Tests 08/08/24 09:23 Test 08/08/24 09:23 Range/Units Serum Glucose 123 #H 74-106 mg/dL Microbiology Date/Time Source Procedure Growth Status 08/07/24 03:03 Nose MRSA Screen - Final Complete 08/06/24 21:51 Blood Blood Culture - Preliminary NO GROWTH AFTER 24 HOURS OF INCUBATION. Resulted Problem List/Assessment/Plan Problem List/Assessment/Plan Acute kidney injury superimposed imposed on Chronic Kidney Disease secondary vasomotor nephropathy, FeNa <1% COPD exacerbation AFib Metabolic acidosis Jaundice Transaminitis Retroperitoneal hemorrhage Anemia of chronic kidney disease Recommendations Kidney function slightly worsened today Patient remained oliguric [place] catheter Strict I&Os kidney ultrasound reported within normal limit Check hep B and hep C virus IVF 1/2 NS with 50 mEq/L sodium bicarb at 120 cc/hour Low-dose dopamine IV steroids IV antibiotics We will monitor closely and assess for hemodialysis on a daily basis Plan discussed with: Patient My Orders My Orders Orders - KISHA DUBOIS MD Procedure Category Date Status Time Insert [place] Catheter JOSE 08/07/24 In Process 11:02 Kidney US 08/07/24 Resulted 11:02 Hepatitis C Antibody LAB 08/07/24 In Process 11:02 Hepatitis B Surface LAB 08/07/24 In Process Antigen 11:02 Sod Chl 0.45% PHA 08/08/24 Logged (Sodi... W/Sodium 10:45 Dopamine 1600mcg/Ml PHA 08/08/24 Logged D5W 10:45 Dietary Evaluation Review Comments: 1) Advance to renal specific 40gm 2) Monitor wt trend, lab values, PO intake Expected Outcomes/Goals: To meet >75% estimated needs Fu 3-5 days KISHA DUBOIS MD Aug 08, 2024 10:40
[2024-08-08 11:06] LABS: Hepatitis B Surface Antigen Negative (Negative); Hepatitis C Antibody Negative (Negative)
[2024-08-08] MEDS: DOPamine 1600MCG/ML D5W 250 ML IV SCH (12:15)
[2024-08-08 12:28] LABS: INR 1.94 (0.9-1.15); Prothrombin Time 19.3 sec (9.3-11.8)
--- NOTE | 2024-08-08 15:33 | DVHPNRES ---
Progress Note Date Seen: Aug 08, 2024 Resident Creating Document: NANI NESBITT RESIDENT Has the PT tested + for MRSA If YES, has PT been informed?: No Medical Necessity Reason Pt with a Central, PICC or Fol: No The following are medically ne: Central Line Medical Necessity Reason Patient seen examined today. He is not in any acute distress. Temperature has been running a little low 96.1-->97.1. His CA 19-9 is 308 (H) and lactic acid is trending downward. BP pressure was good today whilst on Levophed 2mcg/min. He made only a total of 250 urine in 24hrs. His Urine sodium is 22 and Urine creatinine 152. Per the nephrology is on the case. He will add dopamine to help with the urine output. CXR Pulmonary vascular congestion. Pulmonary nodules better seen on prior CT. CT abdomen showed noncontrast spleen, gallbladder, pancreas, kidneys, and adrenal glands are unremarkable. Patient didnt tolerate the dopamine. it took him to AFIB rvr. it was discontinued. His creatinines are going up.He may need dilaysis. has a central line today Subjective Review of Systems Constitutional: Denies fever no chills no feeling of malaise, but has not appetite HEENT: Denies headache, ear pain, ear discharges, conjunctivitis, nasal discharge throat pain Cardiovascular: irregularly irregular rhythm, palpitation, orthopnea, PND, or pedal edema Respiratory: Denies shortness of breath, cough cough, sputum production, hemoptysis, GI: Denies abdominal pain, nausea, vomiting, diarrhea, hematemesis, hematochezia, : Denies frequency, urgency, hematuria, Endocrine: Denies unintentional weight gain or weight loss, feeling of hot flashes, Eugenio: Denies easy bruising, bleeding disorders, epistaxis Musculoskeletal: Denies joint pains, muscle aches Psych: No evidence of depression, bob, suicidal ideation Objective vital signs Vital Sign Date Time Temp Pulse Resp B/P (MAP) Pulse Ox O2 Delivery O2 Flow Rate FiO2 08/08/24 12:45 87 17 119/71 (87) 94 08/08/24 12:00 96.1 96.1 08/08/24 11:41 Room Air* 0 21 Total Intake and Output 08/07/24 08/07/24 08/08/24 15:00 23:00 07:00 Intake Total 426.25 ml 1283.75 ml 1098.75 ml Output Total 100 ml 150 ml Balance 426.25 ml 1183.75 ml 948.75 ml medications Current Medications Medications Dose Ordered Sig/Mary Route Start Time Stop Time Status Last Admin Dose Admin Albuterol 2.5 mg Q4HPRN PRN NEB 08/06/24 21:15 08/07/24 22:54 2.5 MG Ipratropium [place] 0.5 mg Q4HPRN PRN NEB 08/06/24 21:15 08/07/24 07:39 0.5 MG Linezolid 300 ml @ 150 mls/hr Q12HR IV 08/06/24 22:00 08/08/24 00:01 150 MLS/HR Acetaminophen 500 mg Q8HP PRN PO 08/06/24 21:30 Norepinephrine Bitartrate 250 ml @ 3.75 mls/hr Q24H IV 08/06/24 23:15 08/07/24 00:00 3.75 MLS/HR Piperacillin Sod/ Tazobactam Sod 100 ml @ 25 mls/hr Q12H IV 08/07/24 18:00 08/08/24 07:03 25 MLS/HR Ondansetron HCl 4 mg Q4HPRN PRN IV 08/08/24 06:00 08/08/24 08:08 4 MG Sodium Bicarbonate 75 ml/ Sodium Chloride 1,075 ml @ 120 mls/hr Q8H58M IV 08/08/24 10:45 Dopamine HCl/ Dextrose 250 ml @ 5.205 mls/ hr Q24H IV 08/08/24 10:45 08/08/24 12:15 5.205 MLS/HR Midodrine 10 mg TID@0600,1200,1800 PO 08/08/24 12:00 Examination General Appearance: Alert, Oriented X3, Cooperative, No acute distress, jaundice HEENT: Atraumatic, icteric sclera, Mucous membrane moist/pink, poor oral dentition Respiratory: Clear to auscultation, Normal air movement Cardiovascular: Regular rate, Normal S1, Normal S2, No murmurs, no chest wall tenderness Abdominal: RIGHT right flank pain, ecchymosis; mildly elevated liver Extremities: No clubbing, No cyanosis, No edema, Normal pulses, No tenderness/swelling Skin: jaundiced, Neuro: weak unable to stand on his toes Psych/Mental Status: Mental status NL, Mood NL laboratory and microbiology Laboratory Tests 08/08/24 09:23 Test 08/08/24 09:23 Range/Units Serum Glucose 123 #H 74-106 mg/dL Microbiology Date/Time Source Procedure Growth Status 08/07/24 03:03 Nose MRSA Screen - Final Complete 08/06/24 21:51 Blood Blood Culture - Preliminary NO GROWTH AFTER 24 HOURS OF INCUBATION. Resulted Problem List/Assessment/Plan Problem List/Assessment/Plan Assessment and plan Neurology: syncope -echo pending - tsh b12 fdolate - head CT: No acute intracranial abnormality. Cardiovascular: Chronic HFpEF, ?acute exacerbation Afib RVR today 08/08/2024 Hypotension -currently in shock, on levophed 2mcg/hr hold because of AFIB RVR- started amiodarone -Need Central line for all medications and possible -hold anticoagulation, retroperitoneal hemorrhage on imaging -echo Respiratory: Acute hypoxic resp failure due to sepsis, ?aspiration pneumonia Multiple pulmonary nodules Mediastinal lymphadenopathy, left paratracheal lymph node measuring up to 1.5 cm ( CT) Small right pleural effusion possible exudative ? parapneumonic effusion ?transudative COPD - PRN levalbuterol and ipratropium - CT : Multiple pulmonary nodules (at least 8) are seen throughout both lungs, the largest measuring up to 10 mm in the left upper lobe. Recommend PET-CT for further evaluation. - currently on room air - CT chest shows No focal pneumonia. - consider thoracentesis Gastrointestinal : Retroperitoneal hemorrhage measures up to 10 cm longitudinal. right iliacus intramuscular hemorrhage. ( SEEN ON CT ) Coagulopathy due to ?sepsis Possible liver cirrhosis anticoagulation therapy Jaundice Transaminitis Gi consult Monitor hemoglobin Genitourinary: FILIPPO on CKD likely due to vasomotor nephropathy due to sepsis Anemia of chronic kidney disease - iV fluids - urine studies pending -> Kidney function not getting better. May need dialysis in the near future Infectious Disease Shock likely hypovolemic shock/septic shock Severe Sepsis with septic shock likely due to ?aspiration pneumonia, other sources not identified yet Lactic acid: 3.8 Metabolic acidosis IV fluids followed by norepinephrine drip, 2mcg/hr -IV fluids, small boluses (history of CHF) -IV antibiotics - cultures pending result IV access Central line [facility] 08/08/2024 IV access : Peripheral lines Critical care time excluding procedures >45 min Code status discussed with the patient for 21 min, FULL CODE advance care discussed with patient and nurse Case and plan discussed with Plan discussed with: Patient My Orders My Orders Orders - NANI NESBITT Procedure Category Date Status Time Renal Specific DIET 08/08/24 Transmitted Diet(Renal) Breakfast * Picc Line Consult CONS 08/08/24 Transmitted 09:46 Stool Occult Blood LAB 08/08/24 Logged 09:46 Stool Bacterial IRIS 08/08/24 Logged Culture 09:46 Stool Wbc LAB 08/08/24 Logged 09:46 Ph Stool LAB 08/08/24 Logged 09:46 Electrocardigram EKG 08/08/24 Logged 09:46 Dietary Evaluation Review Comments: 1) Advance to renal specific 40gm 2) Monitor wt trend, lab values, PO intake Expected Outcomes/Goals: To meet >75% estimated needs Fu 3-5 days Date of Service: Aug 08, 2024 Billing Provider: JOSE MELENDEZ MD Common Visit Codes: NOT BILLABLE NANI NESBITT Aug 08, 2024 15:33 JOSE MELENDEZ MD Aug 13, 2024 18:14
--- NOTE | 2024-08-08 16:01 | DVH ---
CHEST RADIOGRAPH Indication: rule out pneumonia Technique: Single frontal view of the chest was obtained Comparison: XY CHEST PORTABLE on DOS: 08/07/24, XY CHEST PORTABLE on DOS: 08/06/24, XY CHEST PORTABLE o n DOS: 08/07/24 FINDINGS: Lines and Tubes: None Lungs: Pulmonary vascular congestion. Pleura: No effusion. No pneumothorax. Cardiomediastinal contours: Unremarkable Bones: No acute osseous abnormality. IMPRESSION: Pulmonary vascular congestion. Pulmonary nodules better seen on prior CT.
[2024-08-08] MEDS: SODIUM BICARB 50mEq/50ml Vial 75 ML in SOD CHL 0.45% 1,000 ML IV SCH (16:09)
[2024-08-08] MEDS: MIDODRINE HCL 10 MG TAB PO SCH (18:24)
[2024-08-08] MEDS: NOREPINEPHRINE 8 MG/250ML KIT 250 ML IV SCH (19:15)
[2024-08-08] MEDS: LEVALBUTEROL HCL 1.25 MG/3 ML NEB NEB SCH (19:16)
--- NOTE | 2024-08-08 19:16 | DVHNC2 ---
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: Other Indication: Hypotension, Volume resuscitation, Inability to obtain IV Room prepared for procedure: Yes [employer] performed hand hygien: Yes Maximal sterile barrier precau: Mask/Eye shield, Sterile gown, Cap, Sterlie gloves, Large sterlie drape Skin Preparation: Chlorhexidine gluconate Skin preparation completely dr: Yes Insertion site: Right, Internal jugular Central line catheter type: Tunneled- not dialysis Number of lumens: 3 Antiseptic ointment applied to: Yes Post Assessment: Chest X-Ray Informed consent obtained: Yes Risks/benefits/alt described: Yes Notes Central line place using the RIJ. Indication needs IV access for multiple medications. Procedure explained to the patient. Risk and benefits discussed. Procedure done under sterile condition under the supervision of my attending Dr. Castro. Procedure was successful. No complications observed. Cxr Right central venous catheter in satisfactory position. No appreciable pneumothorax. Date of Service: Aug 08, 2024 Billing Provider: JOSE CASTRO MD Common Visit Codes: PROCEDURE ONLY Date of Service: Aug 08, 2024 Billing Provider: JOSE CASTRO MD Common Visit Codes: NOT BILLABLE NANI NESBITT RESIDENT Aug 08, 2024 19:16 JOSE CASTRO MD Aug 13, 2024 18:10
--- NOTE | 2024-08-08 19:56 | DVH ---
CHEST RADIOGRAPH Indication: CENTRAL LINE PLACEMENT VERIFICATION Technique: Single frontal view of the chest was obtained COMPARISON: XY CHEST XRAY 1 VIEW on DOS: 08/08/24, XY CHEST PORTABLE on DOS: 08/07/24, XY CHEST PORTABL E on DOS: 08/06/24 FINDINGS: Lines and Tubes: Right central venous catheter in satisfactory position. Lungs: Congestion Pleura: No effusion. No pneumothorax. Cardiomediastinal contours: Unremarkable Bones: Unremarkable IMPRESSION: Right central venous catheter in satisfactory position. No appreciable pneumothorax.
[2024-08-09] VITALS (69 sets, daily range): BP systolic 82–125; BP diastolic 48–73; PULSE 69–135; RESP 15–32; TEMP 96.9–98.7; O2SAT 93–100
[2024-08-09 05:40] LABS: Basophils # (auto) 0 10 ^3/uL (0-0.2); Basophils % (auto) 0.5 % (0.0-2.0); Eosinophils # (auto) 0 10 ^3/uL (0-0.8); Hematocrit 32.7 % (41.0-53.0); Hemoglobin 11.1 g/dL (13.5-17.5); Lymphocytes # (auto) 0.2 10 ^3/uL (0.4-5.4); Lymphocytes % (auto) 2.8 % (10.0-50.0); Mean Corpuscular Hemoglobin 31.1 pg (28.0-32.0); Mean Corpuscular Hgb Conc. 33.9 g/dL (32.0-36.0); Mean Corpuscular Volume 91.7 fL (80.0-100.0); Monocytes # (auto) 0.3 10 ^3/uL (0-1.3); Neutrophils # (auto) 6.7 10 ^3/uL (1.6-8.6); Neutrophils % (auto) 92.7 % (37.0-80.0); Nucleated Red Blood Cells % 3.8 %; Platelet Count (auto) 161 10^3/uL (140-450); Red Blood Cells 3.57 10^6/uL (4.5-5.90); Red Cell Distribution Width 21.6 % (11.8-14.3); White Blood Cell 7.2 10^3/uL (4.4-10.8)
[2024-08-09 05:59] LABS: Anion Gap 14 (5-15); Carbon Dioxide 24 mmol/L (20-31); Chloride 104 mmol/L (98-107); Potassium 3.7 mmol/L (3.5-5.1); Sodium 142 mmol/L (136-145)
[2024-08-09 06:00] LABS: BUN/Creatinine Ratio 14.6 (10.0-20.0)
[2024-08-09 06:02] LABS: Alanine Aminotransferase 100 U/L (7-40); Albumin 2.3 g/dL (3.2-4.8); Alkaline Phosphatase 976 U/L (46-116); Aspartate Aminotransferase 60 U/L (<34); Bilirubin, Total 3.3 mg/dL (0.2-1.0); Blood Urea Nitrogen 78 mg/dL (9-23); Calcium 7.5 mg/dL (8.7-10.4); Glucose 123 mg/dL (74-106); Total Protein 3.9 g/dL (5.7-8.2)
--- NOTE | 2024-08-09 07:35 | ECG ---
[facility] Test Date: 2024-08-08 Test Time: 09:53:06 Pat Name: BEE OSBORN Department: Room: 0264 A Gender: M Process Specialist: : [id number] Requested By: NANI NESBITT Order Number: [id number] Reading MD: Yann Lal Measurements Intervals [place] Rate: 86 P: 47 AR: 156 QRS: -84 QRSD: 102 T: 86 QT: 404 QTc: 483 Interpretive Statements Normal sinus rhythm Left axis deviation Low voltage QRS Possible Lateral infarct , age undetermined Inferior-posterior infarct , age undetermined Electronically Signed On 08-11-2024 20:18:57 PDT by Yann Lal Please click the below link to view image of tracing.
--- NOTE | 2024-08-09 11:11 | DVHPN2 ---
Progress Note Date Seen: Aug 09, 2024 Has the PT tested + for MRSA If YES, has PT been informed?: No Medical Necessity Reason Pt with a Central, PICC or Fol: No The following are medically ne: Central Line Subjective Other Systems: Patient seen and by myself today in follow-up on ventilator Objective vital signs Vital Sign Date Time Temp Pulse Resp B/P (MAP) Pulse Ox O2 Delivery O2 Flow Rate FiO2 08/09/24 08:15 94 21 91/61 (71) 93 08/09/24 08:00 98.2 98.2 08/09/24 06:35 Nasal Cannula 2.0 08/09/24 06:35 28 Total Intake and Output 08/08/24 08/08/24 08/09/24 15:00 23:00 07:00 Intake Total 131.455 ml 990.90 ml 1130.900 ml Output Total 300 ml 250 ml Balance 131.455 ml 690.90 ml 880.900 ml medications Current Medications Medications Dose Ordered Sig/Mary Route Start Time Stop Time Status Last Admin Dose Admin Ipratropium [place] 0.5 mg Q4HPRN PRN NEB 08/06/24 21:15 08/08/24 19:16 0.5 MG Linezolid 300 ml @ 150 mls/hr Q12HR IV 08/06/24 22:00 08/09/24 10:18 150 MLS/HR Acetaminophen 500 mg Q8HP PRN PO 08/06/24 21:30 Piperacillin Sod/ Tazobactam Sod 100 ml @ 25 mls/hr Q12H IV 08/07/24 18:00 08/09/24 06:10 25 MLS/HR Ondansetron HCl 4 mg Q4HPRN PRN IV 08/08/24 06:00 08/09/24 06:32 4 MG Sodium Bicarbonate 75 ml/ Sodium Chloride 1,075 ml @ 120 mls/hr Q8H58M IV 08/08/24 10:45 08/09/24 04:41 120 MLS/HR Dopamine HCl/ Dextrose 250 ml @ 5.205 mls/ hr Q24H IV 08/08/24 10:45 08/08/24 12:15 5.205 MLS/HR Midodrine 10 mg TID@0600,1200,1800 PO 08/08/24 12:00 08/09/24 06:10 10 MG Levalbuterol HCl 0.625 mg Q6HR NEB 08/08/24 18:00 08/09/24 06:35 0.625 MG Norepinephrine Bitartrate 250 ml @ 3.75 mls/hr Q24H IV 08/08/24 19:15 08/08/24 19:15 3.75 MLS/HR Examination: LUNGS:Normal, CVS:Normal, MSK:Normal laboratory and microbiology Laboratory Tests 08/09/24 04:58 Test 08/09/24 04:58 Range/Units Serum Glucose 123 H 74-106 mg/dL Microbiology Date/Time Source Procedure Growth Status 08/07/24 03:03 Nose MRSA Screen - Final Complete 08/06/24 21:51 Blood Blood Culture - Preliminary NO GROWTH AFTER 48 HOURS OF INCUBATION. Resulted Problem List/Assessment/Plan Problem List/Assessment/Plan Acute kidney injury superimposed imposed on Chronic Kidney Disease secondary vasomotor nephropathy, FeNa <1% Toxic encephalopathy COPD exacerbation AFib Metabolic acidosis Jaundice Transaminitis Retroperitoneal hemorrhage Anemia of chronic kidney disease Recommendations Kidney function continues to worsens Patient remained oliguric Obtain consents for Ryan catheter and hemodialysis Hemodialysis after catheter placement Albumin 25% IV piggyback P.r.n. hemodialysis IV pressors for blood pressure support [place] catheter Strict I&Os kidney ultrasound reported within normal limit Check hep B and hep C virus Discontinue Low-dose dopamine --> arrythmias IV steroids IV antibiotics We will continue to follow Plan discussed with: Patient, Other (Nurse) My Orders My Orders Orders - KISHA DUBOIS MD Procedure Category Date Status Time Midodrine Tablet PHA 08/08/24 In Process (Proamatine Tablet) 12:00 Dietary Evaluation Review Comments: 1) Advance to renal specific 40gm 2) Monitor wt trend, lab values, PO intake Expected Outcomes/Goals: To meet >75% estimated needs Fu 3-5 days KISHA DUBOIS MD Aug 09, 2024 11:11
[2024-08-09] MEDS ORDERED: ALBUMIN 25% 100 ML IV PRN (11:15)
[2024-08-09 13:19] LABS: Lactic Acid w/Reflex 3.8 mmol/L (0.4-2.0)
[2024-08-09] MEDS: NOREPINEPHRINE 8 MG/250ML KIT 250 ML IV SCH (14:30)
[2024-08-09] MEDS: THROAT LOZENGES(CEPASTAT) MT PRN (14:37)
[2024-08-09] MEDS: AMIODARONE 360mg/200mL PREMIX 200 ML IV ONE (15:45)
--- NOTE | 2024-08-09 16:54 | DVHPNRES ---
Progress Note Date Seen: Aug 09, 2024 Resident Creating Document: NANI NESBITT RESIDENT Has the PT tested + for MRSA If YES, has PT been informed?: No Medical Necessity Reason Pt with a Central, PICC or Fol: Yes The following are medically ne: Central Line Medical Necessity Reason Patient seen and examine. He has no new complaints today. His blood pressure continues to go low even on levophed. Yesterday, patient was started on dopamine for kidney perfusion; however, he did not tolerate it well he went into AFib RVR and had to be discontinued. This morning on re-evaluation his creatinine level seemed to be trending up. Nephrology has seen the patient and recommended Ryan catheter for hemodialysis. Still no source of infection identified but patient keeps running low blood pressure. Patient had an echo done July 18 under a different name ([facility]) EF: 60%. Patient had a central line placed yesterday08/08/2024 in the right internal jugular vein pale with no complications. Ryan catheter placed on the left IJ 08/09/2024. Subjective Review of Systems Constitutional: Denies fever no chills no feeling of malaise, fatigue, weak, weight loss HEENT: Denies headache, ear pain, ear discharges, conjunctivitis, nasal discharge throat pain Cardiovascular: Denies chest pain, palpitation, orthopnea, PND, or pedal edema, tachycardia Respiratory: Denies shortness of breath, cough cough, sputum production, hemoptysis, GI: Denies abdominal pain, nausea, vomiting, diarrhea, hematemesis, hematochezia, : Denies frequency, urgency, hematuria; Oliguric Endocrine: Denies unintentional weight gain or weight loss, feeling of hot flashes; Weight loss 30 lbs Eugenio: Denies easy bruising, bleeding disorders, epistaxis Musculoskeletal: Denies joint pains, muscle aches Psych: No evidence of depression, bob, suicidal ideation Objective vital signs Vital Sign Date Time Temp Pulse Resp B/P (MAP) Pulse Ox O2 Delivery O2 Flow Rate FiO2 08/09/24 15:55 84/56 08/09/24 15:00 131 17 99 08/09/24 12:00 97.7 97.7 08/09/24 11:43 Nasal Cannula 2.0 08/09/24 11:43 28 Total Intake and Output 08/08/24 08/08/2408/09/25 15:00 23:00 07:00 Intake Total 131.455 ml 990.90 ml 1157.775 ml Output Total 300 ml 250 ml Balance 131.455 ml 690.90 ml 907.775 ml medications Current Medications Medications Dose Ordered Sig/Mary Route Start Time Stop Time Status Last Admin Dose Admin Ipratropium [place] 0.5 mg Q4HPRN PRN NEB 08/06/24 21:15 08/08/24 19:16 0.5 MG Linezolid 300 ml @ 150 mls/hr Q12HR IV 08/06/24 22:00 08/09/24 10:18 150 MLS/HR Acetaminophen 500 mg Q8HP PRN PO 08/06/24 21:30 Piperacillin Sod/ Tazobactam Sod 100 ml @ 25 mls/hr Q12H IV 08/07/24 18:00 08/09/24 06:10 25 MLS/HR Ondansetron HCl 4 mg Q4HPRN PRN IV 08/08/24 06:00 08/09/24 06:32 4 MG Sodium Bicarbonate 75 ml/ Sodium Chloride 1,075 ml @ 120 mls/hr Q8H58M IV 08/08/24 10:45 08/09/24 13:49 120 MLS/HR Midodrine 10 mg TID@0600,1200,1800 PO 08/08/24 12:00 08/09/24 13:44 10 MG Levalbuterol HCl 0.625 mg Q6HR NEB 08/08/24 18:00 08/09/24 11:43 0.625 MG Norepinephrine Bitartrate 250 ml @ 3.75 mls/hr Q24H IV 08/08/24 19:15 08/09/24 15:55 3.75 MLS/HR Throat Lozenges 1 nuno Q2HP PRN MT 08/09/24 13:00 08/09/24 14:37 1 NUNO Norepinephrine Bitartrate 250 ml @ 3.75 mls/hr Q24H IV 08/09/24 14:30 UNV Vasopressin 20 units/Sodium Chloride 100 ml @ 9 mls/hr Q11H7M IV 08/09/24 14:30 Examination General Appearance: Alert, Oriented X3, Cooperative, weak HEENT: Atraumatic, PERRLA, EOMI, Mucous membrane moist/pink; RIJ central line Respiratory: Clear to auscultation, Normal air movement Cardiovascular: irregular , Normal S1, Normal S2, No murmurs, no chest wall tenderness Abdominal: NO distention, no tenderness, bowel sounds present, no scars noted Extremities: No clubbing, No cyanosis, No edema, Normal pulses, No tenderness/swelling Skin: No rashes, No breakdown, No significant lesion Neuro: lying in bed, felt week Psych/Mental Status: Mental status NL, Mood NL laboratory and microbiology Laboratory Tests 08/09/24 04:58 Test 08/09/24 04:58 Range/Units Serum Glucose 123 H 74-106 mg/dL Microbiology Date/Time Source Procedure Growth Status 08/09/24 02:07 Stool Stool Culture - Preliminary Resulted 08/09/24 02:07 Stool Shiga Toxin I & II - Final Resulted 08/07/24 03:03 Nose MRSA Screen - Final Complete 08/06/24 21:51 Blood Blood Culture - Preliminary NO GROWTH AFTER 48 HOURS OF INCUBATION. Resulted Problem List/Assessment/Plan Problem List/Assessment/Plan Assessment and plan Neurology: syncope -echo 07/18/2024( [facility]) : 60% - tsh b12 fdolate - head CT: No acute intracranial abnormality. Cardiovascular: Chronic HFpEF, ?acute exacerbation Afib RVR today 08/08/2024, afib 08/09/2025 for > 30mins Hypotension: 89/77 -currently in shock, on levophed 2mcg/hr - started amiodarone - S/p Central line ( 08/08/2025) for all medications and possible -hold anticoagulation, retroperitoneal hemorrhage on imaging - Resume amiodarone 08/09/2024 Respiratory: Acute hypoxic resp failure due to sepsis, ?aspiration pneumonia Multiple pulmonary nodules Mediastinal lymphadenopathy, left paratracheal lymph node measuring up to 1.5 cm ( CT) Small right pleural effusion possible exudative ? parapneumonic effusion ?transudative COPD - PRN levalbuterol and ipratropium - CT : Multiple pulmonary nodules (at least 8) are seen throughout both lungs, the largest measuring up to 10 mm in the left upper lobe. Recommend PET-CT for further evaluation. - currently on room air - CT chest shows No focal pneumonia. - consider thoracentesis Gastrointestinal : Retroperitoneal hemorrhage measures up to 10 cm longitudinal. right iliacus intramuscular hemorrhage. ( SEEN ON CT ) Coagulopathy due to ?sepsis Possible liver cirrhosis anticoagulation therapy Jaundice Transaminitis Gi consult Monitor hemoglobin Genitourinary: FILIPPO on CKD likely due to vasomotor nephropathy due to sepsis Kidney function worsening. Anemia of chronic kidney disease - iV fluids - PLAN: Ryan catheter for HD ( 08/09/2024) Infectious Disease Shock likely hypovolemic shock/septic shock Severe Sepsis with septic shock likely due to ?aspiration pneumonia, other sources not identified yet Lactic acid: 3.8 Metabolic acidosis IV fluids followed by norepinephrine drip, 2mcg/hr -IV fluids, small boluses (history of CHF) -IV antibiotics - cultures : No growth IV access Central line RIJ 08/08/2024 Ryan Catheter LIJ 08/09/2024 IV access : Peripheral lines Plan today 08/09/24 Increase Levophed add amiodarone N/S bolus 500ml GI consulted Critical care time excluding procedures >45 min advance care discussed with patient and nurse Case and plan discussed with Plan discussed with: Patient My Orders My Orders Orders - NANI NESBITT Procedure Category Date Status Time Central Line Insertion BD 08/08/24 Transmitted 18:45 Ok To Use Central Line ORDERS 08/08/24 Transmitted 18:45 Norepinephrine 8 PHA 08/08/24 In Process Mg/250ml Kit 19:15 Chest Portable XY 08/08/24 Resulted 19:04 *[facility] CONS 08/09/24 Transmitted 11:34 Rapid Strep Screen - LAB 08/09/24 Logged Throat 12:48 Throat Lozenges PHA 08/09/24 In Process (Cepastat Lozenges) 13:00 Electrocardigram EKG 08/09/24 Logged 15:29 Amiodarone PHA 08/09/24 In Process 360mg/200ml Premix 15:45 Amiodarone PHA 08/09/24 In Process 360mg/200ml Premix 21:45 Dietary Evaluation Review Comments: 1) Advance to renal specific 40gm 2) Monitor wt trend, lab values, PO intake Expected Outcomes/Goals: To meet >75% estimated needs Fu 3-5 days Date of Service: Aug 09, 2024 Billing Provider: JOSE MELENDEZ MD Common Visit Codes: NOT BILLABLE NANI NESBITT Aug 09, 2024 16:54 JOSE MELENDEZ MD Aug 13, 2024 18:29
[2024-08-09] MEDS: VASOPRESSIN 20 UNITS in SODIUM CHL 0.9% 99 ML IV SCH (17:06)
[2024-08-09] MEDS: AMIODARONE BOLUS KIT 100 ML IV ONE (17:06)
[2024-08-09 18:00] LABS: Rapid Strep A Screen-Throat Negative
[2024-08-09] MEDS: SODIUM CHLORIDE 0.9% 500 ML IV ONE (18:15)
--- NOTE | 2024-08-09 18:55 | DVH ---
CHEST RADIOGRAPH Indication: CENTRAL LINE PLACEMENT Technique: Single frontal view of the chest was obtained Comparison: XY CHEST PORTABLE on DOS: 08/08/24, XY CHEST XRAY 1 VIEW on DOS: 08/08/24, XY CHEST PORTABL E on DOS: 08/07/24 FINDINGS: Lines and Tubes: Central line in place right and left internal jugular veins in the superior vena cav a. Lungs: Airspace disease right lower lobe slightly worse 08/08/2024 Pleura: No effusion. No pneumothorax. Cardiomediastinal contours: Unremarkable Bones: No acute osseous abnormality. IMPRESSION: 1. Bilateral internal jugular catheter is in place in the superior vena cava. No pneumothorax 2. Worsening right lower lobe airspace disease.
--- NOTE | 2024-08-09 20:27 | DVHNC2 ---
Procedure - Procedure- Left IJ dialysis catheter placement ultrasound guided Indication- Renal failure and fluid removal Procedure in detail Consent was obtained and timeout performed per protocol. The patient was placed in the supine position and the left IJkl vein was localized using ultrasound SonoSite. ChloraPrep was used to clean the operative field, sterile drapes used to cover the area and local analgesia Lidocaine 1% 3 cc. Dual-lumen hemodialysis catheter was inserted over the wire with direct ultrasound guidance in the right femoral vein. The wire was removed, catheter flushed with normal saline and secured with 2 sutures. Sterile dressing applied. No complications. JOSE MELENDEZ MD Aug 09, 2024 20:27
[2024-08-09] MEDS: SODIUM CHL 0.9% 1000 ML BAG XX ONE (20:31)
[2024-08-09] MEDS: AMIODARONE 360mg/200mL PREMIX 200 ML IV SCH (21:49)
[2024-08-10] VITALS (103 sets, daily range): BP systolic 91–144; BP diastolic 48–77; PULSE 59–107; RESP 14–31; TEMP 97.7–98.9; O2SAT 86–100
[2024-08-10 05:36] LABS: Basophils # (auto) 0 10 ^3/uL (0-0.2); Basophils % (auto) 0.1 % (0.0-2.0); Eosinophils # (auto) 0 10 ^3/uL (0-0.8); Eosinophils % (auto) 0.2 % (0.0-7.0); Hematocrit 31.8 % (41.0-53.0); Hemoglobin 10.7 g/dL (13.5-17.5); Lymphocytes # (auto) 0.1 10 ^3/uL (0.4-5.4); Lymphocytes % (auto) 1.9 % (10.0-50.0); Mean Corpuscular Hemoglobin 31.1 pg (28.0-32.0); Mean Corpuscular Hgb Conc. 33.5 g/dL (32.0-36.0); Mean Corpuscular Volume 92.6 fL (80.0-100.0); Monocytes # (auto) 0.2 10 ^3/uL (0-1.3); Monocytes % (auto) 3.1 % (0.0-12.0); Neutrophils # (auto) 7.1 10 ^3/uL (1.6-8.6); Neutrophils % (auto) 94.7 % (37.0-80.0); Nucleated Red Blood Cells % 8.6 %; Platelet Count (auto) 122 10^3/uL (140-450); Red Blood Cells 3.43 10^6/uL (4.5-5.90); Red Cell Distribution Width 22.2 % (11.8-14.3); White Blood Cell 7.5 10^3/uL (4.4-10.8)
[2024-08-10 05:49] LABS: Anion Gap 19 (5-15); BUN/Creatinine Ratio 13.1 (10.0-20.0); Carbon Dioxide 22 mmol/L (20-31); Chloride 100 mmol/L (98-107); Sodium 141 mmol/L (136-145)
[2024-08-10 05:53] LABS: Alanine Aminotransferase 117 U/L (7-40); Albumin 2.3 g/dL (3.2-4.8); Aspartate Aminotransferase 132 U/L (<34); Bilirubin, Total 4.4 mg/dL (0.2-1.0); Blood Urea Nitrogen 60 mg/dL (9-23); Calcium 7.7 mg/dL (8.7-10.4); Glucose 131 mg/dL (74-106); Total Protein 3.7 g/dL (5.7-8.2)
[2024-08-10] MEDS: METOCLOPRAMIDE HCL 5MG/ml INJ 2ml VIAL IV PRN (06:00)
[2024-08-10] MEDS: LACTATED RINGER'S 500 ML IV ONE (06:26)
[2024-08-10] MEDS: MAGNESIUM SULFATE 1GM/100ML 100 ML IV ONE (06:30)
[2024-08-10 06:32] LABS: Alkaline Phosphatase 974 U/L (46-116)
--- NOTE | 2024-08-10 07:52 | ECG ---
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
--- NOTE | 2024-08-10 08:31 | ECG ---
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
--- NOTE | 2024-08-10 09:17 | DVH ---
INDICATION: rule out hepatobiliary pathology. rising bilirubin TECHNIQUE: Multiple real-time sonographic images of the abdomen were obtained. COMPARISON: None FINDINGS: The liver is heterogenous in echogenicity. The liver measures 17cm. No intrahepatic biliar y ductal dilatation is noted. The gallbladder wall measures 0.3 cm and is unremarkable. No gallstones or sludge is seen. The commo n duct measures 0.5 cm and is unremarkable. No pericholecystic fluid is noted. The right kidney measures 10cm. No hydronephrosis. 5cm right renal cyst. The pancreas is not well visualized due to obscuration from bowel gas. The visualized portions of the IVC and aorta are grossly unremarkable. IMPRESSION: Small right pleural effusion. Fatty Liver Trace pericholecystic fluid. 5cm right renal cyst.
[2024-08-10] MEDS: ALBUMIN 25% 100 ML IV SCH (10:00)
--- NOTE | 2024-08-10 16:12 | DVHCONRES ---
Date Seen: Aug 10, 2024 Resident Creating Document: JILLIAN JOHNSON RESIDENT Referring Physician Kevin Temple MD History of Present Illness Patient is 71 years old male with past medical history of COPD, hypertension, AFib came with a complaint of syncope. Patient also reported shortness of breat hs associated with cough, nausea and vomiting and chill. At ER patient was tachycardic and tachypneic. Initial lab workup revealed serum creatinine 4.03, BUN 62, lactic acid 11.9, serum bilirubin 2.8, AST 143, ALT 77, TSH 7.0, negative for acute hepatitis panel and also for COVID and flu. Stool occult blood test negative, INR 3.84. CTA negative for acute intracranial abnormality. CT scan of the chest revealed- Multiple pulmonary nodules (at least 8) are seen throughout both lungs, the largest measuring up to 10 mm in the left upper lobe. Recommend PET-CT for further evaluation. Severe centrilobular emphysema. Mediastinal lymphadenopathy, for example a left paratracheal lymph node measuring up to 1.5 cm. Small right pleural effusion. Venous Doppler of the lower extremity negative for DVT. CT abdomen pelvis revealed small bilateral pleural effusion. Right retroperitoneal hemorrhage measure up to 10 cm longitudinally. There is also likely right iliacus intramuscular hemorrhage. Stool for shiga toxin negative Patient was seen today at bedside for intractable nausea and vomiting H&H 10.7/31.8, Leukocytosis resolved Thrombocytopenia with platelet 122 Lactic acid trending down Persistent transaminitis Blood culture no growth Liver ultrasound revealed small right cerebellar effusion, fatty liver, trace pericholecystic fluid, 5 cm right renal cyst. Family History: FH: cancer G8 MOTHER Allergies: Coded Allergies: NO KNOWN ALLERGIES (Unverified , 08/06/24) Current Medications Current Medications Medications (Trade) Dose Ordered Sig/Mary Route PRN Reason Start Time Stop Time Status Last Admin Acetaminophen/ Hydrocodone Bitart ([place] 5/325MG Tab) 1 tab Q6HPRN PRN PO MODERATE PAIN (4-6 PAIN SCALE) 08/09/24 20:00 Metoclopramide HCl (Reglan Injection) 5 mg Q6HPRN PRN IV NAUSEA / VOMITING 08/10/24 04:30 08/10/24 06:00 Albumin Human 100 ml @ 100 mls/hr Q1HR IV 08/10/24 10:00 08/10/24 11:59 DC 08/10/24 10:33 Vital Signs Vital Signs Date Time Temp Pulse Resp B/P (MAP) Pulse Ox O2 Delivery O2 Flow Rate FiO2 08/10/24 14:30 87 15 102/57 (72) 99 08/10/24 14:00 Nasal Cannula* 2 28 08/10/24 12:00 98.2 98.2 Physical Exam General examination- awake and alert HEENT- PEERLA, no acute nasal discharge Cardiovascular- S1-S2 audible, rate and rhythm regular, no murmur Respiratory- + bilateral lung crackles Gastrointestinal-mild bilateral abdominal tenderness +, bowel sound+. Nondistended Musculoskeletal-no acute joint swelling or tenderness or redness Lower extremity- leg edema Neurological- cranial nerves intact, no acute dysarthria or dysphagia Psychiatry- denies depression or SI or HI Skin- no acute rash or purpura Labs/Diagnostic Data Labs Test 08/10/24 04:58 08/09/24 17:30 08/09/24 02:07 08/08/24 12:03 Range/Units White Blood Count 7.5 4.4-10.8 10^3/uL Red Blood Count 3.43 L 4.5-5.90 10^6/uL Hemoglobin 10.7 L 13.5-17.5 g/dL Hematocrit 31.8 L 41.0-53.0 % Mean Corpuscular Volume 92.6 80.0-100.0 fL Mean Corpuscular Hemoglobin 31.1 28.0-32.0 pg Mean Corpuscular Hemoglobin Concent 33.5 32.0-36.0 g/dL Red Cell Distribution Width 22.2 H 11.8-14.3 % Platelet Count 122 L 140-450 10^3/uL Mean Platelet Volume 10.0 6.9-10.8 fL Neutrophils (%) (Auto) 94.7 H 37.0-80.0 % Lymphocytes (%) (Auto) 1.9 L 10.0-50.0 % Monocytes (%) (Auto) 3.1 0.0-12.0 % Eosinophils (%) (Auto) 0.2 0.0-7.0 % Basophils (%) (Auto) 0.1 0.0-2.0 % Neutrophils # (Auto) 7.1 1.6-8.6 10 ^3/uL Lymphocytes # (Auto) 0.1 L 0.4-5.4 10 ^3/uL Monocytes # (Auto) 0.2 0-1.3 10 ^3/uL Eosinophils # (Auto) 0 0-0.8 10 ^3/uL Basophils # (Auto) 0 0-0.2 10 ^3/uL Nucleated Red Blood Cells 8.6 % Sodium Level 141 136-145 mmol/L Potassium Level 4.0 3.5-5.1 mmol/L Chloride Level 100 98-107 mmol/L Carbon Dioxide Level 22 20-31 mmol/L Anion Gap 19 H 5-15 Blood Urea Nitrogen 60 #H 9-23 mg/dL Creatinine 4.59 H 0.700-1.30 mg/dL Glomerular Filtration Rate Calc 13 >90 mL/min BUN/Creatinine Ratio 13.1 10.0-20.0 Serum Glucose 131 H 74-106 mg/dL Lactic Acid Level 6.0 *H 0.4-2.0 mmol/L Calcium Level 7.7 L 8.7-10.4 mg/dL Magnesium Level 2.0 1.6-2.6 mg/dL Total Bilirubin 4.4 H 0.2-1.0 mg/dL Aspartate Amino Transferase (AST) 132 H <34 U/L Alanine Aminotransferase (ALT) 117 H 7-40 U/L Alkaline Phosphatase 974 H 46-116 U/L Lactate Dehydrogenase 637 H 120-246 U/L Total Protein 3.7 L 5.7-8.2 g/dL Albumin 2.3 L 3.2-4.8 g/dL Group A Streptococcus Rapid Negative Stool Occult Blood Negative Negative Stool Occult Blood Sample #3 Negative Stool for White Cells Rare Prothrombin Time 19.3 H 9.3-11.8 sec Prothrombin Time INR 1.94 H 0.9-1.15 Troponin I High Sensitivity 20 </=54 ng/L Test 08/08/24 09:23 08/07/24 18:15 08/07/24 11:15 08/07/24 04:42 Range/Units Differential Total Cells Counted 100.0 100 Neutrophils % (Manual) 90 H 37.0-80.0 Band Neutrophils % (Manual) 0 Lymphocytes % (Manual) 2 L 10.0-50.0 Monocytes % (Manual) 7 0-12 Eosinophils % (Manual) 0 0-7 Basophils % (Manual) 0 0.0-2.0 Metamyelocytes % (manual) 1 Myelocytes % (Manual) 0 Promyelocytes % (Manual) 0 Blast Cells % (Manual) 0 Reactive Lymphocytes 0 Platelet Estimate Adequate Anisocytosis (manual) Slight POC Glucose 157 H 70-106 mg/dl Urine Color Dark-yellow Yellow Urine Clarity Turbid H Clear Urine pH 5.0 5.0-9.0 Urine Specific [place] 1.020 1.001-1.035 Urine Protein 1+ H Negative Urine Ketones 1+ H Negative Urine Blood Trace H Negative /uL Urine Nitrite Negative Negative Urine Bilirubin 1+ Negative Urine Urobilinogen 4 H Negative mg/dL Urine Leukocyte Esterase Negative Negative /uL Urine RBC 5 0 - 3 /hpf Urine Microscopic WBC 12 H 0-3 /HPF Urine Squamous Epithelial Cells Few <5 /hpf Urine Bacteria Few H None Seen /hpf Urine Creatinine 152.15 H 30.0-125.0 mg/dL Urine Protein/Creatinine Ratio 0.76 Urine Sodium 22 L 40-220 mmol/L Urine Glucose 1+ H Normal mg/dL Urine Total Protein 115.9 H 1-14 mg/dL Clumped Platelets Few Large Platelets Few Phosphorus Level 7.2 H 2.4-5.1 mg/dL Tumor Marker Alpha Fetoprotein <1.8 0.0-8.4 ng/mL Carcinoembryonic Antigen 2.73 <=5.0 ng/mL CA 19-9 Antigen 308 H 0-35 U/mL Vitamin D 25-Hydroxy 32.0 30.0-100 ng/mL Parathyroid Hormone (Intact) 256.2 H 18.4-80.1 pg/mL Hepatitis B Surface Antigen Negative Negative Hepatitis C Antibody Negative Negative Test 08/07/24 03:03 08/06/24 22:49 08/06/24 21:45 08/06/24 21:07 Range/Units Influenza Type A Antigen Negative Negative Influenza Type B Antigen Negative Negative SARS-CoV-2 Antigen (Rapid) Negative NEGATIVE Activated Partial Thromboplast Time 57.5 H 24.5-34.5 SEC Blood Gas Specimen Type Arterial Blood Gas Sample Site Right radial Blood Gas Patient Temperature 37.0 Arterial Blood Date Drawn [id number] Arterial Blood pH 7.433 7.350-7.450 Arterial Blood Partial Pressure CO2 19.2 *L 35.0-48.0 mmHg Arterial Blood Partial Pressure O2 102.5 83.0-108.0 mmHg Arterial Blood HCO3 12.5 L 21.0-28.0 mmol/L Arterial Blood Oxygen Saturation 97.6 94.0-98.0 % Arterial Blood Base Excess -9.3 L -2.0-3.0 mmol/L Arterial Blood Oxyhemoglobin 96.4 94.0-98.0 % Arterial Blood Carboxyhemoglobin 0.7 0.5-1.5 % Arterial Blood Methemoglobin 0.5 0.0-1.5 % Vinny Test Yes Blood Gas Total Hemoglobin 13.10 L 13.5-17.5 g/dL Blood Gas Liter Flow 3.00 Blood Gas Modality Nasal cannula Blood Gas Spontaneous Rate 28 FiO2 % 32.0 Specimen Drawn By Deisy madden rt Blood Gas Critical Value Read Back Yes Blood Gas Notified Whom aparna Breaux md Blood Gas Notified Time [id number] Blood Gas Notified By Deisy madden rt Direct Bilirubin 2.8 H <0.3 mg/dL Test 08/06/24 18:15 Range/Units Hemoglobin A1c 4.7 <5.7 % A1C B-Type Natriuretic Peptide 50.58 0-100 pg/mL Vitamin B12 Level 1589 H 211-911 pg/mL Folic Acid 14.61 >5.38 ng/mL Thyroid Stimulating Hormone (TSH) 7.08 H 0.55-4.78 uIU/mL Microbiology Date/Time Source Procedure Growth Status 08/09/24 17:30 Throat Nose/Throat Culture - Preliminary Resulted 08/09/24 02:07 Stool Stool Culture - Preliminary Resulted 08/09/24 02:07 Stool Shiga Toxin I & II - Final Resulted 08/07/24 03:03 Nose MRSA Screen - Final Complete 08/06/24 21:51 Blood Blood Culture - Preliminary NO GROWTH AFTER 72 HOURS OF INCUBATION. Resulted Assessment Assessment and plan Syncope AFib with a RVR Acute hypoxic respiratory failure Retroperitoneal hemorrhage Coagulopathy Transaminitis FILIPPO Events H&H 10.7/31.8, Leukocytosis resolved Thrombocytopenia with platelet 122 Lactic acid trending down Persistent transaminitis Blood culture no growth Liver ultrasound revealed small right cerebellar effusion, fatty liver, trace pericholecystic fluid, 5 cm right renal cyst. Plan Continue pantoprazole and Zofran IV fluid as prescribed Maintain intake output Continue current IV antibiotic Vasopressors as needed HD as per Nephrology recommendation Other care as per primary team Monitor CBC, CMP Monitor PT INR Plan discussed with Dr. Lindsay Luna , nursing staff, Total time spent on patient evaluation, chart review, assessment and plan, discussion discussion >35 minutes Plan discussed with: Patient, Other (RN) JILLIAN JOHNSON RESIDENT Aug 10, 2024 16:12
[2024-08-10 17:14] LABS: INR 3.48 (0.9-1.15); Partial Thromboplastin Time 69.5 SEC (24.5-34.5); Prothrombin Time 32.6 sec (9.3-11.8)
--- NOTE | 2024-08-10 17:24 | DVHPNRES ---
Progress Note Date Seen: Aug 10, 2024 Resident Creating Document: NANI NESBITT RESIDENT Has the PT tested + for MRSA If YES, has PT been informed?: No Medical Necessity Reason Pt with a Central, PICC or Fol: Yes The following are medically ne: Central Line Medical Necessity Reason History of presenting illness Patient is a 73-year-old Male with medical history of COPD, hypertension, AFib, questionable CHF, questionable CKD was brought to ED on 08/07/24 via EMS due to a chief complaints of syncopal episode that happened 4 hours prior to presentation. According to the patient, he passed out whilst returning from the bathroom. Denies any chest pain, palpitations,dizziness prior to passing out. Per patient, he passed out for about 10 minutes. He lives with his sister who saw him and called the ambulance to bring him to the hospital. Patient also mentioned that has been having shortness of breath for a while. He also mentioned that he has unintentional weight loss of about 30lbs in 3 months. He has no appetite. Initial vitals in the ED read temp: 95.5 -- 98.7, HR: 84-135, RR:16--30., BP: 84/59--128/107. Lab showed T. simon: 3.6, TSH: 7.08. lactic acid: 11.9, alkaline phosphatase 12 40, creatinine: 4.03 and trending upwards. Right basilar atelectasis/ pneumonia with mild pulmonary vascular congestion / senescent changes. Kidney US Normal sonographic appearance of the kidneys. No hydronephrosis. CT abdomen: Right retroperitoneal hemorrhage measures up to 10 cm longitudinal.There is also likely right iliacus intramuscular hemorrhage. Moderate to severe degenerative changes in the lumbar spine. Hospital course Patient was started on Levophed drip for blood pressure support,pancultured and empirical treatment for sepsis with Zosyn and linezolid. He received bicarb for the acidosis and fluids. lactic acid slightly decreased, the creatinine were trending up. blood pressure continues to remain the lower but steady side. Echo ( 07/18/2024) showed an EF 60%. Central RIJ inserted (08/08/2024) for multiple drips. Given the persistent elevated creatinine, nephrology was consult and recommended HD. Ryan catheter inserted via the LIJ. Patient had his first dialysis yesterday and he is receiving another one today. Repeat labs showed lactic acid going up at 6.0 (from 3.8). Of note, patient has transaminitis,previous imaging studies revealed cirrhosis. CA 19-9 is elevated at 308. GI consulted for further evaluation. PN: 08/10/2024: Patient is seen and examined today. He does not seem to be in any acute respiratory distress. Dialysis went well yesterday he is scheduled to have another dialysis today. However overnight patient was noted to have persistent nausea and vomiting. EKG showed prolonged QTc 508, for the nausea and vomiting, patient was given Reglan instead of Zofran. Was also given magnesium for the prolonged QTc. Patient currently on amiodarone, vasopressin drip, Zosyn and linezolid. Patient has nausea vomiting an hours denied any abdominal pain any lower abdominal pain any back pain or any symptoms pointing towards pancreatitis or cholecystitis. His lab showed elevated alkaline phosphatase 970 ( from 1240). liver ultrasound showed Small right pleural effusion. Fatty Liver and Trace pericholecystic fluid. GI is following to rule out any intestinal malignancy. Subjective Review of Systems Constitutional: Denies fever no chills no feeling of malaise HEENT: Denies headache, ear pain, ear discharges, conjunctivitis, nasal discharge throat pain Cardiovascular: Denies chest pain, palpitation, orthopnea, PND, or pedal edema Respiratory: Denies shortness of breath, cough cough, sputum production, hemoptysis, GI: Nausea and vomiting; Denies abdominal pain, diarrhea, hematemesis, hematochezia, : Denies frequency, urgency, hematuria, Endocrine: Denies unintentional weight gain or weight loss, feeling of hot flashes, Eugenio: Denies easy bruising, bleeding disorders, epistaxis Musculoskeletal: Denies joint pains, muscle aches Psych: No evidence of depression, bob, suicidal ideation Objective vital signs Vital Sign Date Time Temp Pulse Resp B/P (MAP) Pulse Ox O2 Delivery O2 Flow Rate FiO2 08/10/24 16:00 98.9 79 18 115/60 (78) 95 98.9 08/10/24 16:00 Nasal Cannula* 2 28 Total Intake and Output 08/09/24 08/09/24 08/10/24 15:00 23:00 07:00 Intake Total 388.125 ml 709.356 ml 1347.428 ml Balance 388.125 ml 709.356 ml 1347.428 ml medications Current Medications Medications Dose Ordered Sig/Mary Route Start Time Stop Time Status Last Admin Dose Admin Ipratropium [place] 0.5 mg Q4HPRN PRN NEB 08/06/24 21:15 08/08/24 19:16 0.5 MG Linezolid 300 ml @ 150 mls/hr Q12HR IV 08/06/24 22:00 08/10/24 09:06 150 MLS/HR Acetaminophen 500 mg Q8HP PRN PO 08/06/24 21:30 Piperacillin Sod/ Tazobactam Sod 100 ml @ 25 mls/hr Q12H IV 08/07/24 18:00 08/10/24 05:32 25 MLS/HR Ondansetron HCl 4 mg Q4HPRN PRN IV 08/08/24 06:00 08/09/24 06:32 4 MG Sodium Bicarbonate 75 ml/ Sodium Chloride 1,075 ml @ 120 mls/hr Q8H58M IV 08/08/24 10:45 08/10/24 10:55 120 MLS/HR Midodrine 10 mg TID@0600,1200,1800 PO 08/08/24 12:00 08/10/24 12:08 10 MG Levalbuterol HCl 0.625 mg Q6HR NEB 08/08/24 18:00 08/10/24 11:19 0.625 MG Throat Lozenges 1 nuno Q2HP PRN MT 08/09/24 13:00 08/09/24 14:37 1 NUNO Norepinephrine Bitartrate 250 ml @ 3.75 mls/hr Q24H IV 08/09/24 14:30 Vasopressin 20 units/Sodium Chloride 100 ml @ 9 mls/hr Q11H7M IV 08/09/24 14:30 08/10/24 01:33 9 MLS/HR Acetaminophen/ Hydrocodone Bitart 1 tab Q6HPRN PRN PO 08/09/24 20:00 Metoclopramide HCl 5 mg Q6HPRN PRN IV 08/10/24 04:30 08/10/24 06:00 5 MG Examination General Appearance: Alert, Oriented X3, Cooperative, weak HEENT: Atraumatic, PERRLA, EOMI, Mucous membrane moist/pink; RIJ central line, LIJ Ryan catheter Respiratory: Clear to auscultation, Normal air movement Cardiovascular: irregular , Normal S1, Normal S2, No murmurs, no chest wall tenderness Abdominal: mild tenderness at the right flank with mg king sign. Extremities: No clubbing, No cyanosis, No edema, Normal pulses, No tenderness/swelling Skin: No rashes, No breakdown, No significant lesion Neuro: lying in bed, felt week Psych/Mental Status: Mental status NL, Mood NL laboratory and microbiology Laboratory Tests 08/10/24 04:58 Test 08/10/24 04:58 Range/Units Serum Glucose 131 H 74-106 mg/dL Microbiology Date/Time Source Procedure Growth Status 08/09/24 17:30 Throat Nose/Throat Culture - Preliminary Resulted 08/09/24 02:07 Stool Stool Culture - Preliminary Resulted 08/09/24 02:07 Stool Shiga Toxin I & II - Final Resulted 08/07/24 03:03 Nose MRSA Screen - Final Complete 08/06/24 21:51 Blood Blood Culture - Preliminary NO GROWTH AFTER 72 HOURS OF INCUBATION. Resulted Problem List/Assessment/Plan Problem List/Assessment/Plan Assessment and plan Neurology: Syncope - Rule out DRAFTER MARINE etiology -echo 07/18/2024([facility], [facility]): 60% - head CT: No acute intracranial abnormality. Cardiovascular: Syncope rule out cardiac cause Chronic HFpEF, ?acute exacerbation Afib RVR today 08/08/2024, afib 08/09/2025 for > 30mins Hypotension: 89/77 Echo: EF 60% -currently in shock, on Levophed 2mcg/hr - started amiodarone - S/p Central line ( 08/08/2025) for all medications and possible -hold anticoagulation, retroperitoneal hemorrhage on imaging - Resume amiodarone 08/09/2024 Respiratory: Acute hypoxic respiratory failure due to sepsis, ?aspiration pneumonia Multiple pulmonary nodules Mediastinal lymphadenopathy, left paratracheal lymph node measuring up to 1.5 cm ( CT) Small right pleural effusion possible exudative ? parapneumonic effusion ?transudative COPD - PRN levalbuterol and ipratropium - CT : Multiple pulmonary nodules (at least 8) are seen throughout both lungs, the largest measuring up to 10 mm in the left upper lobe. Recommend PET-CT for further evaluation. - currently on room air - CT chest shows No focal pneumonia. - consider thoracentesis Gastrointestinal : Retroperitoneal hemorrhage measures up to 10 cm longitudinal. right iliacus intramuscular hemorrhage. ( SEEN ON CT ) Coagulopathy due to ?sepsis Possible liver cirrhosis anticoagulation therapy Jaundice Transaminitis GI consult Monitor hemoglobin Genitourinary: FILIPPO on CKD likely due to vasomotor nephropathy due to sepsis Kidney function worsening. Anemia of chronic kidney disease - IV fluids - PLAN: Ryan catheter for HD ( 08/09/2024) HD today 08/10/2024 Infectious Disease Shock likely hypovolemic shock/septic shock Severe Sepsis with septic shock likely due to ?aspiration pneumonia, other sources not identified yet Lactic acid: 3.8 Metabolic acidosis IV fluids followed by norepinephrine drip, 2mcg/hr -IV fluids, small boluses (history of CHF) -IV antibiotics - cultures : No growth IV access Central line RIJ 08/08/2024 Ryan Catheter LIJ 08/09/2024 IV access : Peripheral lines Plan today 08/10/24 Off Levophed and Vasopressin Continues amiodarone N/S GI following Monitor Vitals closely Critical care time excluding procedures >45 min Case and plan discussed with Plan discussed with: Patient My Orders My Orders Orders - NANI NESBITT Procedure Category Date Status Time * Gi D[facility] Inspector Shells CONS 08/09/24 Transmitted 17:44 Communication Order ORDERS 08/09/24 Transmitted 18:28 Hydrocodone-Acet PHA 08/09/24 In Process 5/325mg Tab ([place] 20:00 Dietary Evaluation Review Comments: 1) Advance to renal specific 40gm 2) Monitor wt trend, lab values, PO intake Expected Outcomes/Goals: To meet >75% estimated needs Fu 3-5 days NANI NESBITT RESIDENT Aug 10, 2024 17:24
--- NOTE | 2024-08-10 18:20 | DVHPN2 ---
Progress Note Date Seen: Aug 10, 2024 Has the PT tested + for MRSA If YES, has PT been informed?: No Medical Necessity Reason Pt with a Central, PICC or Fol: Yes The following are medically ne: Central Line Subjective Patient reports: No new complaints, Feels better Review of Systems: HEENT:Normal, CVS:Normal, RESPIRATORY:Normal, GI:Normal, :Normal, MSK:Normal, NEURO:Normal Objective vital signs Vital Sign Date Time Temp Pulse Resp B/P (MAP) Pulse Ox O2 Delivery O2 Flow Rate FiO2 08/10/24 18:00 79 17 128/66 (86) 97 08/10/24 18:00 Nasal Cannula* 2 28 08/10/24 16:00 98.9 98.9 Total Intake and Output 08/09/24 08/09/24 08/10/24 15:00 23:00 07:00 Intake Total 388.125 ml 709.356 ml 1347.428 ml Balance 388.125 ml 709.356 ml 1347.428 ml medications Current Medications Medications Dose Ordered Sig/Mary Route Start Time Stop Time Status Last Admin Dose Admin Ipratropium [place] 0.5 mg Q4HPRN PRN NEB 08/06/24 21:15 08/08/24 19:16 0.5 MG Linezolid 300 ml @ 150 mls/hr Q12HR IV 08/06/24 22:00 08/10/24 09:06 150 MLS/HR Acetaminophen 500 mg Q8HP PRN PO 08/06/24 21:30 Piperacillin Sod/ Tazobactam Sod 100 ml @ 25 mls/hr Q12H IV 08/07/24 18:00 08/10/24 17:26 25 MLS/HR Ondansetron HCl 4 mg Q4HPRN PRN IV 08/08/24 06:00 08/10/24 17:26 4 MG Sodium Bicarbonate 75 ml/ Sodium Chloride 1,075 ml @ 120 mls/hr Q8H58M IV 08/08/24 10:45 08/10/24 10:55 120 MLS/HR Midodrine 10 mg TID@0600,1200,1800 PO 08/08/24 12:00 08/10/24 17:26 10 MG Levalbuterol HCl 0.625 mg Q6HR NEB 08/08/24 18:00 08/10/24 11:19 0.625 MG Throat Lozenges 1 nuno Q2HP PRN MT 08/09/24 13:00 08/09/24 14:37 1 NUNO Norepinephrine Bitartrate 250 ml @ 3.75 mls/hr Q24H IV 08/09/24 14:30 Vasopressin 20 units/Sodium Chloride 100 ml @ 9 mls/hr Q11H7M IV 08/09/24 14:30 08/10/24 01:33 9 MLS/HR Acetaminophen/ Hydrocodone Bitart 1 tab Q6HPRN PRN PO 08/09/24 20:00 Metoclopramide HCl 5 mg Q6HPRN PRN IV 08/10/24 04:30 08/10/24 06:00 5 MG Examination: GENERAL:Normal, HEENT:Normal, NECK:Normal, LUNGS:Abnormal, CVS:Normal, ABDOMEN:Normal, MSK:Abnormal, SKIN:Normal, NEURO:Normal, :Normal laboratory and microbiology Laboratory Tests 08/10/24 04:58 Test 08/10/24 04:58 Range/Units Serum Glucose 131 H 74-106 mg/dL Microbiology Date/Time Source Procedure Growth Status 08/09/24 17:30 Throat Nose/Throat Culture - Preliminary Resulted 08/09/24 02:07 Stool Stool Culture - Preliminary Resulted 08/09/24 02:07 Stool Shiga Toxin I & II - Final Resulted 08/07/24 03:03 Nose MRSA Screen - Final Complete 08/06/24 21:51 Blood Blood Culture - Preliminary NO GROWTH AFTER 72 HOURS OF INCUBATION. Resulted Problem List/Assessment/Plan Problem List/Assessment/Plan Acute kidney injury superimposed imposed on Chronic Kidney Disease secondary vasomotor nephropathy, FeNa <1% Toxic encephalopathy COPD exacerbation AFib Metabolic acidosis Jaundice Transaminitis Retroperitoneal hemorrhage Anemia of chronic kidney disease recs seen on HD today uf 1 L off levo oliguric Plan discussed with: Patient Dietary Evaluation Review Comments: 1) Advance to renal specific 40gm 2) Monitor wt trend, lab values, PO intake Expected Outcomes/Goals: To meet >75% estimated needs Fu 3-5 days Critical Care Time (mins): 36 DIVINA KENYON MD Aug 10, 2024 18:20
[2024-08-10 20:19] LABS: Lactic Acid w/Reflex 4.1 mmol/L (0.4-2.0)
[2024-08-10] MEDS: METOCLOPRAMIDE HCL 5MG/ml INJ 2ml VIAL ONE (21:59)
[2024-08-11] VITALS (103 sets, daily range): BP systolic 80–128; BP diastolic 49–83; PULSE 53–86; RESP 11–35; TEMP 96.8–99.3; O2SAT 91–100
[2024-08-11 07:08] LABS: Alanine Aminotransferase 38 U/L (7-40); Alkaline Phosphatase 80 U/L (46-116); Anion Gap 8 (5-15); BUN/Creatinine Ratio 19.5 (10.0-20.0); Bilirubin, Total 0.5 mg/dL (0.2-1.0); Carbon Dioxide 28 mmol/L (20-31); Chloride 99 mmol/L (98-107); Glucose 103 mg/dL (74-106); Magnesium 1.9 mg/dL (1.6-2.6)
[2024-08-11 07:09] LABS: Albumin 2.3 g/dL (3.2-4.8); Aspartate Aminotransferase 42 U/L (<34); Calcium 7.2 mg/dL (8.7-10.4); Sodium 135 mmol/L (136-145); Total Protein 4.2 g/dL (5.7-8.2)
[2024-08-11 07:12] LABS: Blood Urea Nitrogen 8 mg/dL (9-23)
[2024-08-11] MEDS: PANTOPRAZOLE 40 MG/10 ML VIAL INJ IV ONE (08:58)
[2024-08-11] MEDS: LOPERAMIDE HCL 2 MG CAP/TAB PO ONE (09:30)
[2024-08-11] MEDS ORDERED: LOPERAMIDE HCL 2 MG CAP/TAB PO PRN (09:30)
[2024-08-11 09:41] LABS: Basophils # (auto) 0 10 ^3/uL (0-0.2); Eosinophils # (auto) 0 10 ^3/uL (0-0.8); Hematocrit 29.8 % (41.0-53.0); Lymphocytes # (auto) 0.1 10 ^3/uL (0.4-5.4); Lymphocytes % (auto) 1.6 % (10.0-50.0); Mean Corpuscular Hemoglobin 31.1 pg (28.0-32.0); Mean Corpuscular Hgb Conc. 33.5 g/dL (32.0-36.0); Mean Corpuscular Volume 92.6 fL (80.0-100.0); Monocytes # (auto) 0.3 10 ^3/uL (0-1.3); Monocytes % (auto) 4.6 % (0.0-12.0); Neutrophils # (auto) 5.4 10 ^3/uL (1.6-8.6); Neutrophils % (auto) 93.8 % (37.0-80.0); Platelet Count (auto) 81 10^3/uL (140-450); Red Blood Cells 3.22 10^6/uL (4.5-5.90); White Blood Cell 5.8 10^3/uL (4.4-10.8)
[2024-08-11 09:46] LABS: Red Cell Distribution Width 21.2 % (11.8-14.3)
--- NOTE | 2024-08-11 11:45 | DVHPN2 ---
Progress Note Date Seen: Aug 11, 2024 Resident Creating Document: JILLIAN JOHNSON RESIDENT Has the PT tested + for MRSA If YES, has PT been informed?: No Medical Necessity Reason Pt with a Central, PICC or Fol: No The following are medically ne: Central Line Subjective Review of Systems Patient is seen today bedside at bedside Complained of ongoing nausea Patient had loose motion overnight, no blood Serum aminotransferase improved Serum creatinine back to normal limit Hemodialysis Objective vital signs Vital Sign Date Time Temp Pulse Resp B/P (MAP) Pulse Ox O2 Delivery O2 Flow Rate FiO2 08/11/24 11:14 62 18 100 08/11/24 11:08 Nasal Cannula 3.0 08/11/24 11:08 32 08/11/24 09:30 103/59 (74) 08/11/24 08:00 98.4 98.4 Total Intake and Output 08/10/24 08/10/24 08/11/24 15:00 23:00 07:00 Intake Total 1596 ml 1406 ml 1396 ml Output Total 150 ml 70 ml Balance 1596 ml 1256 ml 1326 ml medications Current Medications Medications Dose Ordered Sig/Mary Route Start Time Stop Time Status Last Admin Dose Admin Ipratropium [place] 0.5 mg Q4HPRN PRN NEB 08/06/24 21:15 08/11/24 11:08 0.5 MG Linezolid 300 ml @ 150 mls/hr Q12HR IV 08/06/24 22:00 08/11/24 08:59 150 MLS/HR Acetaminophen 500 mg Q8HP PRN PO 08/06/24 21:30 Piperacillin Sod/ Tazobactam Sod 100 ml @ 25 mls/hr Q12H IV 08/07/24 18:00 08/11/24 06:46 25 MLS/HR Ondansetron HCl 4 mg Q4HPRN PRN IV 08/08/24 06:00 08/10/24 17:26 4 MG Sodium Bicarbonate 75 ml/ Sodium Chloride 1,075 ml @ 120 mls/hr Q8H58M IV 08/08/24 10:45 08/11/24 06:46 120 MLS/HR Midodrine 10 mg TID@0600,1200,1800 PO 08/08/24 12:00 08/11/24 11:19 10 MG Levalbuterol HCl 0.625 mg Q6HR NEB 08/08/24 18:00 08/11/24 11:08 0.625 MG Throat Lozenges 1 nuno Q2HP PRN MT 08/09/24 13:00 08/09/24 14:37 1 NUNO Norepinephrine Bitartrate 250 ml @ 3.75 mls/hr Q24H IV 08/09/24 14:30 Vasopressin 20 units/Sodium Chloride 100 ml @ 9 mls/hr Q11H7M IV 08/09/24 14:30 08/10/24 01:33 9 MLS/HR Acetaminophen/ Hydrocodone Bitart 1 tab Q6HPRN PRN PO 08/09/24 20:00 Metoclopramide HCl 5 mg Q6HPRN PRN IV 08/10/24 04:30 08/10/24 21:59 5 MG Pantoprazole Sodium 40 mg DAILY IV 08/12/24 10:00 Loperamide HCl 2 mg Q6HPRN PRN PO 08/11/24 09:30 laboratory and microbiology Laboratory Tests 08/11/24 09:16 08/11/24 05:06 Test 08/11/24 05:06 Range/Units Serum Glucose 103 74-106 mg/dL Microbiology Date/Time Source Procedure Growth Status 08/09/24 17:30 Throat Nose/Throat Culture - Preliminary Resulted 08/09/24 02:07 Stool Stool Culture - Final Complete 08/09/24 02:07 Stool Shiga Toxin I & II - Final Complete 08/07/24 03:03 Nose MRSA Screen - Final Complete 08/06/24 21:51 Blood Blood Culture - Preliminary NO GROWTH AFTER 72 HOURS OF INCUBATION. Resulted Problem List/Assessment/Plan Problem List/Assessment/Plan Assessment and plan Syncope AFib with a RVR Acute hypoxic respiratory failure Retroperitoneal hemorrhage Coagulopathy Transaminitis FILIPPO Events Complained of ongoing nausea Patient had loose motion overnight, no blood Serum aminotransferase improved Serum creatinine back to normal limit Hemodialysis Plan Ordered loperamide PRN Continue pantoprazole and Zofran Maintain intake output Continue current IV antibiotic Vasopressors as needed HD as per Nephrology recommendation Other care as per primary team Monitor CBC, CMP Monitor PT INR Plan discussed with Dr. Lindsay Luna , nursing staff, Total time spent on patient evaluation, chart review, assessment and plan, discussion discussion >35 minutes Plan discussed with: Patient, Other (RN) Plan discussed with: Patient, Other (RN) My Orders My Orders Orders - JILLIAN JOHNSON Procedure Category Date Status Time Pantoprazole PHA 08/12/24 In Process (Protonix) 10:00 Loperamide Capsule PHA 08/11/24 In Process (Imodium Capsule) 09:30 Dietary Evaluation Review Comments: 1) Advance to renal specific 40gm 2) Monitor wt trend, lab values, PO intake Expected Outcomes/Goals: To meet >75% estimated needs Fu 3-5 days JILLIAN JOHNSON RESIDENT Aug 11, 2024 11:45
--- NOTE | 2024-08-11 13:10 | DVHPN2 ---
Reviewed: Care Plan, H&P, Labs, Medications, Previous Orders, Radiology Changes from previous H/P or p: No Changes Objective Vitals Vital Signs Date Time Temp Pulse Resp B/P (MAP) Pulse Ox O2 Delivery O2 Flow Rate FiO2 08/11/24 12:00 18 96 Nasal Cannula* 2 28 08/11/24 12:00 97.6 68 115/58 (77) 97.6 Intake/Output Intake and Output 08/11/24 07:00 Intake Total 4398 ml Output Total 220 ml Balance 4178 ml Intake Oral 80 ml IV Total 4318 ml Output Urine Total 220 ml # Bowel Movements 10 Medications Current Medications Medications Dose Ordered Sig/Mary Route Start Time Stop Time Status Last Admin Dose Admin Ipratropium [place] 0.5 mg Q4HPRN PRN NEB 08/06/24 21:15 08/11/24 11:08 0.5 MG Linezolid 300 ml @ 150 mls/hr Q12HR IV 08/06/24 22:00 08/11/24 08:59 150 MLS/HR Acetaminophen 500 mg Q8HP PRN PO 08/06/24 21:30 Piperacillin Sod/ Tazobactam Sod 100 ml @ 25 mls/hr Q12H IV 08/07/24 18:00 08/11/24 06:46 25 MLS/HR Ondansetron HCl 4 mg Q4HPRN PRN IV 08/08/24 06:00 08/10/24 17:26 4 MG Midodrine 10 mg TID@0600,1200,1800 PO 08/08/24 12:00 08/11/24 11:19 10 MG Levalbuterol HCl 0.625 mg Q6HR NEB 08/08/24 18:00 08/11/24 11:08 0.625 MG Throat Lozenges 1 nuno Q2HP PRN MT 08/09/24 13:00 08/09/24 14:37 1 NUNO Norepinephrine Bitartrate 250 ml @ 3.75 mls/hr Q24H IV 08/09/24 14:30 Vasopressin 20 units/Sodium Chloride 100 ml @ 9 mls/hr Q11H7M IV 08/09/24 14:30 08/10/24 01:33 9 MLS/HR Acetaminophen/ Hydrocodone Bitart 1 tab Q6HPRN PRN PO 08/09/24 20:00 Metoclopramide HCl 5 mg Q6HPRN PRN IV 08/10/24 04:30 08/10/24 21:59 5 MG Pantoprazole Sodium 40 mg DAILY IV 08/12/24 10:00 Loperamide HCl 2 mg Q6HPRN PRN PO 08/11/24 09:30 Laboratory Results Laboratory Tests 08/11/24 05:06 08/11/24 09:16 Chemistry Test 08/11/24 05:06 Albumin 2.3 g/dL (3.2-4.8) L Calcium Level 7.2 mg/dL (8.7-10.4) L Magnesium Level 1.9 mg/dL (1.6-2.6) Total Protein 4.2 g/dL (5.7-8.2) L Coagulation Test 08/10/24 16:37 Prothrombin Time 32.6 sec (9.3-11.8) H Prothrombin Time INR 3.48 (0.9-1.15) H Activated Partial Thromboplast Time 69.5 SEC (24.5-34.5) H LFT Test 08/11/24 05:06 Alanine Aminotransferase (ALT) 38 U/L (7-40) Alkaline Phosphatase 80 U/L (46-116) Aspartate Amino Transferase (AST) 42 U/L (<34) H Total Bilirubin 0.5 mg/dL (0.2-1.0) Urinalysis Test 08/07/24 11:15 Urine Color Dark-yellow (Yellow) Urine Clarity Turbid (Clear) H Urine pH 5.0 (5.0-9.0) Urine Specific [place] 1.020 (1.001-1.035) Urine Protein 1+ (Negative) H Urine Ketones 1+ (Negative) H Urine Blood Trace /uL (Negative) H Urine Nitrite Negative (Negative) Urine Bilirubin 1+ (Negative) Urine Urobilinogen 4 mg/dL (Negative) H Urine Leukocyte Esterase Negative /uL (Negative) Urine RBC 5 /hpf (0 - 3) Urine Microscopic WBC 12 /HPF (0-3) H Urine Squamous Epithelial Cells Few /hpf (<5) Urine Bacteria Few /hpf (None Seen) H Urine Creatinine 152.15 mg/dL (30.0-125.0) H Urine Protein/Creatinine Ratio 0.76 Urine Sodium 22 mmol/L (40-220) L Urine Glucose 1+ mg/dL (Normal) H Urine Total Protein 115.9 mg/dL (1-14) H Microbiology Microbiology Date/Time Source Procedure Growth Status 08/09/24 17:30 Throat Nose/Throat Culture - Preliminary Resulted 08/09/24 02:07 Stool Stool Culture - Final Complete 08/09/24 02:07 Stool Shiga Toxin I & II - Final Complete 08/07/24 03:03 Nose MRSA Screen - Final Complete 08/06/24 21:51 Blood Blood Culture - Preliminary NO GROWTH AFTER 72 HOURS OF INCUBATION. Resulted Labs and/or images reviewed: Labs reviewed by me, Image(s) reviewed by me Assessment/Plan Assessment/Plan Covering for resident physician Syncope AFib with a RVR Acute hypoxic respiratory failure Retroperitoneal hemorrhage Coagulopathy Transaminitis FILIPPO Patient is seen in [facility] Time spent 70 minutes Advanced care planning time 20 minutes Condition guarded New current management Plan discussed with: Patient Date of Service: Aug 11, 2024 Billing Provider: BRUCE JO MD Common Visit Codes: [id number] CARE 30-74 MIN BRUCE JO MD Aug 11, 2024 13:10
--- NOTE | 2024-08-11 18:01 | DVHPN2 ---
Progress Note Date Seen: Aug 11, 2024 Has the PT tested + for MRSA If YES, has PT been informed?: No Medical Necessity Reason Pt with a Central, PICC or Fol: No The following are medically ne: Central Line Subjective Patient reports: No new complaints Review of Systems: Deferred Objective vital signs Vital Sign Date Time Temp Pulse Resp B/P (MAP) Pulse Ox O2 Delivery O2 Flow Rate FiO2 08/11/24 16:45 59 14 106/54 (71) 98 08/11/24 16:00 Nasal Cannula* 2 28 08/11/24 16:00 97.0 97.0 Total Intake and Output 08/10/24 08/10/24 08/11/24 15:00 23:00 07:00 Intake Total 1596 ml 1406 ml 1396 ml Output Total 150 ml 70 ml Balance 1596 ml 1256 ml 1326 ml medications Current Medications Medications Dose Ordered Sig/Mary Route Start Time Stop Time Status Last Admin Dose Admin Ipratropium [place] 0.5 mg Q4HPRN PRN NEB 08/06/24 21:15 08/11/24 11:08 0.5 MG Linezolid 300 ml @ 150 mls/hr Q12HR IV 08/06/24 22:00 08/11/24 08:59 150 MLS/HR Acetaminophen 500 mg Q8HP PRN PO 08/06/24 21:30 Piperacillin Sod/ Tazobactam Sod 100 ml @ 25 mls/hr Q12H IV 08/07/24 18:00 08/11/24 17:06 25 MLS/HR Ondansetron HCl 4 mg Q4HPRN PRN IV 08/08/24 06:00 08/11/24 15:43 4 MG Midodrine 10 mg TID@0600,1200,1800 PO 08/08/24 12:00 08/11/24 17:05 10 MG Levalbuterol HCl 0.625 mg Q6HR NEB 08/08/24 18:00 08/11/24 11:08 0.625 MG Throat Lozenges 1 nuno Q2HP PRN MT 08/09/24 13:00 08/09/24 14:37 1 NUNO Norepinephrine Bitartrate 250 ml @ 3.75 mls/hr Q24H IV 08/09/24 14:30 Vasopressin 20 units/Sodium Chloride 100 ml @ 9 mls/hr Q11H7M IV 08/09/24 14:30 08/10/24 01:33 9 MLS/HR Acetaminophen/ Hydrocodone Bitart 1 tab Q6HPRN PRN PO 08/09/24 20:00 Metoclopramide HCl 5 mg Q6HPRN PRN IV 08/10/24 04:30 08/10/24 21:59 5 MG Pantoprazole Sodium 40 mg DAILY IV 08/12/24 10:00 Loperamide HCl 2 mg Q6HPRN PRN PO 08/11/24 09:30 laboratory and microbiology Laboratory Tests 08/11/24 09:16 08/11/24 05:06 Test 08/11/24 05:06 Range/Units Serum Glucose 103 74-106 mg/dL Microbiology Date/Time Source Procedure Growth Status 08/09/24 17:30 Throat Nose/Throat Culture - Preliminary Resulted 08/09/24 02:07 Stool Stool Culture - Final Complete 08/09/24 02:07 Stool Shiga Toxin I & II - Final Complete 08/07/24 03:03 Nose MRSA Screen - Final Complete 08/06/24 21:51 Blood Blood Culture - Preliminary NO GROWTH AFTER 72 HOURS OF INCUBATION. Resulted Problem List/Assessment/Plan Problem List/Assessment/Plan Acute kidney injury superimposed imposed on Chronic Kidney Disease secondary vasomotor nephropathy, FeNa <1% Toxic encephalopathy COPD exacerbation AFib Metabolic acidosis Jaundice Transaminitis Retroperitoneal hemorrhage Anemia of chronic kidney disease recs Last HD was on Tuesday Evaluate [employer] needs daily uf 1 L off levo oliguric Plan discussed with: Patient Dietary Evaluation Review Comments: 1) Advance to renal specific 40gm 2) Monitor wt trend, lab values, PO intake Expected Outcomes/Goals: To meet >75% estimated needs Fu 3-5 days DIVINA KENYON MD Aug 11, 2024 18:01
--- NOTE | 2024-08-11 23:58 | DVHINCON2 ---
Date of service: Aug 11, [address] Brown Reason for Consultation Acute hypoxic respiratory failure and pleural effusion. History of Present Illness A 73-year-old man with past medical history of COPD, hypertension, AFib, questionable CHF, and questionable CKD who presented to ED on 08/06/24 with complaints of syncopal episode, onset 4 hours prior to presentation. Patient was witnessed by daughter to pass out, and per patient he passed out for 10 minutes. Patient also reported he had been having shortness of breath at the same time; also associated symptoms of cough, nausea, vomiting and chills. On presentation to ED, patient was noted to be tachypneic and tachycardic. Patient reported recent admission to [facility] for pneumonia and sepsis. Patient was admitted for further care, and pulmonary consultation is requested for evaluation and management of acute hypoxic respiratory failure and pleural effusion. Review of Systems: 14-point review of systems negative unless otherwise noted above. Past Medical History: COPD, hypertension, AFib, questionable CHF, questionable CKD Past Surgical History: Denies Medications: Reviewed. Allergies: No known drug allergies. Family History: Mother with cancer. No family history of premature CAD. No family history of lung disorders. Social History: Ex-smoker, quit 4 months ago - used to smoke for more than 20 years, History of alcohol use disorder but not actively consuming. No illicit drug use. Family History: FH: cancer G8 MOTHER Allergies: Coded Allergies: NO KNOWN ALLERGIES (Unverified , 08/06/24) Current Medications Current Medications Medications (Trade) Dose Ordered Sig/Mary Route PRN Reason Start Time Stop Time Status Last Admin Pantoprazole Sodium (Protonix) 40 mg DAILY IV 08/12/24 10:00 Loperamide HCl (Imodium Capsule) 2 mg Q6HPRN PRN PO FOR DIARRHEA 08/11/24 09:30 Vital Signs Vital Signs Date Time Temp Pulse Resp B/P (MAP) Pulse Ox O2 Delivery O2 Flow Rate FiO2 08/11/24 22:45 57 22 92/62 (72) 98 08/11/24 22:00 Nasal Cannula* 2 28 08/11/24 20:00 97.6 97.6 Physical Exam Gen.: Patient lying in bed in no apparent distress. On supplemental oxygen. Head: Normocephalic, atraumatic. Eyes: EOMI/PERRLA. Ears: Normal hearing. Normal anatomy. Neck/trachea: Trachea midline, supple. Nose: Normal external anatomy. Mouth: Moist mucous membranes. Chest: Decreased air entry bilaterally. No wheezing or rhonchi. Cardiovascular: Positive S1, positive S2. Regular rate and rhythm. Abdomen: Positive bowel sounds in all 4 quadrants. Soft, non-tender, non- distended. : Deferred. Rectal: Deferred. Skin: Warm, dry. Intact. Extremities: 2+ radial pulses bilaterally. No lower extremity edema. Neuro: Awake, alert, oriented x3. No gross motor or sensory deficits. Cranial nerves II through XII intact. Gait not assessed. Labs/Diagnostic Data Labs Test 08/11/24 09:16 08/11/24 05:06 08/10/24 19:47 08/10/24 16:37 Range/Units White Blood Count 5.8 4.4-10.8 10^3/uL Red Blood Count 3.22 L 4.5-5.90 10^6/uL Hemoglobin 10.0 L 13.5-17.5 g/dL Hematocrit 29.8 L 41.0-53.0 % Mean Corpuscular Volume 92.6 80.0-100.0 fL Mean Corpuscular Hemoglobin 31.1 28.0-32.0 pg Mean Corpuscular Hemoglobin Concent 33.5 32.0-36.0 g/dL Red Cell Distribution Width 21.2 H 11.8-14.3 % Platelet Count 81 L 140-450 10^3/uL Mean Platelet Volume 9.6 6.9-10.8 fL Neutrophils (%) (Auto) 93.8 H 37.0-80.0 % Lymphocytes (%) (Auto) 1.6 L 10.0-50.0 % Monocytes (%) (Auto) 4.6 0.0-12.0 % Eosinophils (%) (Auto) 0.0 0.0-7.0 % Basophils (%) (Auto) 0.0 0.0-2.0 % Neutrophils # (Auto) 5.4 1.6-8.6 10 ^3/uL Lymphocytes # (Auto) 0.1 L 0.4-5.4 10 ^3/uL Monocytes # (Auto) 0.3 0-1.3 10 ^3/uL Eosinophils # (Auto) 0 0-0.8 10 ^3/uL Basophils # (Auto) 0 0-0.2 10 ^3/uL Nucleated Red Blood Cells 4.0 % Sodium Level 135 #L 136-145 mmol/L Potassium Level 5.0 3.5-5.1 mmol/L Chloride Level 99 98-107 mmol/L Carbon Dioxide Level 28 20-31 mmol/L Anion Gap 8 5-15 Blood Urea Nitrogen 8 #L 9-23 mg/dL Creatinine 0.41 #L 0.700-1.30 mg/dL Glomerular Filtration Rate Calc 115 >90 mL/min BUN/Creatinine Ratio 19.5 10.0-20.0 Serum Glucose 103 74-106 mg/dL Calcium Level 7.2 L 8.7-10.4 mg/dL Magnesium Level 1.9 1.6-2.6 mg/dL Total Bilirubin 0.5 0.2-1.0 mg/dL Aspartate Amino Transferase (AST) 42 H <34 U/L Alanine Aminotransferase (ALT) 38 7-40 U/L Alkaline Phosphatase 80 46-116 U/L Total Protein 4.2 L 5.7-8.2 g/dL Albumin 2.3 L 3.2-4.8 g/dL Lactic Acid Level 4.1 *H 0.4-2.0 mmol/L Prothrombin Time 32.6 H 9.3-11.8 sec Prothrombin Time INR 3.48 H 0.9-1.15 Activated Partial Thromboplast Time 69.5 H 24.5-34.5 SEC Test 08/10/24 04:58 08/09/24 17:30 08/09/24 02:07 08/08/24 12:03 Range/Units Lactate Dehydrogenase 637 H 120-246 U/L Group A Streptococcus Rapid Negative Stool Occult Blood Negative Negative Stool Occult Blood Sample #3 Negative Stool for White Cells Rare Troponin I High Sensitivity 20 </=54 ng/L Test 08/08/24 09:23 08/07/24 18:15 08/07/24 11:15 08/07/24 04:42 Range/Units Differential Total Cells Counted 100.0 100 Neutrophils % (Manual) 90 H 37.0-80.0 Band Neutrophils % (Manual) 0 Lymphocytes % (Manual) 2 L 10.0-50.0 Monocytes % (Manual) 7 0-12 Eosinophils % (Manual) 0 0-7 Basophils % (Manual) 0 0.0-2.0 Metamyelocytes % (manual) 1 Myelocytes % (Manual) 0 Promyelocytes % (Manual) 0 Blast Cells % (Manual) 0 Reactive Lymphocytes 0 Platelet Estimate Adequate Anisocytosis (manual) Slight POC Glucose 157 H 70-106 mg/dl Urine Color Dark-yellow Yellow Urine Clarity Turbid H Clear Urine pH 5.0 5.0-9.0 Urine Specific [place] 1.020 1.001-1.035 Urine Protein 1+ H Negative Urine Ketones 1+ H Negative Urine Blood Trace H Negative /uL Urine Nitrite Negative Negative Urine Bilirubin 1+ Negative Urine Urobilinogen 4 H Negative mg/dL Urine Leukocyte Esterase Negative Negative /uL Urine RBC 5 0 - 3 /hpf Urine Microscopic WBC 12 H 0-3 /HPF Urine Squamous Epithelial Cells Few <5 /hpf Urine Bacteria Few H None Seen /hpf Urine Creatinine 152.15 H 30.0-125.0 mg/dL Urine Protein/Creatinine Ratio 0.76 Urine Sodium 22 L 40-220 mmol/L Urine Glucose 1+ H Normal mg/dL Urine Total Protein 115.9 H 1-14 mg/dL Clumped Platelets Few Large Platelets Few Phosphorus Level 7.2 H 2.4-5.1 mg/dL Tumor Marker Alpha Fetoprotein <1.8 0.0-8.4 ng/mL Carcinoembryonic Antigen 2.73 <=5.0 ng/mL CA 19-9 Antigen 308 H 0-35 U/mL Vitamin D 25-Hydroxy 32.0 30.0-100 ng/mL Parathyroid Hormone (Intact) 256.2 H 18.4-80.1 pg/mL Hepatitis B Surface Antigen Negative Negative Hepatitis C Antibody Negative Negative Test 08/07/24 03:03 08/06/24 21:45 08/06/24 21:07 08/06/24 18:15 Range/Units Influenza Type A Antigen Negative Negative Influenza Type B Antigen Negative Negative SARS-CoV-2 Antigen (Rapid) Negative NEGATIVE Blood Gas Specimen Type Arterial Blood Gas Sample Site Right radial Blood Gas Patient Temperature 37.0 Arterial Blood Date Drawn [id number] Arterial Blood pH 7.433 7.350-7.450 Arterial Blood Partial Pressure CO2 19.2 *L 35.0-48.0 mmHg Arterial Blood Partial Pressure O2 102.5 83.0-108.0 mmHg Arterial Blood HCO3 12.5 L 21.0-28.0 mmol/L Arterial Blood Oxygen Saturation 97.6 94.0-98.0 % Arterial Blood Base Excess -9.3 L -2.0-3.0 mmol/L Arterial Blood Oxyhemoglobin 96.4 94.0-98.0 % Arterial Blood Carboxyhemoglobin 0.7 0.5-1.5 % Arterial Blood Methemoglobin 0.5 0.0-1.5 % Vinny Test Yes Blood Gas Total Hemoglobin 13.10 L 13.5-17.5 g/dL Blood Gas Liter Flow 3.00 Blood Gas Modality Nasal cannula Blood Gas Spontaneous Rate 28 FiO2 % 32.0 Specimen Drawn By Deisy tirado Blood Gas Critical Value Read Back Yes Blood Gas Notified Whom aparna Breaux md Blood Gas Notified Time [id number] Blood Gas Notified By Deisy madden rt Direct Bilirubin 2.8 H <0.3 mg/dL Hemoglobin A1c 4.7 <5.7 % A1C B-Type Natriuretic Peptide 50.58 0-100 pg/mL Vitamin B12 Level 1589 H 211-911 pg/mL Folic Acid 14.61 >5.38 ng/mL Thyroid Stimulating Hormone (TSH) 7.08 H 0.55-4.78 uIU/mL Microbiology Date/Time Source Procedure Growth Status 08/09/24 17:30 Throat Nose/Throat Culture - Preliminary Resulted 08/09/24 02:07 Stool Stool Culture - Final Complete 08/09/24 02:07 Stool Shiga Toxin I & II - Final Complete 08/07/24 03:03 Nose MRSA Screen - Final Complete 08/06/24 21:51 Blood Blood Culture - Final NO GROWTH AFTER 5 DAYS OF INCUBATION. Complete Assessment Impression: Acute hypoxic respiratory failure Dependence on supplemental oxygen Atrial fibrillation with rapid ventricular response Retroperitoneal hemorrhage Coagulopathy Transaminitis Acute kidney injury on chronic kidney disease Hx of nicotine dependence Plan: Supplemental oxygen 3 LPM NC Titrate to keep O2 sats above 92%. Taper O2 as tolerated. Liver ultrasound notable for small right pleural effusion, fatty liver, trace pericholecystic fluid and 5 cm right renal cyst. On amiodarone drip. Off bicarb drip. Continue antibiotics Incentive spirometry Ryan cath for HD placed on 08/09 HD yesterday (08/10) Follow up GI recommendations Monitor LFTs. Monitor hemoglobin HD per Nephrology Follow up Nephrology recommendations. Monitor renal function. Monitor electrolytes. Supplement as necessary. Monitor ins and outs. DVT prophylaxis. Prognosis: Poor given patient's multiple co-morbidities. Condition: Critical Rest of plan per hospitalist and other consultants. A total of 35 minutes of critical care time was spent reviewing the patient record, examining the patient, making a diagnostic and therapeutic plan, discussing this plan with the medical personnel, following up on diagnostic studies and following the patient for clinical stability excluding any and all procedures. At least 50% of this time was spent in direct, [id number] contact. Thank you Dr. Brown for allowing me to participate in this patient's care. Further recommendations will depend on the patient's clinical course. Please do not hesitate to contact me if you have any questions or concerns. This medical document was created using an electronic medical record system with [employer] dictation system. Although these documentations are being carefully reviewed, there may still be some phonetic and typographical changes. The errors are purely typographical, due to imperfection on the software program, and do not reflect any compromise in the patient's medical care. Plan discussed with: Patient, Other (SHERRON Sheridan/Dr. Brown) MONICA LEON MD Aug 11, 2024 23:58
[2024-08-12] VITALS (102 sets, daily range): BP systolic 79–123; BP diastolic 47–78; PULSE 62–95; RESP 12–31; TEMP 96.7–97.5; O2SAT 92–100
[2024-08-12 04:56] LABS: Basophils # (auto) 0 10 ^3/uL (0-0.2); Basophils % (auto) 0.3 % (0.0-2.0); Eosinophils # (auto) 0 10 ^3/uL (0-0.8); Hematocrit 34.8 % (41.0-53.0); Hemoglobin 11.7 g/dL (13.5-17.5); Lymphocytes # (auto) 0.2 10 ^3/uL (0.4-5.4); Lymphocytes % (auto) 2.8 % (10.0-50.0); Mean Corpuscular Hemoglobin 31.4 pg (28.0-32.0); Mean Corpuscular Hgb Conc. 33.6 g/dL (32.0-36.0); Mean Corpuscular Volume 93.6 fL (80.0-100.0); Monocytes # (auto) 0.2 10 ^3/uL (0-1.3); Monocytes % (auto) 3.5 % (0.0-12.0); Neutrophils # (auto) 6.4 10 ^3/uL (1.6-8.6); Neutrophils % (auto) 93.4 % (37.0-80.0); Nucleated Red Blood Cells % 2.6 %; Platelet Count (auto) 79 10^3/uL (140-450); Red Blood Cells 3.72 10^6/uL (4.5-5.90); Red Cell Distribution Width 22.1 % (11.8-14.3); White Blood Cell 6.8 10^3/uL (4.4-10.8)
[2024-08-12 05:19] LABS: Anion Gap 21 (5-15); BUN/Creatinine Ratio 11.3 (10.0-20.0); Carbon Dioxide 23 mmol/L (20-31); Glucose 96 mg/dL (74-106); Potassium 3.9 mmol/L (3.5-5.1); Sodium 139 mmol/L (136-145)
[2024-08-12 05:21] LABS: Alanine Aminotransferase 90 U/L (7-40); Albumin 2.4 g/dL (3.2-4.8); Aspartate Aminotransferase 51 U/L (<34); Bilirubin, Total 6.4 mg/dL (0.2-1.0); Blood Urea Nitrogen 51 mg/dL (9-23); Calcium 7.8 mg/dL (8.7-10.4); Chloride 95 mmol/L (98-107); Total Protein 3.8 g/dL (5.7-8.2)
[2024-08-12 05:30] LABS: Alkaline Phosphatase 1041 U/L (46-116)
[2024-08-12] MEDS: PANTOPRAZOLE 40 MG/10 ML VIAL INJ IV SCH (09:12)
--- NOTE | 2024-08-12 10:23 | DVHPN2 ---
Reviewed: Care Plan, H&P, Labs, Medications, Previous Orders, Radiology Changes from previous H/P or p: No Changes Objective Vitals Vital Signs Date Time Temp Pulse Resp B/P (MAP) Pulse Ox O2 Delivery O2 Flow Rate FiO2 08/12/24 10:00 68 24 120/72 (88) 98 08/12/24 10:00 Nasal Cannula* 2 28 08/12/24 08:00 97.1 97.1 Intake/Output Intake and Output 08/12/24 07:00 Intake Total 5428 ml Output Total 115 ml Balance 5313 ml Intake Oral 180 ml IV Total 5248 ml Output Urine Total 115 ml # Bowel Movements 1 Medications Current Medications Medications Dose Ordered Sig/Mary Route Start Time Stop Time Status Last Admin Dose Admin Ipratropium [place] 0.5 mg Q4HPRN PRN NEB 08/06/24 21:15 08/12/24 06:10 0.5 MG Linezolid 300 ml @ 150 mls/hr Q12HR IV 08/06/24 22:00 08/12/24 09:12 150 MLS/HR Acetaminophen 500 mg Q8HP PRN PO 08/06/24 21:30 Piperacillin Sod/ Tazobactam Sod 100 ml @ 25 mls/hr Q12H IV 08/07/24 18:00 08/12/24 05:30 25 MLS/HR Ondansetron HCl 4 mg Q4HPRN PRN IV 08/08/24 06:00 08/11/24 15:43 4 MG Midodrine 10 mg TID@0600,1200,1800 PO 08/08/24 12:00 08/12/24 06:08 10 MG Levalbuterol HCl 0.625 mg Q6HR NEB 08/08/24 18:00 08/12/24 06:10 0.625 MG Throat Lozenges 1 nuno Q2HP PRN MT 08/09/24 13:00 08/09/24 14:37 1 NUNO Norepinephrine Bitartrate 250 ml @ 3.75 mls/hr Q24H IV 08/09/24 14:30 08/11/24 21:56 3.75 MLS/HR Vasopressin 20 units/Sodium Chloride 100 ml @ 9 mls/hr Q11H7M IV 08/09/24 14:30 08/10/24 01:33 9 MLS/HR Acetaminophen/ Hydrocodone Bitart 1 tab Q6HPRN PRN PO 08/09/24 20:00 Metoclopramide HCl 5 mg Q6HPRN PRN IV 08/10/24 04:30 08/10/24 21:59 5 MG Pantoprazole Sodium 40 mg DAILY IV 08/12/24 10:00 08/12/24 09:12 40 MG Loperamide HCl 2 mg Q6HPRN PRN PO 08/11/24 09:30 Laboratory Results Laboratory Tests 08/12/24 04:41 Chemistry Test 08/12/24 04:41 Albumin 2.4 g/dL (3.2-4.8) L Calcium Level 7.8 mg/dL (8.7-10.4) L Total Protein 3.8 g/dL (5.7-8.2) L LFT Test 08/12/24 04:41 Alanine Aminotransferase (ALT) 90 U/L (7-40) H Alkaline Phosphatase 1041 U/L (46-116) H Aspartate Amino Transferase (AST) 51 U/L (<34) H Total Bilirubin 6.4 mg/dL (0.2-1.0) H Urinalysis Test 08/07/24 11:15 Urine Color Dark-yellow (Yellow) Urine Clarity Turbid (Clear) H Urine pH 5.0 (5.0-9.0) Urine Specific [place] 1.020 (1.001-1.035) Urine Protein 1+ (Negative) H Urine Ketones 1+ (Negative) H Urine Blood Trace /uL (Negative) H Urine Nitrite Negative (Negative) Urine Bilirubin 1+ (Negative) Urine Urobilinogen 4 mg/dL (Negative) H Urine Leukocyte Esterase Negative /uL (Negative) Urine RBC 5 /hpf (0 - 3) Urine Microscopic WBC 12 /HPF (0-3) H Urine Squamous Epithelial Cells Few /hpf (<5) Urine Bacteria Few /hpf (None Seen) H Urine Creatinine 152.15 mg/dL (30.0-125.0) H Urine Protein/Creatinine Ratio 0.76 Urine Sodium 22 mmol/L (40-220) L Urine Glucose 1+ mg/dL (Normal) H Urine Total Protein 115.9 mg/dL (1-14) H Microbiology Microbiology Date/Time Source Procedure Growth Status 08/09/24 17:30 Throat Nose/Throat Culture - Final Complete 08/09/24 02:07 Stool Stool Culture - Final Complete 08/09/24 02:07 Stool Shiga Toxin I & II - Final Complete 08/07/24 03:03 Nose MRSA Screen - Final Complete 08/06/24 21:51 Blood Blood Culture - Final NO GROWTH AFTER 5 DAYS OF INCUBATION. Complete Labs and/or images reviewed: Labs reviewed by me, Image(s) reviewed by me Assessment/Plan Assessment/Plan Covering for resident physician Syncope AFib with a RVR Acute hypoxic respiratory failure Retroperitoneal hemorrhage Coagulopathy Transaminitis FILIPPO Patient is seen in [facility] Time spent 65 minutes Advanced care planning time 20 minutes Condition guarded New current management Plan discussed with: Patient Date of Service: Aug 12, 2024 Billing Provider: BRUCE JO MD Common Visit Codes: [id number] CARE 30-74 MIN BRUCE JO MD Aug 12, 2024 10:23
--- NOTE | 2024-08-12 10:44 | MEDREC ---
[facility] Intervention Section I [facility] Intervention: Deescalate AB based on CS, Review courses of therapy (MYELOSUPPRESSION OR BONE MARROW SUPPRESSION, INCLUDING THROMBOCYTOPENIA, HAS BEEN REPORTED IN PATIENTS RECEIVING LINEZOLID / PIPERACILLIN-TAZOBACTAM. TAKING INTO ACCOUNT THE FINAL CULTURE RESULTS AND THE PLATELET COUNT PLEASE CONSIDER DISCONTINUING LINEZOLID AND SWITCH ZOSYN TO ANOTHER ANTIBIOTIC IF CLINICALLY RELEVANT ) JANETT LUGO PHARMACIST Aug 12, 2024 10:44
[2024-08-12] MEDS: PROMETHAZINE HCL 6.25 MG/5 ML ORAL SYRUP PO PRN (11:54)
--- NOTE | 2024-08-12 15:43 | DVHPN2 ---
Progress Note Date Seen: Aug 12, 2024 Has the PT tested + for MRSA If YES, has PT been informed?: No Medical Necessity Reason Pt with a Central, PICC or Fol: No The following are medically ne: Central Line Subjective Patient reports: No new complaints Review of Systems: Deferred Objective vital signs Vital Sign Date Time Temp Pulse Resp B/P (MAP) Pulse Ox O2 Delivery O2 Flow Rate FiO2 08/12/24 14:30 119/76 08/12/24 14:00 19 94 Nasal Cannula* 2 28 08/12/24 14:00 70 08/12/24 12:00 96.7 96.7 Total Intake and Output 08/11/24 08/11/24 08/12/24 15:00 23:00 07:00 Intake Total 1096 ml 1182 ml 3150 ml Output Total 75 ml 40 ml Balance 1096 ml 1107 ml 3110 ml medications Current Medications Medications Dose Ordered Sig/Mary Route Start Time Stop Time Status Last Admin Dose Admin Ipratropium [place] 0.5 mg Q4HPRN PRN NEB 08/06/24 21:15 08/12/24 11:52 0.5 MG Linezolid 300 ml @ 150 mls/hr Q12HR IV 08/06/24 22:00 08/12/24 09:12 150 MLS/HR Acetaminophen 500 mg Q8HP PRN PO 08/06/24 21:30 Piperacillin Sod/ Tazobactam Sod 100 ml @ 25 mls/hr Q12H IV 08/07/24 18:00 08/12/24 05:30 25 MLS/HR Ondansetron HCl 4 mg Q4HPRN PRN IV 08/08/24 06:00 Hold 08/11/24 15:43 4 MG Midodrine 10 mg TID@0600,1200,1800 PO 08/08/24 12:00 08/12/24 11:52 10 MG Levalbuterol HCl 0.625 mg Q6HR NEB 08/08/24 18:00 08/12/24 11:52 0.625 MG Throat Lozenges 1 nuno Q2HP PRN MT 08/09/24 13:00 08/09/24 14:37 1 NUNO Norepinephrine Bitartrate 250 ml @ 3.75 mls/hr Q24H IV 08/09/24 14:30 08/11/24 21:56 3.75 MLS/HR Vasopressin 20 units/Sodium Chloride 100 ml @ 9 mls/hr Q11H7M IV 08/09/24 14:30 08/10/24 01:33 9 MLS/HR Acetaminophen/ Hydrocodone Bitart 1 tab Q6HPRN PRN PO 08/09/24 20:00 Metoclopramide HCl 5 mg Q6HPRN PRN IV 08/10/24 04:30 08/10/24 21:59 5 MG Pantoprazole Sodium 40 mg DAILY IV 08/12/24 10:00 08/12/24 09:12 40 MG Loperamide HCl 2 mg Q6HPRN PRN PO 08/11/24 09:30 Promethazine HCl 25 mg Q6HP PRN PO 08/12/24 10:30 08/12/24 11:54 25 MG laboratory and microbiology Laboratory Tests 08/12/24 04:41 Test 08/12/24 04:41 Range/Units Serum Glucose 96 74-106 mg/dL Microbiology Date/Time Source Procedure Growth Status 08/09/24 17:30 Throat Nose/Throat Culture - Final Complete 08/09/24 02:07 Stool Stool Culture - Final Complete 08/09/24 02:07 Stool Shiga Toxin I & II - Final Complete 08/07/24 03:03 Nose MRSA Screen - Final Complete 08/06/24 21:51 Blood Blood Culture - Final NO GROWTH AFTER 5 DAYS OF INCUBATION. Complete Problem List/Assessment/Plan Problem List/Assessment/Plan Acute kidney injury superimposed imposed on Chronic Kidney Disease secondary vasomotor nephropathy, FeNa <1% Toxic encephalopathy COPD exacerbation AFib Metabolic acidosis Jaundice Transaminitis Retroperitoneal hemorrhage Anemia of chronic kidney disease recs Last HD was on Tuesday,next HD tuesday on levophed oliguric Plan discussed with: Patient Dietary Evaluation Review Comments: 1) Advance to renal specific 40gm 2) Monitor wt trend, lab values, PO intake Expected Outcomes/Goals: To meet >75% estimated needs Fu 3-5 days DIVINA KENYON MD Aug 12, 2024 15:43
--- NOTE | 2024-08-12 23:43 | DVHPN2 ---
Progress Note - Dictate Date Seen: Aug 12, 2024 Has the PT tested + for MRSA If YES, has PT been informed?: No Medical Necessity Reason Pt with a Central, PICC or Fol: No The following are medically ne: Central Line Subjective Patient seen and examined at bedside. Remains on supplemental oxygen Overnight events reviewed. vital signs Vital Sign Date Time Temp Pulse Resp B/P (MAP) Pulse Ox O2 Delivery O2 Flow Rate FiO2 08/12/24 23:00 82 23 100/66 (77) 99 08/12/24 22:00 Nasal Cannula* 2 08/12/24 20:00 97.0 97.0 Total Intake and Output 08/11/24 08/11/24 08/12/24 15:00 23:00 07:00 Intake Total 1096 ml 1182 ml 3150 ml Output Total 75 ml 40 ml Balance 1096 ml 1107 ml 3110 ml medications Current Medications Medications Dose Ordered Sig/Mary Route Start Time Stop Time Status Last Admin Dose Admin Ipratropium [place] 0.5 mg Q4HPRN PRN NEB 08/06/24 21:15 08/12/24 18:08 0.5 MG Linezolid 300 ml @ 150 mls/hr Q12HR IV 08/06/24 22:00 08/12/24 21:41 150 MLS/HR Acetaminophen 500 mg Q8HP PRN PO 08/06/24 21:30 Piperacillin Sod/ Tazobactam Sod 100 ml @ 25 mls/hr Q12H IV 08/07/24 18:00 08/12/24 17:04 25 MLS/HR Ondansetron HCl 4 mg Q4HPRN PRN IV 08/08/24 06:00 Hold 08/11/24 15:43 4 MG Midodrine 10 mg TID@0600,1200,1800 PO 08/08/24 12:00 08/12/24 17:04 10 MG Levalbuterol HCl 0.625 mg Q6HR NEB 08/08/24 18:00 08/12/24 18:09 0.625 MG Throat Lozenges 1 nuno Q2HP PRN MT 08/09/24 13:00 08/09/24 14:37 1 NUNO Norepinephrine Bitartrate 250 ml @ 3.75 mls/hr Q24H IV 08/09/24 14:30 08/11/24 21:56 3.75 MLS/HR Vasopressin 20 units/Sodium Chloride 100 ml @ 9 mls/hr Q11H7M IV 08/09/24 14:30 08/10/24 01:33 9 MLS/HR Acetaminophen/ Hydrocodone Bitart 1 tab Q6HPRN PRN PO 08/09/24 20:00 Metoclopramide HCl 5 mg Q6HPRN PRN IV 08/10/24 04:30 08/10/24 21:59 5 MG Pantoprazole Sodium 40 mg DAILY IV 08/12/24 10:00 08/12/24 09:12 40 MG Loperamide HCl 2 mg Q6HPRN PRN PO 08/11/24 09:30 Promethazine HCl 25 mg Q6HP PRN PO 08/12/24 10:30 08/12/24 11:54 25 MG objective Gen.: Patient lying in bed in no apparent distress. On supplemental oxygen. Head: Normocephalic, atraumatic. Eyes: EOMI/PERRLA. Ears: Normal hearing. Normal anatomy. Neck/trachea: Trachea midline, supple. Nose: Normal external anatomy. Mouth: Moist mucous membranes. Chest: Decreased air entry bilaterally. No wheezing or rhonchi. Cardiovascular: Positive S1, positive S2. Regular rate and rhythm. Abdomen: Positive bowel sounds in all 4 quadrants. Soft, non-tender, non- distended. : Deferred. Rectal: Deferred. Skin: Warm, dry. Intact. Extremities: 2+ radial pulses bilaterally. No lower extremity edema. Neuro: Awake, alert, oriented x3. No gross motor or sensory deficits. Cranial nerves II through XII intact. Gait not assessed. laboratory and microbiology Laboratory Tests 08/12/24 04:41 Test 08/12/24 04:41 Range/Units Serum Glucose 96 74-106 mg/dL Assessment/Plan Impression: Acute hypoxic respiratory failure Dependence on supplemental oxygen Atrial fibrillation with rapid ventricular response Retroperitoneal hemorrhage Coagulopathy Transaminitis Acute kidney injury on chronic kidney disease Hx of nicotine dependence Events: Remains on supplemental oxygen, 3 LPM NC Taper O2 as tolerated Pressors for hemodynamic support On Levophed Titrate to keep mean arterial pressure greater than 65 mmHg. On amiodarone Continue antibiotics Incentive spirometry HD per Nephrology Follow up Nephrology recommendations. Monitor renal function. Monitor electrolytes. Supplement as necessary. Labs and imaging reviewed. Rest of plan as noted below. Plan: Supplemental oxygen Titrate to keep O2 sats above 92%. On pressors for hemodynamic support Titrate to keep mean arterial pressure greater than 65 mmHg. Liver ultrasound notable for small right pleural effusion, fatty liver, trace pericholecystic fluid and 5 cm right renal cyst. On amiodarone Continue antibiotics Incentive spirometry Ryan cath for HD placed on 08/09 HD per Nephrology Follow up GI recommendations Monitor LFTs. Monitor hemoglobin HD per Nephrology Follow up Nephrology recommendations. Monitor renal function. Monitor electrolytes. Supplement as necessary. Monitor ins and outs. DVT prophylaxis. Prognosis: Poor given patient's multiple co-morbidities. Condition: Critical Rest of plan per hospitalist and other consultants. A total of 35 minutes of critical care time was spent reviewing the patient record, examining the patient, making a diagnostic and therapeutic plan, discussing this plan with the medical personnel, following up on diagnostic studies and following the patient for clinical stability excluding any and all procedures. At least 50% of this time was spent in direct, [id number] contact. Thank you Dr. Brown for allowing me to participate in this patient's care. Further recommendations will depend on the patient's clinical course. Please do not hesitate to contact me if you have any questions or concerns. This medical document was created using an electronic medical record system with [employer] dictation system. Although these documentations are being carefully reviewed, there may still be some phonetic and typographical changes. The errors are purely typographical, due to imperfection on the software program, and do not reflect any compromise in the patient's medical care. Dietary Evaluation Review Comments: 1) Advance to renal specific 40gm 2) Monitor wt trend, lab values, PO intake Expected Outcomes/Goals: To meet >75% estimated needs Fu 3-5 days Plan discussed with: Patient, Other (SHERRON Sheridan) Critical Care Time(min): 35 MONICA LEON MD Aug 12, 2024 23:43
[2024-08-13] VITALS (72 sets, daily range): BP systolic 39–257; BP diastolic 14–170; PULSE 74–147; RESP 9–51; TEMP 96.4–98.5; O2SAT 16–100
--- NOTE | 2024-08-13 00:08 | DVHPN2 ---
Progress Note - Dictate Date Seen: Aug 13, 2024 (Late entry Patient was seen at 5:00 p.m. on 08/12) Has the PT tested + for MRSA If YES, has PT been informed?: No Medical Necessity Reason Pt with a Central, PICC or Fol: No The following are medically ne: Central Line Subjective No new complaints Patient was sleeping comfortably No prior endoscopy or colonoscopy Patient's mother had cancer of unknown primary vital signs Vital Sign Date Time Temp Pulse Resp B/P (MAP) Pulse Ox O2 Delivery O2 Flow Rate FiO2 08/12/24 23:00 82 23 100/66 (77) 99 08/12/24 22:00 Nasal Cannula* 2 28 08/12/24 20:00 97.0 97.0 Total Intake and Output 08/12/24 08/12/24 08/13/24 15:00 23:00 07:00 Intake Total 300 ml 226.00 ml Output Total 50 ml Balance 300 ml 176.00 ml medications Current Medications Medications Dose Ordered Sig/Mary Route Start Time Stop Time Status Last Admin Dose Admin Ipratropium [place] 0.5 mg Q4HPRN PRN NEB 08/06/24 21:15 08/12/24 18:08 0.5 MG Linezolid 300 ml @ 150 mls/hr Q12HR IV 08/06/24 22:00 08/12/24 21:41 150 MLS/HR Acetaminophen 500 mg Q8HP PRN PO 08/06/24 21:30 Piperacillin Sod/ Tazobactam Sod 100 ml @ 25 mls/hr Q12H IV 08/07/24 18:00 08/12/24 17:04 25 MLS/HR Ondansetron HCl 4 mg Q4HPRN PRN IV 08/08/24 06:00 Hold 08/11/24 15:43 4 MG Midodrine 10 mg TID@0600,1200,1800 PO 08/08/24 12:00 08/12/24 17:04 10 MG Levalbuterol HCl 0.625 mg Q6HR NEB 08/08/24 18:00 08/12/24 18:09 0.625 MG Throat Lozenges 1 nuno Q2HP PRN MT 08/09/24 13:00 08/09/24 14:37 1 NUNO Norepinephrine Bitartrate 250 ml @ 3.75 mls/hr Q24H IV 08/09/24 14:30 08/11/24 21:56 3.75 MLS/HR Vasopressin 20 units/Sodium Chloride 100 ml @ 9 mls/hr Q11H7M IV 08/09/24 14:30 08/10/24 01:33 9 MLS/HR Acetaminophen/ Hydrocodone Bitart 1 tab Q6HPRN PRN PO 08/09/24 20:00 Metoclopramide HCl 5 mg Q6HPRN PRN IV 08/10/24 04:30 08/10/24 21:59 5 MG Pantoprazole Sodium 40 mg DAILY IV 08/12/24 10:00 08/12/24 09:12 40 MG Loperamide HCl 2 mg Q6HPRN PRN PO 08/11/24 09:30 Promethazine HCl 25 mg Q6HP PRN PO 08/12/24 10:30 08/12/24 11:54 25 MG objective Gen.: Patient lying in bed in no apparent distress. On supplemental oxygen. Eyes: EOMI/PERRLA. Chest: Decreased air entry bilaterally. No wheezing or rhonchi. Cardiovascular: Positive S1, positive S2. Regular rate and rhythm. Abdomen: Positive bowel sounds in all 4 quadrants. Soft, non-tender, non- distended. Skin: Warm, dry. Intact. Extremities: 2+ radial pulses bilaterally. No lower extremity edema. Neuro: Awake, alert, oriented x3. laboratory and microbiology Laboratory Tests 08/12/24 04:41 Test 08/12/24 04:41 Range/Units Serum Glucose 96 74-106 mg/dL Problems(with codes): (1) Acute renal failure (2) Autonomic dysfunction (3) Generalized weakness (4) Elevated CA 19-9 level (5) Weight loss (6) Abnormal finding on GI tract imaging (7) Elevated liver enzymes (8) Lactic acid acidosis (9) Retroperitoneal hemorrhage Prognosis Plan I believe the labs yesterday might have been erroneous; today's labs are moved consistent with his clinical picture Patient is scheduled for hemodialysis tomorrow Patient has evidence of a retroperitoneal hemorrhage of unclear etiology H&H is stable and hemoglobin is 11.1 and patient has no abdominal pain Mild elevation in CA 19- 9 but no clear-cut evidence of mass on CT Recommend getting MRI of the abdomen when patient is stable and then consider outpatient elective endoscopic ultrasound if required Monitor labs, advance diet as tolerated, IV follow up patient with you Outpatient elective EGD and colonoscopy also when medically stabilized Dietary Evaluation Review Comments: 1) Advance to renal specific 40gm 2) Monitor wt trend, lab values, PO intake Expected Outcomes/Goals: To meet >75% estimated needs Fu 3-5 days Plan discussed with: Patient, Other (TETO Nurse) KATHARINE CARLOS MD Aug 13, 2024 00:08
[2024-08-13] MEDS: HYDROcodone-ACET 5/325MG TAB PO PRN (01:41)
[2024-08-13] MEDS: DEXTROSE 50% SYRINGE 50 ML IV ONE ×2 (02:12→06:41)
[2024-08-13] MEDS: ALBUMIN 5% 250 ML IV ONE ×3 (02:46→05:07)
[2024-08-13] MEDS: SODIUM BICARB 8.4% 50Meq/50ml SYR Vial IV ONE ×3 (02:46→08:15)
[2024-08-13] MEDS: SODIUM BICARB 50mEq/50ml Vial 50 ML in SOD CHL 0.45% 1,000 ML IV SCH (02:46)
[2024-08-13 02:50] LABS: Base Excess -22.3 mmol/L (-2.0-3.0)
[2024-08-13 02:54] LABS: Potassium 5.1 mmol/L (3.5-5.1)
[2024-08-13 02:55] LABS: Anion Gap 32 (5-15)
[2024-08-13 03:01] LABS: BUN/Creatinine Ratio 10.8 (10.0-20.0)
[2024-08-13 03:29] LABS: Chloride 90 mmol/L (98-107); Lactic Acid w/Reflex 20.7 mmol/L (0.4-2.0); Sodium 133 mmol/L (136-145)
[2024-08-13 03:30] LABS: Blood Urea Nitrogen 59 mg/dL (9-23); Calcium 6.8 mg/dL (8.7-10.4); Carbon Dioxide 11 mmol/L (20-31); Glucose 543 mg/dL (74-106)
[2024-08-13 03:36] LABS: Basophils # (auto) 0 10 ^3/uL (0-0.2); Basophils % (auto) 0.3 % (0.0-2.0); Eosinophils # (auto) 0 10 ^3/uL (0-0.8); Eosinophils % (auto) 0.2 % (0.0-7.0); Hematocrit 36.6 % (41.0-53.0); Hemoglobin 10.8 g/dL (13.5-17.5); Lymphocytes # (auto) 0.6 10 ^3/uL (0.4-5.4); Lymphocytes % (auto) 12.7 % (10.0-50.0); Mean Corpuscular Hgb Conc. 29.6 g/dL (32.0-36.0); Mean Corpuscular Volume 104.8 fL (80.0-100.0); Monocytes # (auto) 0.2 10 ^3/uL (0-1.3); Neutrophils # (auto) 4.1 10 ^3/uL (1.6-8.6); Neutrophils % (auto) 82.8 % (37.0-80.0); Platelet Count (auto) 60 10^3/uL (140-450); Red Blood Cells 3.49 10^6/uL (4.5-5.90); Red Cell Distribution Width 22.8 % (11.8-14.3); White Blood Cell 4.9 10^3/uL (4.4-10.8)
[2024-08-13 03:37] LABS: Nucleated Red Blood Cells % 10.8 %
[2024-08-13] MEDS: PHENYLEPHRINE IV 250 ML IV ONE (03:51)
[2024-08-13] MEDS: SODIUM CHLORIDE 0.9% 500 ML IV ONE (04:00)
--- NOTE | 2024-08-13 04:55 | DVH ---
CHEST RADIOGRAPH Indication: SOB Technique: Single frontal view of the chest was obtained COMPARISON: XY CHEST PORTABLE on DOS: 08/09/24, XY CHEST PORTABLE on DOS: 08/08/24, XY CHEST XRAY 1 VIE W on DOS: 08/08/24, XY CHEST PORTABLE on DOS: 08/07/24, XY CHEST PORTABLE on DOS: 08/06/24 FINDINGS: Lines and Tubes: Right and left central venous catheter in satisfactory position Lungs: Multifocal airspace disease Pleura: Small bilateral pleural effusions No pneumothorax. Cardiomediastinal contours: Unremarkable Bones: Unremarkable IMPRESSION: Lines and tubes in satisfactory position. Unchanged to slightly increased pulmonary edema
[2024-08-13] MEDS: PHENYLEPHRINE IV 250 ML IV SCH (05:05)
[2024-08-13 05:15] LABS: Anisocytosis Slight; Macrocytosis Slight; Platelet Estimate Decreased
[2024-08-13 05:16] LABS: Polychromasia Slight
[2024-08-13 06:00] LABS: White Blood Cell 5.7 10^3/uL (4.4-10.8)
[2024-08-13 06:08] LABS: Hematocrit 39.2 % (41.0-53.0); Hemoglobin 11.9 g/dL (13.5-17.5); Mean Corpuscular Hemoglobin 31.8 pg (28.0-32.0); Mean Corpuscular Hgb Conc. 30.4 g/dL (32.0-36.0); Mean Corpuscular Volume 104.6 fL (80.0-100.0); Platelet Count (auto) 60 10^3/uL (140-450); Red Blood Cells 3.75 10^6/uL (4.5-5.90); Red Cell Distribution Width 23.1 % (11.8-14.3)
[2024-08-13 06:14] LABS: Basophils % (manual) 0 (0.0-2.0); Blast Cells 0; Eosinophils % (manual) 0 (0-7); Promyelocytes % 0; Reactive Lymphocytes 0
[2024-08-13 06:22] LABS: Anion Gap 33.00001 (5-15); BUN/Creatinine Ratio 11.2 (10.0-20.0); Sodium 137 mmol/L (136-145)
[2024-08-13 06:40] LABS: Chloride 94 mmol/L (98-107); Potassium 5.3 mmol/L (3.5-5.1)
[2024-08-13] MEDS: EPINEPHrine HCL 250 ML IV ONE (06:41)
[2024-08-13 06:42] LABS: Alanine Aminotransferase 387 U/L (7-40); Alkaline Phosphatase 1081 U/L (46-116); Aspartate Aminotransferase 1512 U/L (<34); Bilirubin, Total 9.4 mg/dL (0.2-1.0); Blood Urea Nitrogen 60 mg/dL (9-23); Calcium 8.2 mg/dL (8.7-10.4); Glucose 56 mg/dL (74-106); Total Protein 4.4 g/dL (5.7-8.2)
[2024-08-13 06:43] LABS: Carbon Dioxide < 10 mmol/L (20-31)
[2024-08-13] MEDS: EPINEPHrine HCL 250 ML IV SCH (06:45)
[2024-08-13] MEDS ORDERED: CLINDAMYCIN 300MG IV 50 ML IV ONE (06:45)
[2024-08-13] MEDS: SODIUM BICARB 50mEq/50ml Vial 100 ML in SOD CHL 0.45% 1,000 ML IV SCH (06:45)
--- NOTE | 2024-08-13 06:48 | DVHNC2 ---
Intubation Indication: Respiratory Insufficiency, Altered Mental Status Prep: Preoxygenation Pretreated with: Analgesia Intubation Approach: Orotracheal Intubation size: cm (24) Informed consent obtained: No Risks/benefits/alt described: No Notes Supervised by Dr. Diana Date of Service: Aug 13, 2024 Billing Provider: BETO DIANA MD Common Visit Codes: PROCEDURE ONLY JHON LOWERY RESIDENT Aug 13, 2024 06:48
[2024-08-13 06:54] LABS: Anisocytosis Slight; Band Neutrophils % (manual) 1; Lymphocytes % (manual) 8 (10.0-50.0); Macrocytosis Slight; Metamyelocytes % 1; Monocytes % (manual) 6 (0-12); Myelocytes % 1
[2024-08-13 06:55] LABS: Platelet Estimate Decreased; Polychromasia Slight
--- NOTE | 2024-08-13 07:20 | RESUS ---
CODE BLUE ASSESSSMENT History of Events History of Events: Patient had his 3rd dialysis yesterday. Started having hypotension. 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 Levophed added . Now, code blue , asystole. Initial Information Date: Aug 13, 2024 Time: 06:22 Location of Arrest: [place] Arrest Witnessed: Yes CPR started initial time: 06:22 CPR started by whom: Hospital Staff Last seen well: 620 Type of arrest: Cardiac, Respiratory Spontaneous Respirations: No Pulse Present: No Monitoring: ECG, Pulse Oximetry Crash Cart Opened and Supplies: Yes Comment: only drugs used Airway Ventilation Breathing at Onset: Apneic O2 Sat by Pulse Oximetry: 0 Oxygen Delivery Method: Ambu-Bag Oxygen 100% Time of first Assisted Ventila: 06:22 Artificial Ventilation: Bag/Mask Intubation Time: 06:32 Intubation Size: 8.0 cuffed Intubated by: Christina Puente Intubation Attempts: 1 Intubated orally: Yes Tube secured at: 24 Cricoid pressure done: Yes CO2 indicator used: Yes Confirmation: Auscultation, Chest X-ray Suctioning (Oral/Tracheal): Yes Circulation Circulation #1: Time: 06:22 Pulse Rate (adult): 0 Blood Pressure Systolic: 0 Blood Pressure Diastolic: 0 Temperature (Fahrenheit): 96.4 Circulation Comment: cpr in progress Circulation #2: Time: 06:24 Pulse Rate (adult): 0 Blood Pressure Systolic: 00 Blood Pressure Diastolic: 0 Temperature (Fahrenheit): 96.4 Circulation Comment: cpr in progress Circulation #3: Time: 06:26 Pulse Rate (adult): 0 Blood Pressure Systolic: 0 Blood Pressure Diastolic: 0 Temperature (Fahrenheit): 96.4 Circulation #4: Time: 06:28 Pulse Rate (adult): 0 Blood Pressure Systolic: 0 Blood Pressure Diastolic: 0 Temperature (Fahrenheit): 96.4 Circulation Comment: cpr in progress Circulation #5: Time: 06:30 Pulse Rate (adult): 0 Blood Pressure Systolic: 0 Blood Pressure Diastolic: 0 Temperature (Fahrenheit): 96.4 Circulation Comment: cpr in progress Circulation #6: Time: 06:32 Pulse Rate (adult): 0 Blood Pressure Systolic: 0 Blood Pressure Diastolic: 0 Temperature (Fahrenheit): 96.4 Circulation Comment: cpr in progress Circulation #7: Time: 06:33 Pulse Rate (adult): 82 Blood Pressure Systolic: 64 Blood Pressure Diastolic: 32 Temperature (Fahrenheit): 96.4 Circulation Comment: pulse palpated with regular rhythm Medications & Response Medications and Responses #1: Medication Time: 06:22 ADULT Medications Given ADULT: Epinephrine 1 mg Route of Administration: IV Medication Comment: asystole, pulse check Heart Rate: 0 EKG Rhythm: Asystole Blood Pressure Systolic: 0 Blood Pressure Diastolic: 0 Respiratory Rate: 0 O2 Sat by Pulse Oximetry: 0 EKG Rhythm: Asystole Medications and Responses #2: Medication Time: 06:24 ADULT Medications Given ADULT: Sodium Bacarbinate 50 meq Route of Administration: IV Medication Comment: pulse check Heart Rate: 0 EKG Rhythm: Asystole Blood Pressure Systolic: 0 Blood Pressure Diastolic: 0 Respiratory Rate: 0 O2 Sat by Pulse Oximetry: 0 EKG Rhythm: Asystole Medications and Responses #3: Medication Time: 06:25 ADULT Medications Given ADULT: Epinephrine 1 mg, Calcium Chloride 10 mL Route of Administration: IV Heart Rate: 0 EKG Rhythm: Asystole Blood Pressure Systolic: 0 Blood Pressure Diastolic: 0 Respiratory Rate: 0 O2 Sat by Pulse Oximetry: 0 EKG Rhythm: Asystole Medications and Responses #4: Medication Time: 06:26 ADULT Medications Given ADULT: Sodium Bacarbinate 50 meq Medication Comment: pulse check EKG Rhythm: Asystole Blood Pressure Systolic: 0 Blood Pressure Diastolic: 0 Respiratory Rate: 0 O2 Sat by Pulse Oximetry: 0 EKG Rhythm: Asystole Medications and Responses #5: Medication Time: 06:28 ADULT Medications Given ADULT: Epinephrine 1 mg Route of Administration: IV Medication Comment: pulse check Heart Rate: 0 EKG Rhythm: Asystole Blood Pressure Systolic: 0 Blood Pressure Diastolic: 0 Respiratory Rate: 0 O2 Sat by Pulse Oximetry: 0 EKG Rhythm: Asystole Medications and Responses #6: Medication Time: 06:30 ADULT Medications Given ADULT: Sodium Bacarbinate 50 meq Route of Administration: IV Heart Rate: 0 EKG Rhythm: Asystole Blood Pressure Systolic: 0 Blood Pressure Diastolic: 0 Respiratory Rate: 0 EKG Rhythm: Asystole Medications and Responses #7: Medication Time: 06:31 ADULT Medications Given ADULT: Epinephrine 1 mg Route of Administration: IV Medication Comment: pulse check and cpr in progress Heart Rate: 0 EKG Rhythm: Asystole Blood Pressure Systolic: 0 Blood Pressure Diastolic: 0 Respiratory Rate: 0 O2 Sat by Pulse Oximetry: 0 EKG Rhythm: Asystole Medications and Responses #8: Medication Time: 06:33 Heart Rate: 84 EKG Rhythm: Sinus Rhythm Blood Pressure Systolic: 82 Blood Pressure Diastolic: 64 Respiratory Rate: 12 O2 Sat by Pulse Oximetry: 0 EKG Rhythm: Sinus Rhythm Nurses Notes Richardson Coma Scale Eye Opening: None (1) [place] Coma Scale Verbal: None (1) Tarik Coma Scale Motor: None (1) Pupil Reaction: Non Reactive Bedside Blood Glucose: 134 EKG Rhythm: Sinus Rhythm Time Code Ended Time Code Ended: 06:33 Post Arrest Status: Ventilated Outcome of code: Successful Family notified: Yes Attending called: Yes Code Team Present: MD ADALGISA, Balaji JAIME RT: [place] MARIN RN: ERIC CHURCHILL CRYSTAL B, WENDY, GENESIS. AUTO COLLISION REPAIR INSTRUCTOR : GLENN Post Resuscitation Neurologica Pupil Size: 4 Comment: GLENN PIZARRO Aug 13, 2024 07:20
--- NOTE | 2024-08-13 07:35 | ECG ---
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
[2024-08-13] MEDS ORDERED: SODIUM BICARB 8.4% 50Meq/50ml SYR Vial IV ONE (08:47)
--- NOTE | 2024-08-13 09:06 | CODING ---
Date of Service: Aug 13, 2024 Billing Provider: TAY GANT NP Common Visit Codes: PROCEDURE ONLY Procedure Codes: [id number] CODE TAY BROOKE NP Aug 13, 2024 09:06
[2024-08-13] MEDS: SODIUM BICARB 50mEq/50ml Vial 150 ML in D5W/SOD CHL 0.45% 1,000 ML IV SCH (09:15)
[2024-08-13 09:34] LABS: Base Excess -21.7 mmol/L (-2.0-3.0)
[2024-08-13] MEDS ORDERED: SODIUM BICARB 8.4% 50Meq/50ml SYR INJ ONE (10:08)
--- NOTE | 2024-08-13 10:12 | RESUS ---
TIFFANY QUINTERO ASSESSSMENT History of Events History of Events: Patient currently ICU admit intubated and ventilated. Per primary RN, rapid decrease in HR noted on bedside monitoring and evaluation advisor. Upon assessment and palpation, no palpable pulse detected. TIFFANY BLUE initiated. CPR started Initial Information Date: Aug 13, 2024 Time: 08:24 Location of Arrest: ICU (Central) Arrest Witnessed: Yes CPR started initial time: 08:24 CPR started by whom: Hospital Staff Pre-Hospital Care: ACLS Type of arrest: Cardiac Spontaneous Respirations: No Pulse Present: No Monitoring: Pulse Oximetry, Capnography, Telemetry Crash Cart Opened and Supplies: Yes Airway Ventilation Breathing at Onset: Assisted Oxygen Delivery Method: Mechanical Ventilator Artificial Ventilation: Bag/Endo tube Comments: patient intubated prior to CODE BLUE Circulation Circulation #1: Time: 08:26 Circulation Comment: PEA Circulation #2: Time: 08:28 Circulation Comment: PEA Circulation #3: Time: 08:31 Pulse Rate (adult): 114 Blood Pressure Systolic: 109 Blood Pressure Diastolic: 51 Circulation Comment: ROSC SINUS TACH 114 Medications & Response Medications and Responses #1: Medication Time: 08:25 ADULT Medications Given ADULT: Epinephrine 1 mg Route of Administration: IV Medications and Responses #2: Medication Time: 08:27 ADULT Medications Given ADULT: Sodium Bacarbinate 50 meq Route of Administration: IV Medications and Responses #3: Medication Time: 08:28 ADULT Medications Given ADULT: Epinephrine 1 mg Route of Administration: IV Medications and Responses #4: Medication Time: 08:30 ADULT Medications Given ADULT: Sodium Bacarbinate 50 meq Procedure - Central Venous Cat Comment: LEFT IJ, IN PLACE PRIOR TO TIFFANY QUINTERO Nurses Notes Tarik Coma Scale Eye Opening: None (1) Wright Coma Scale Verbal: None (1) Wright Coma Scale Motor: None (1) Pupil Reaction: Non Reactive Bedside Blood Glucose: 80 Time Code Ended Time Code Ended: 08:31 Post Arrest Status: Ventilated Outcome of code: Successful Attending called: Yes Code Team Present: CURB SETTER ALFREDA RESIDENT DR PORFIRIO PETERSON ROSC Time of ROSC: 08:31 Pam Austin Aug 13, 2024 10:12
--- NOTE | 2024-08-13 10:18 | RESUS ---
TIFFANY QUINTERO ASSESSSMENT History of Events History of Events: Patient currently ICU admit intubated and ventilated. Per primary RN, rapid decrease in HR noted on bedside high tension tester. Upon assessment and palpation, no palpable pulse detected. CODE BLUE initiated. CPR started Initial Information Date: Aug 13, 2024 Time: 09:24 Location of Arrest: ICU (Central) Arrest Witnessed: Yes CPR started initial time: 09:24 CPR started by whom: Hospital Staff Pre-Hospital Care: ACLS Type of arrest: Cardiac, Witnessed Spontaneous Respirations: No Pulse Present: No Monitoring: Pulse Oximetry, Capnography, Telemetry Crash Cart Opened and Supplies: Yes Airway Ventilation Breathing at Onset: Assisted Oxygen Delivery Method: Mechanical Ventilator Comments: PATIENT INTUBATED PRIOR TO CODE BLUE Circulation Circulation #1: Time: :26 Circulation Comment: PEA Circulation #2: Time: 09:28 Pulse Rate (adult): 96 (6) Blood Pressure Systolic: 141 Blood Pressure Diastolic: 112 Circulation Comment: ROSC Medications & Response Medications and Responses #1: Medication Time: 09:24 ADULT Medications Given ADULT: Epinephrine 1 mg Route of Administration: IV Medications and Responses #2: Medication Time: 09:27 ADULT Medications Given ADULT: Epinephrine 1 mg Route of Administration: IV Procedure - Central Venous Cat Comment: IN PLACE PRIOR TO TIFFANY QUINTERO Nurses Notes [place] Coma Scale Eye Opening: None (1) [place] Coma Scale Verbal: None (1) Tarik Coma Scale Motor: None (1) Pupil Reaction: Non Reactive Bedside Blood Glucose: 91 Time Code Ended Time Code Ended: 09:28 Post Arrest Status: Ventilated Outcome of code: Successful Attending called: Yes Code Team Present: DR ALIYAH PETERSON ROSC Time of ROSC: 09:28 Date of Service: Aug 13, 2024 Billing Provider: RIZWANA WASHINGTON MD Common Visit Codes: PROCEDURE ONLY Procedure Codes: [id number] CODE Pam Lantigua Aug 13, 2024 10:18 RIZWANA WASHINGTON MD Aug 13, 2024 22:42
--- NOTE | 2024-08-13 10:29 | DVHPN2 ---
Progress Note Date Seen: Aug 13, 2024 Has the PT tested + for MRSA If YES, has PT been informed?: No Medical Necessity Reason Pt with a Central, PICC or Fol: No The following are medically ne: Central Line, [place] Catheter Subjective Patient reports: Feels worse (multiple cardiac events overnight , pH 7.0 ) Review of Systems: Deferred Objective vital signs Vital Sign Date Time Temp Pulse Resp B/P (MAP) Pulse Ox O2 Delivery O2 Flow Rate FiO2 08/13/24 10:18 96 Mechanical Ventilator 08/13/24 09:20 28 125/81 (96) 100 08/13/24 07:20 205.5 0 0 08/13/24 06:00 2 Total Intake and Output 08/12/24 08/12/24 08/13/24 15:00 23:00 07:00 Intake Total 300 ml 379.75 ml 858.00 ml Output Total 50 ml 30 ml Balance 300 ml 329.75 ml 828.00 ml medications Current Medications Medications Dose Ordered Sig/Mary Route Start Time Stop Time Status Last Admin Dose Admin Ipratropium [place] 0.5 mg Q4HPRN PRN NEB 08/06/24 21:15 08/13/24 05:36 0.5 MG Linezolid 300 ml @ 150 mls/hr Q12HR IV 08/06/24 22:00 08/12/24 21:41 150 MLS/HR Acetaminophen 500 mg Q8HP PRN PO 08/06/24 21:30 Piperacillin Sod/ Tazobactam Sod 100 ml @ 25 mls/hr Q12H IV 08/07/24 18:00 08/12/24 17:04 25 MLS/HR Ondansetron HCl 4 mg Q4HPRN PRN IV 08/08/24 06:00 Hold 08/11/24 15:43 4 MG Midodrine 10 mg TID@0600,1200,1800 PO 08/08/24 12:00 08/12/24 17:04 10 MG Levalbuterol HCl 0.625 mg Q6HR NEB 08/08/24 18:00 08/13/24 05:36 0.625 MG Throat Lozenges 1 nuno Q2HP PRN MT 08/09/24 13:00 08/09/24 14:37 1 NUNO Norepinephrine Bitartrate 250 ml @ 3.75 mls/hr Q24H IV 08/09/24 14:30 08/13/24 07:57 56.25 MLS/HR Vasopressin 20 units/Sodium Chloride 100 ml @ 9 mls/hr Q11H7M IV 08/09/24 14:30 08/13/24 02:29 9 MLS/HR Metoclopramide HCl 5 mg Q6HPRN PRN IV 08/10/24 04:30 08/10/24 21:59 5 MG Pantoprazole Sodium 40 mg DAILY IV 08/12/24 10:00 08/12/24 09:12 40 MG Loperamide HCl 2 mg Q6HPRN PRN PO 08/11/24 09:30 Promethazine HCl 25 mg Q6HP PRN PO 08/12/24 10:30 08/12/24 11:54 25 MG Phenylephrine HCl 250 ml @ 30 mls/hr Q8H20M IV 08/13/24 04:00 08/13/24 08:58 135 MLS/HR Epinephrine HCl 250 ml @ 7.5 mls/hr Q24H IV 08/13/24 06:45 08/13/24 06:45 7.5 MLS/HR Sodium Bicarbonate 150 ml/Dextrose/ Sodium Chloride 1,150 ml @ 100 mls/hr [id number] IV 08/13/24 09:15 Examination: GENERAL:Abnormal, LUNGS:Abnormal, SKIN:Abnormal laboratory and microbiology Laboratory Tests 08/13/24 05:02 Test 08/13/24 05:02 Range/Units Serum Glucose 56 #L 74-106 mg/dL Microbiology Date/Time Source Procedure Growth Status 08/09/24 17:30 Throat Nose/Throat Culture - Final Complete 08/09/24 02:07 Stool Stool Culture - Final Complete 08/09/24 02:07 Stool Shiga Toxin I & II - Final Complete 08/07/24 03:03 Nose MRSA Screen - Final Complete 08/06/24 21:51 Blood Blood Culture - Final NO GROWTH AFTER 5 DAYS OF INCUBATION. Complete Problem List/Assessment/Plan Problem List/Assessment/Plan Acute kidney injury Toxic encephalopathy COPD exacerbation-> acute respiratory failure intubated this am cardiac arrest AFib Metabolic acidosis Jaundice Transaminitis Retroperitoneal hemorrhage Anemia of chronic kidney disease multiple cardiac events multi organ failure severe acidosis very poor prognosis grim too unstable for conventional dialysis due to cardiac events critical care time spent 40 mins Plan discussed with: Other My Orders My Orders Orders - LISA HANLEY MD Procedure Category Date Status Time Hemodialysis Orders ORDERS 08/13/24 Transmitted 08:02 Dietary Evaluation Review Comments: 1) Advance to renal specific 40gm 2) Monitor wt trend, lab values, PO intake Expected Outcomes/Goals: To meet >75% estimated needs Fu 3-5 days LISA HANLEY MD Aug 13, 2024 10:29
--- NOTE | 2024-08-13 10:36 | RESUS ---
TIFFANY QUINTERO ASSESSSMENT History of Events History of Events: Patient currently ICU admit intubated and ventilated. Per primary RN, rapid decrease in HR noted on bedside solar sales energy advisor. Upon assessment and palpation, no palpable pulse detected. TIFFANY QUINTERO initiated. CPR started Initial Information Date: Aug 13, 2024 Time: 09:56 Location of Arrest: ICU (Central) Arrest Witnessed: Yes CPR started by whom: Hospital Staff Pre-Hospital Care: ACLS Type of arrest: Cardiac, Witnessed Spontaneous Respirations: No Pulse Present: No Monitoring: Pulse Oximetry, Capnography, Telemetry Crash Cart Opened and Supplies: Yes Airway Ventilation Breathing at Onset: Assisted Oxygen Delivery Method: Mechanical Ventilator Comments: INTUBATED PRIOR TO TIFFANY BLUE Circulation Circulation #1: Time: 09:59 Circulation Comment: PEA Circulation #2: Time: 10:01 Circulation Comment: PEA Circulation #3: Time: 10:03 Pulse Rate (adult): 84 Blood Pressure Systolic: 116 Blood Pressure Diastolic: 90 Circulation Comment: ROSC Medications & Response Medications and Responses #1: Medication Time: 09:57 ADULT Medications Given ADULT: Epinephrine 1 mg Route of Administration: IV Medications and Responses #2: Medication Time: 09:58 ADULT Medications Given ADULT: Sodium Bacarbinate 50 meq, Calcium Chloride 10 mL Route of Administration: IV Medications and Responses #3: Medication Time: 10:00 ADULT Medications Given ADULT: Epinephrine 1 mg Route of Administration: IV Medications and Responses #4: Medication Time: 10:01 ADULT Medications Given ADULT: Sodium Bacarbinate 50 meq Route of Administration: IV Medications and Responses #5: Medication Time: 10:05 ADULT Medications Given ADULT: 2 Amps Na Bicarb Route of Administration: IV Medication Comment: VERBAL ORDER RECEIVED FROM DR HANLEY Procedure - Central Venous Cat Comment: IN PLACE PRIOR TO TIFFANY QUINTERO Nurses Notes Tarik Coma Scale Eye Opening: None (1) Tarik Coma Scale Verbal: None (1) Tarik Coma Scale Motor: None (1) Pupil Reaction: Non Reactive Bedside Blood Glucose: 73 Time Code Ended Time Code Ended: 10:03 Post Arrest Status: Ventilated Attending called: Yes Code Team Present: DR TALON MONROY RN YOSSI RN JAYDEN PETERSON ROSC Time of ROSC: 10:03 Pam Austin Aug 13, 2024 10:36
--- NOTE | 2024-08-13 11:18 | RESUS ---
TIFFANY QUINTERO ASSESSSMENT History of Events History of Events: Patient currently ICU admit intubated and ventilated. Per primary RN, rapid decrease in HR noted on bedside healthcare management. Upon assessment and palpation, no palpable pulse detected. TIFFANY QUINTERO initiated. CPR started Initial Information Date: Aug 13, 2024 Time: 10:38 Location of Arrest: ICU (Central) Arrest Witnessed: Yes CPR started by whom: Hospital Staff Type of arrest: Cardiac Spontaneous Respirations: No Pulse Present: No Monitoring: Pulse Oximetry, Apnea, Capnography, Telemetry Crash Cart Opened and Supplies: Yes Airway Ventilation Breathing at Onset: Assisted Oxygen Delivery Method: Mechanical Ventilator Comments: intubated prior to code blue Circulation Circulation #1: Time: 10:40 Circulation Comment: PEA Circulation #2: Time: 10:42 Circulation Comment: PEA TOD Medications & Response Medications and Responses : Medication Time: 10:38 ADULT Medications Given ADULT: Epinephrine 1 mg Route of Administration: IV Procedure - Central Venous Cat Comment: IN PLACE PRIOR TO TIFFANY QUINTERO Nurses Notes [place] Coma Scale Eye Opening: None (1) [place] Coma Scale Verbal: None (1) Tarik Coma Scale Motor: None (1) Pupil Reaction: Non Reactive Bedside Blood Glucose: 73 Time Code Ended Time Code Ended: 10:42 Post Arrest Status: Outcome of code: Unsuccessful Patient pronounced by: DR AYALA/ DR DUARTE Time patient pronounced: 10:42 Family notified: No Attending called: Yes Code Team Present: DR MONROY RN JAYDEN RN YOSSI YATES RN PAM RT MARCE Comment: MULTIPLE ATTEMPTS TO CONTACT PATIENTS SISTER LISTED NEXT OF KIN. NO ANSWER. Date of Service: Aug 13, 2024 Billing Provider: SARAH DUARTE MD Common Visit Codes: PROCEDURE ONLY Procedure Codes: [id number] Pam King Aug 13, 2024 11:18 SARAH DUARTE MD Aug 20, 2024 16:10
--- NOTE | 2024-08-13 13:13 | DVHDS2 ---
Summary Date of Admission Aug 06, 2024 at 21:07 Date and Time of Expiration: Aug 13, 2024 10:42 Reason for Admission: septic shock Labs/Diagnostic Data: Laboratory Results Test 08/13/24 10:01 08/13/24 09:10 08/13/24 05:02 08/13/24 02:20 POC Glucose 73 mg/dl (70-106) Blood Gas Specimen Type Arterial Blood Gas Sample Site Right radial Blood Gas Patient Temperature 37.0 Arterial Blood Date Drawn [id number] Arterial Blood pH 6.924 (7.350-7.450) Arterial Blood Partial Pressure CO2 47.9 mmHg (35.0-48.0) Arterial Blood Partial Pressure O2 100.0 mmHg (83.0-108.0) Arterial Blood HCO3 9.7 mmol/L (21.0-28.0) Arterial Blood Oxygen Saturation 91.2 % (94.0-98.0) Arterial Blood Base Excess -21.7 mmol/L (-2.0-3.0) Arterial Blood Oxyhemoglobin 90.3 % (94.0-98.0) Arterial Blood Carboxyhemoglobin 0.0 % (0.5-1.5) Arterial Blood Methemoglobin 1.0 % (0.0-1.5) Vinny Test Modified Blood Gas Total Hemoglobin 8.80 g/dL (13.5-17.5) Blood Gas Set Respiration Rate 24.0 Blood Gas Modality Vent - ac FiO2 % 60.0 Blood Gas Tidal Volume 500.0 Blood Gas PEEP or CPAP 5.0 Blood Gas Critical Value Read Back Yes Blood Gas Notified Whom Frank becerril Blood Gas Notified Time [id number] Blood Gas Notified By Royer magana White Blood Count 5.7 10^3/uL (4.4-10.8) Red Blood Count 3.75 10^6/uL (4.5-5.90) Hemoglobin 11.9 g/dL (13.5-17.5) Hematocrit 39.2 % (41.0-53.0) Mean Corpuscular Volume 104.6 fL (80.0-100.0) Mean Corpuscular Hemoglobin 31.8 pg (28.0-32.0) Mean Corpuscular Hemoglobin Concent 30.4 g/dL (32.0-36.0) Red Cell Distribution Width 23.1 % (11.8-14.3) Platelet Count 60 10^3/uL (140-450) Mean Platelet Volume 9.8 fL (6.9-10.8) Neutrophils (%) (Auto) % (37.0-80.0) Lymphocytes (%) (Auto) % (10.0-50.0) Monocytes (%) (Auto) % (0.0-12.0) Basophils (%) (Auto) % (0.0-2.0) Neutrophils # (Auto) 10 ^3/uL (1.6-8.6) Lymphocytes # (Auto) 10 ^3/uL (0.4-5.4) Monocytes # (Auto) 10 ^3/uL (0-1.3) Differential Total Cells Counted 100.0 (100) Neutrophils % (Manual) 83 (37.0-80.0) Band Neutrophils % (Manual) 1 Lymphocytes % (Manual) 8 (10.0-50.0) Monocytes % (Manual) 6 (0-12) Eosinophils % (Manual) 0 (0-7) Basophils % (Manual) 0 (0.0-2.0) Metamyelocytes % (manual) 1 Myelocytes % (Manual) 1 Promyelocytes % (Manual) 0 Blast Cells % (Manual) 0 Nucleated Red Blood Cells 10.0 % Reactive Lymphocytes 0 Platelet Estimate Decreased Polychromasia Slight Anisocytosis (manual) Slight Macrocytosis Slight Sodium Level 137 mmol/L (136-145) Potassium Level 5.3 mmol/L (3.5-5.1) Chloride Level 94 mmol/L (98-107) Carbon Dioxide Level < 10 mmol/L (20-31) Anion Gap 33.59158 (5-15) Blood Urea Nitrogen 60 mg/dL (9-23) Creatinine 5.36 mg/dL (0.700-1.30) Glomerular Filtration Rate Calc 11 mL/min (>90) BUN/Creatinine Ratio 11.2 (10.0-20.0) Serum Glucose 56 mg/dL (74-106) Lactic Acid Level 19.3 mmol/L (0.4-2.0) Calcium Level 8.2 mg/dL (8.7-10.4) Total Bilirubin 9.4 mg/dL (0.2-1.0) Aspartate Amino Transferase (AST) 1512 U/L (<34) Alanine Aminotransferase (ALT) 387 U/L (7-40) Alkaline Phosphatase 1081 U/L (46-116) Troponin I High Sensitivity 10 ng/L (</=54) Total Protein 4.4 g/dL (5.7-8.2) Albumin 3.0 g/dL (3.2-4.8) Blood Gas Liter Flow 5.00 Blood Gas Spontaneous Rate 26 Test 08/13/24 02:14 08/11/24 05:06 08/10/24 16:37 08/10/24 04:58 Eosinophils (%) (Auto) 0.2 % (0.0-7.0) Eosinophils # (Auto) 0 10 ^3/uL (0-0.8) Basophils # (Auto) 0 10 ^3/uL (0-0.2) Magnesium Level 1.9 mg/dL (1.6-2.6) Prothrombin Time 32.6 sec (9.3-11.8) Prothrombin Time INR 3.48 (0.9-1.15) Activated Partial Thromboplast Time 69.5 SEC (24.5-34.5) Lactate Dehydrogenase 637 U/L (120-246) Test 08/09/24 17:30 08/09/24 02:07 08/07/24 11:15 08/07/24 04:42 Group A Streptococcus Rapid Negative Stool Occult Blood Negative (Negative) Stool Occult Blood Sample #3 (Negative) Stool for White Cells Rare Urine Color Dark-yellow (Yellow) Urine Clarity Turbid (Clear) Urine pH 5.0 (5.0-9.0) Urine Specific [place] 1.020 (1.001-1.035) Urine Protein 1+ (Negative) Urine Ketones 1+ (Negative) Urine Blood Trace /uL (Negative) Urine Nitrite Negative (Negative) Urine Bilirubin 1+ (Negative) Urine Urobilinogen 4 mg/dL (Negative) Urine Leukocyte Esterase Negative /uL (Negative) Urine RBC 5 /hpf (0 - 3) Urine Microscopic WBC 12 /HPF (0-3) Urine Squamous Epithelial Cells Few /hpf (<5) Urine Bacteria Few /hpf (None Seen) Urine Creatinine 152.15 mg/dL (30.0-125.0) Urine Protein/Creatinine Ratio 0.76 Urine Sodium 22 mmol/L (40-220) Urine Glucose 1+ mg/dL (Normal) Urine Total Protein 115.9 mg/dL (1-14) Clumped Platelets Few Large Platelets Few Phosphorus Level 7.2 mg/dL (2.4-5.1) Tumor Marker Alpha Fetoprotein <1.8 ng/mL (0.0-8.4) Carcinoembryonic Antigen 2.73 ng/mL (<=5.0) CA 19-9 Antigen 308 U/mL (0-35) Vitamin D 25-Hydroxy 32.0 ng/mL (30.0-100) Parathyroid Hormone (Intact) 256.2 pg/mL (18.4-80.1) Hepatitis B Surface Antigen Negative (Negative) Hepatitis C Antibody Negative (Negative) Test 08/07/24 03:03 08/06/24 21:45 08/06/24 21:07 08/06/24 18:15 Influenza Type A Antigen Negative (Negative) Influenza Type B Antigen Negative (Negative) SARS-CoV-2 Antigen (Rapid) Negative (NEGATIVE) Specimen Drawn By Deisy madden rt Direct Bilirubin 2.8 mg/dL (<0.3) Hemoglobin A1c 4.7 % A1C (<5.7) B-Type Natriuretic Peptide 50.58 pg/mL (0-100) Vitamin B12 Level 1589 pg/mL (211-911) Folic Acid 14.61 ng/mL (>5.38) Thyroid Stimulating Hormone (TSH) 7.08 uIU/mL (0.55-4.78) Other Laboratory Tests 08/13/24 05:02 Brief Hx & Hospital Course: Mr. Duglas Go was a 73-year-old male with a significant past medical history of COPD, hypertension, atrial fibrillation, chronic heart failure, alcoholic liver cirrhosis and CKD He presented to the emergency department after a syncopal episode and was found to be in acute hypoxic respiratory failure, COPD exacerbation, lactic acidosis, and septic shock. Imaging revealed normal head ct scan severe centrilobular emphysema, right retroperitoneal hemorrhage, multiple pulmonary nodules, hepatomegaly, labs showed elevated liver enzymes, and severe declined of the renal function during his hospital course. He was started on broad-spectrum antibiotics (Zosyn and Linezolid), vasopressor support, and underwent emergent dialysis via Ryan catheter placed on 08/09 with a second session on 08/10. Pancultures came negative, only colonization in the urine by fabrice During his ICU course, he required levophed and vasopressin due to shock, his platelets were trending down, patient was on O2 by nasal canula, afib with RVR was also one of his problems, which required amiodarone drip. Events Leading to : On 08/13/2024 at approximately 2:00 AM, the patient developed acute respiratory distress and tachycardia. A rapid response was called. Labs at that time revealed hyperkalemia, bicarbonate 5 meq, severe metabolic acidosis and anion gap 33. Additionally, blood glucose dropped to 20 mg/dL at 6:00 AM. Dextrose given. The patient then experienced cardiac arrest at 6:30 AM. He was intubated and underwent five code blue events, during which he received 10 amps of sodium bicarbonate and was maintained on four vasopressors: epinephrine, norepinephrine, vasopressin, and phenylephrine. Patient was too unstable for dyalisis, Patient was in PEA on the five codes, multiple epinephrines amps given. Despite maximal resuscitative efforts, return of spontaneous circulation was not achieved. critical care time excluding procedures was 81 mins Family was attempted to be contacted but was not available. The patient was pronounced at 10:42 AM on 08/13/2024. 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: Other Indication: Hypotension, Volume resuscitation, Inability to obtain IV Room prepared for procedure: Yes Revenue Liaison performed hand hygien: Yes Maximal sterile barrier precau: Mask/Eye shield, Sterile gown, Cap, Sterlie gloves, Large sterlie drape Skin Preparation: Chlorhexidine gluconate Skin preparation completely dr: Yes Insertion site: Right, Internal jugular Central line catheter type: Tunneled- not dialysis Number of lumens: 3 Antiseptic ointment applied to: Yes Post Assessment: Chest X-Ray Informed consent obtained: Yes Risks/benefits/alt described: Yes Notes Central line place using the RIJ. Indication needs IV access for multiple medications. Procedure explained to the patient. Risk and benefits discussed. Procedure done under sterile condition under the supervision of my attending Dr. Castro. Procedure was successful. No complications observed. Cxr Right central venous catheter in satisfactory position. No appreciable pneumothorax. Procedure- Left IJ dialysis catheter placement ultrasound guided Indication- Renal failure and fluid removal Procedure in detail Consent was obtained and timeout performed per protocol. The patient was placed in the supine position and the left IJkl vein was localized using ultrasound SonoSite. ChloraPrep was used to clean the operative field, sterile drapes used to cover the area and local analgesia Lidocaine 1% 3 cc. Dual-lumen hemodialysis catheter was inserted over the wire with direct ultrasound guidance in the right femoral vein. The wire was removed, catheter flushed with normal saline and secured with 2 sutures. Sterile dressing applied. No complications. JSOE CASTRO MD Intubation Indication: Respiratory Insufficiency, Altered Mental Status Prep: Preoxygenation Pretreated with: Analgesia Intubation Approach: Orotracheal Intubation size: cm (24) Informed consent obtained: No Risks/benefits/alt described: No Notes Supervised by Dr. Diana Date of Service: Aug 13, 2024 Billing Provider: BETO DIANA MD Common Visit Codes: PROCEDURE ONLY Final Diagnosis/Problems List #Cardiac arrest secondary to severe metabolic acidosis #Acute metabolic encephalopathy due to severe metabolic acidosis #Syncope #Acute exacerbation on chronic diastolic heart failure #Afib with RVR #Septic shock ruled out #Possible hypovolemic shock #Acute respiratory failure due to possible COPD exacerbation #sp mechanical ventilation after cardiac arrest #Pleural effusion #COPD exacerbation #Retroperitoneal hemorrhage #Alcoholic liver cirrhosis #Transaminitis #Thrombocytopenia #Hyperbillirubinemia #FILIPPO due to VMN on CKD stage 5 #Emergent dialysis #Severe metabolic acidosis #Anemia of chronic disease #Coagulopathy Discharge Disposition: at Hospital Date of Service: Aug 13, 2024 Billing Provider: SARAH DUARTE MD Common Visit Codes: 11280-QNRHNRAR CARE 30-74 MIN, 89141-AWYTTAUR CARE-EACH +30MIN SHAWN PADRON RESIDENT Aug 13, 2024 13:13 SARAH DUARTE MD Aug 20, 2024 16:16
[2024-08-13] MEDS ORDERED: EPINEPHrine HCL 1 MG/10 ML SYRG IV ONE (15:12)
--- NOTE | 2024-08-13 16:54 | DVHSR ---
APPROVED REPORT EXAM: LIMITED Two-dimensional and M-mode echocardiogram with Doppler and color Doppler. INDICATION CODE BLUE x2 RISK FACTORS Height: 70, Weight: 153 Mitral Valve MitralMitral Stenosis E/A ratio0.02D MVAcm2 Tricuspid Valve TR Velocity2.56m/s [id number] Other Information Technically limited study due to body habitus, patient position, on a vent. Very limited views. Conclusion only subcostal images noted limited study small pericardial effusion noted adjacent to RV nomral ivc size lvef function is abnormal and depressed, lvef not relialbe in these images
--- NOTE | 2024-08-13 18:57 | ECG ---
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
--- NOTE | 2024-08-14 07:27 | ECG ---
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
== END 2024-08-13 15:20 | DRG 208 ==
LOC: ER 17:58 → EDBD 17:58 → OVERFLOW 21:07 → ICU CENTRL 08-07 03:40
PROVIDERS: ADMIT Internal Medicine; ATTEND Internal Medicine
PROC: 05HM33Z Insertion of Infusion Device into Right Internal Jugular Vein, Percutaneous Approach (ICD-10-PCS; principal; 2024-08-08)
PROC: 02HV33Z Insertion of Infusion Device into Superior Vena Cava, Percutaneous Approach (ICD-10-PCS; 2024-08-09)
PROC: B548ZZA Ultrasonography of Superior Vena Cava, Guidance (ICD-10-PCS; 2024-08-09)
PROC: 5A1D70Z Performance of Urinary Filtration, Intermittent, Less than 6 Hours Per Day (ICD-10-PCS; 2024-08-09)
PROC: 5A1D70Z Performance of Urinary Filtration, Intermittent, Less than 6 Hours Per Day (ICD-10-PCS; 2024-08-10)
PROC: 0BH17EZ Insertion of Endotracheal Airway into Trachea, Via Natural or Artificial Opening (ICD-10-PCS; 2024-08-13)
PROC: 5A1935Z Respiratory Ventilation, Less than 24 Consecutive Hours (ICD-10-PCS; 2024-08-13)
PROC: 5A12012 Performance of Cardiac Output, Single, Manual (ICD-10-PCS; 2024-08-13)
DX: J96.01 Acute respiratory failure with hypoxia (principal); G93.41 Metabolic encephalopathy; J69.0 Pneumonitis due to inhalation of food and vomit; N17.0 Acute kidney failure with tubular necrosis; K68.3 Retroperitoneal hematoma; I50.33 Acute on chronic diastolic (congestive) heart failure; J18.9 Pneumonia, unspecified organism; J44.1 Chronic obstructive pulmonary disease with (acute) exacerbation; D68.9 Coagulation defect, unspecified; E87.20 Acidosis, unspecified; I13.2 Hypertensive heart and chronic kidney disease with heart failure and with stage 5 chronic kidney disease, or end stage renal disease; N18.5 Chronic kidney disease, stage 5; Z20.822 Contact with and (suspected) exposure to COVID-19; I48.91 Unspecified atrial fibrillation; I46.9 Cardiac arrest, cause unspecified; D69.6 Thrombocytopenia, unspecified; G90.89 Other disorders of autonomic nervous system; E87.5 Hyperkalemia; R59.0 Localized enlarged lymph nodes; J43.2 Centrilobular emphysema; D63.1 Anemia in chronic kidney disease; R74.01 Elevation of levels of liver transaminase levels; K70.30 Alcoholic cirrhosis of liver without ascites; E80.6 Other disorders of bilirubin metabolism; F17.200 Nicotine dependence, unspecified, uncomplicated; Z80.9 Family history of malignant neoplasm, unspecified; Z99.81 Dependence on supplemental oxygen; Z79.899 Other long term (current) drug therapy
CPT/HCPCS: 36415; 36556; 36600; 70450; 71045; 71250; 74176; 76705; 76775; 80048; 80053; 80076; 81001; 82105; 82270; 82306; 82378; 82570; 82607; 82746; 82805; 82962; 83036; 83605; 83615; 83735; 83880; 83970; 83986; 84100; 84156; 84300; 84443; 84484; 85007; 85025; 85027; 85048; 85610; 85730; 86301; 86803; 87040; 87045; 87070; 87081; 87086; 87088; 87205; 87340; 87426; 87427; 87804; 87880; 90935; 92950; 93005; 93306; 93970; 94002; 94640; 94644; 96365; 99291; G0378; J0171; J1642; J2405; J2470; J2543; P9047